=== PATIENT | male | born 1950 | race Caucasian/White ===

== ENCOUNTER → 2016-07-09 | Outpatient (CLI) | payer OTHER ==
[~2016-07-09] MED LIST: ALBINS/ INH; ALBU18002; ALBU1NEB10 INH; AMPHOTERICIN INH; CALC500C3 OR; CALC667C4 PO; DILT120C68 PO; EVER0.5T PO; GUAI1TAB55 PO; INSDGI SC; LEVO75TA PO; LVQ500 PO; MELA3TAB PO; MTR500 PO; MULT-506 PO; MYC180 PO; NVLG SC; NVLGI SC; ONDA4TAB46 PO; OXYC1CAP5 PO; PANT40TA2 PO; POSA1TAB PO; PRED-301 PO; SERT-234 PO; SULF-302 PO; SULF400T7 PO; SUVO1TAB PO; TACR0.5C3 PO; TACR1CAP14 PO; TRMCR515 TOP; VNTHFA/IN INH; ZOLP5TAB6 PO; [UNRECOGNIZED DRUG - CODE] INH; [UNRECOGNIZED DRUG - CODE] PO; tobramycin INH
--- NOTE | 2016-07-09 12:30 | DIAGNOSTIC IMAGING REPORT ---
L-SPINE MIN 4 VIEWS ROUTINE CLINICAL HISTORY: Low-back pain. COMPARISON: CT of the abdomen and pelvis January 03, 2016 FINDINGS: There are suspected bilateral renal calculi. There is an old mild T12 compression fracture. No acute lumbar spine fracture is identified. [id number] multilevel degenerative changes are present with degenerative disc disease and facet arthrosis. No suspicious osseous lesion is identified. IMPRESSION: 1. No acute lumbar spine fracture or subluxation. Old mild T12 compression fracture. 2. Mild to moderate multilevel degenerative disc disease and facet arthrosis. 3. Bilateral nephrolithiasis. Electronically signed by: Arnie Johnson M.D. 07/09/2016 12:28 PM
== END | disposition home or self-care (01) ==
LOC: C.RADBC 11:45
PROVIDERS: ATTEND Internal Medicine
DX: M54.5 Low back pain (principal); T86.819 Unspecified complication of lung transplant; Y83.0 Surgical operation with transplant of whole organ as the cause of abnormal reaction of the patient, or of later complication, without mention of misadventure at the time of the procedure; E83.42 Hypomagnesemia; Z94.2 Lung transplant status; E78.5 Hyperlipidemia, unspecified; Z51.81 Encounter for therapeutic drug level monitoring; Z79.899 Other long term (current) drug therapy; B34.9 Viral infection, unspecified

== ENCOUNTER → 2016-09-04 | Outpatient (CLI) | payer OTHER ==
[~2016-09-04] MED LIST changes: -PANT40TA2 PO; +PRG1 PO; +PRT/40 PO; +SULF-183 PO; -SULF-302 PO; -TACR1CAP14 PO
--- NOTE | 2016-09-04 17:06 | ECHOCARDIOGRAM REPORT ---
*NOTICE TO RECEIVING REPUBLICAN AGENCY This information is strictly Confidential and protected under [place] law. [place] law prohibits you from making any further disclosure of this information unless further disclosure is expressly permitted by the written consent of the person to whom it pertains or is authorized by law. A general authorization for the release of medical or other information is not sufficient for this purpose. Hospital accepts no responsibility if the information is made available to any other person, INCLUDING THE PATIENT. Interpretation Summary * Name: IRON RAND JR Study Date: 09/04/2016 02:07 PM BP: 103/55 mmHg * Patient Location: [facility] HR: 92 * : 1950 (M/d/yyyy) Gender: Male Height: 67 in * Age: 65 yrs Ethnicity: [place] Weight: 160 lb * Ordering Physician: FLORENTINO HEWITT MD * Referring Physician: Florentino Hewitt * Performed By: Monique Snyder RDCS * * Reason For Study: END STAGE RENAL DISEASE, TRANSPLANT * BSA: 1.8 m2 * History: END STAGE RENAL DISEASE, TRANSPLANT * -- Conclusions -- * Compared with 04/17/15 study, mitral regurgitation is much less pronounced, otherwise no significant change. * The left ventricle is normal in size. * Ejection Fraction = 55-60%. * Left ventricular systolic function is normal. * The left ventricular wall motion is normal. * There is moderate concentric left ventricular hypertrophy. * There is trace mitral regurgitation. * The left atrium is mildly dilated. * There is trace tricuspid regurgitation. * Right ventricular systolic pressure is normal. Procedure Details * A complete two-dimensional transthoracic echocardiogram was performed (2D, M-mode, Doppler and color flow Doppler). Left Ventricle * The left ventricle is normal in size. * There is moderate concentric left ventricular hypertrophy. * Ejection Fraction = 55-60%. * Left ventricular systolic function is normal. * The left ventricular wall motion is normal. Right Ventricle * The right ventricle is normal in size and function. * There is normal right ventricular wall thickness. * The right ventricular systolic function is normal. Atria * The left atrium is mildly dilated. * Right atrial size is normal. * The interatrial septum is intact with no evidence for an atrial septal defect. Mitral Valve * The mitral valve is normal in structure and function. * There is no mitral valve stenosis. * There is trace mitral regurgitation. Tricuspid Valve * The tricuspid valve is normal in structure and function. * There is trace tricuspid regurgitation. * Right ventricular systolic pressure is normal. Aortic Valve * The aortic valve is normal in structure and function. * No aortic regurgitation is present. Pulmonic Valve * The pulmonic valve is normal in structure and function. * There is no pulmonic valvular regurgitation. Great Vessels * The aortic root is normal size. * No obvious dissection could be visualized. * The pulmonary artery is normal size. Pericardium/Pleural * There is no pericardial effusion. Great Vessels * Normal inferior vena cava diameter and respiratory variation suggests normal central venous pressure. MMode 2D Measurements and Calculations IVSd 2.0 cm IVSs 2.1 cm LVIDd 4.0 cm LVIDs 2.8 cm LVPWd 1.4 cm LVPWs 1.7 cm IVS/LVPW 1.4 FS 29.6 % EDV(Teich) 69.6 ml ESV(Teich) 29.8 ml EF(Teich) 57.2 % EDV(cubed) 63.5 ml ESV(cubed) 22.2 ml EF(cubed) 65.1 % % IVS thick 4.1 % % LVPW thick 21.7 % LV mass(C)d 291.7 grams LV mass(C)dI 158.6 grams/m\S\2 LV mass(C)s 228.3 grams LV mass(C)sI 124.1 grams/m\S\2 SV(Teich) 39.8 ml SI(Teich) 21.6 ml/m\S\2 SV(cubed) 41.4 ml SI(cubed) 22.5 ml/m\S\2 Ao root diam 3.2 cm Ao root area 8.3 cm\S\2 LA dimension 3.5 cm LA/Ao 1.1 LVAd ap4 29.0 cm\S\2 LVLd ap4 8.3 cm EDV(MOD-sp4) 86.1 ml EDV(sp4-el) 86.0 ml LVAs ap4 16.1 cm\S\2 LVLs ap4 6.8 cm ESV(MOD-sp4) 34.4 ml ESV(sp4-el) 32.7 ml EF(MOD-sp4) 60.0 % EF(sp4-el) 62.0 % LVAd ap2 31.7 cm\S\2 LVLd ap2 8.3 cm EDV(MOD-sp2) 99.0 ml EDV(sp2-el) 102.5 ml LVAs ap2 18.0 cm\S\2 LVLs ap2 6.5 cm ESV(MOD-sp2) 41.5 ml ESV(sp2-el) 42.0 ml EF(MOD-sp2) 58.1 % EF(sp2-el) 59.0 % LVLd %diff 0.01 % EDV(MOD-bp) 92.0 ml LVLs %diff -3.07 % ESV(MOD-bp) 37.4 ml EF(MOD-bp) 59.3 % SV(MOD-sp4) 51.7 ml SI(MOD-sp4) 28.1 ml/m\S\2 SV(MOD-sp2) 57.5 ml SI(MOD-sp2) 31.3 ml/m\S\2 SV(MOD-bp) 54.6 ml SI(MOD-bp) 29.7 ml/m\S\2 SV(sp4-el) 53.4 ml SI(sp4-el) 29.0 ml/m\S\2 SV(sp2-el) 60.4 ml SI(sp2-el) 32.9 ml/m\S\2 Doppler Measurements and Calculations MV E max sam 88.4 cm/sec MV A max sam 75.0 cm/sec MV E/A 1.2 MV dec time 0.23 sec Ao V2 max 173.6 cm/sec Ao max PG 12.1 mmHg Ao max PG (full) 7.4 mmHg LV V1 max PG 4.6 mmHg LV V1 max 107.6 cm/sec TR max sam 212.9 cm/sec
== END | disposition home or self-care (01) ==
LOC: C.CPL 12:36
PROVIDERS: ATTEND Transplant Surgery
DX: Z01.810 Encounter for preprocedural cardiovascular examination (principal); N18.6 End stage renal disease; Z99.2 Dependence on renal dialysis; Z76.82 Awaiting organ transplant status

== ENCOUNTER → 2016-09-06 | Outpatient (CLI) | payer OTHER ==
[~2016-09-06] MED LIST changes: +REGADENOSON 0.4 MG/5 ML SYR ONE
--- NOTE | 2016-09-06 16:02 | MYOCARDIAL PERFUSION SCAN ---
LEXISCAN CARDIOLITE CLINICAL HISTORY: End-stage renal patient/on dialysis,transplant evaluation. COMPARISON: None. TECHNIQUE: For the stress portion of the study, 31.9 mCi of technetium-99m Cardiolite IV was injected at 1:05 p.m. on 09/06/2016. Thirty minutes following the injection, imaging of the heart was performed in multiple projections. For the rest portion of the study, 10.1 mCi of technetium-99m Cardiolite was injected IV at 11:30 a.m. on 09/06/2016. One hour following the injections, imaging of the heart was performed in the same projections. For the stress portion of the study, 0.4 mg of Lexiscan was injected IV as per protocol. ECG showed sinus rhythm with isoelectric ST segments. No ST deviation during pharmacologic stress. Transient chest discomfort noted, resolved within 3 minutes. No ectopy. At the conclusion of the study, the patient was hemodynamically stable and asymptomatic. FINDINGS: Short axis, vertical long axis, and horizontal long axis images were reviewed in detail. No rest or stress defects noted. Gated images were reviewed. Left ventricular systolic function was normal to hyperdynamic with ejection fraction estimated at 70%. No regional wall motional abnormalities. IMJPRESSION: 1. No scintigraphic evidence of myocardial ischemia or myocardial infarction. 2. Normal left ventricular systolic function (ejection fraction = 70%) with no regional wall motion abnormalities. 3. Transient chest discomfort. 4. No ECG changes or ectopy noted during pharmacologic stress. MTDD
== END | disposition home or self-care (01) ==
LOC: C.NUCL 10:41
PROVIDERS: ATTEND Transplant Surgery
DX: Z01.810 Encounter for preprocedural cardiovascular examination (principal); N18.6 End stage renal disease; Z99.2 Dependence on renal dialysis; Z76.82 Awaiting organ transplant status; Z51.81 Encounter for therapeutic drug level monitoring; Z79.899 Other long term (current) drug therapy; T86.819 Unspecified complication of lung transplant; Y83.0 Surgical operation with transplant of whole organ as the cause of abnormal reaction of the patient, or of later complication, without mention of misadventure at the time of the procedure

== ENCOUNTER → 2016-09-06 | Outpatient (CLI) | payer OTHER ==
[~2016-09-06] MED LIST changes: -REGADENOSON 0.4 MG/5 ML SYR ONE
[2016-09-06 11:27] LABS: HEMATOCRIT 25.3 % (42-52); MEAN CORPUSCULAR HEMOGLOBIN 30.6 pg (25-34); MEAN CORPUSCULAR HGB CONC 33.6 g/dl (32-36); RED BLOOD COUNT 2.78 M/uL (4.7-6.1); WHITE BLOOD COUNT 3.55 K/uL (4.8-10.8)
[2016-09-06 11:43] LABS: MEAN PLATELET VOLUME 9.6 fL (7.4-10.4); PLATELET COUNT 72 K/uL (130-400)
[2016-09-06 12:09] LABS: BASO % 0.3 %; BASO ABS # 0.01 K/uL (0-0.2); COMPLETE YES; EOS % 3.9 %; IG% 0.6 %; LYMPH % 29.3 %; LYMPH ABS # 1.04 K/uL (1.2-3.4); MICROCYTOSIS PRESENT; MONO % 12.1 %; NEUT % 53.8 %
[2016-09-06 12:11] LABS: BLOOD UREA NITROGEN 43 mg/dl (7-18); BUN/CREATININE RATIO 7.5 (10-20); CALCIUM 9.3 mg/dl (8.5-10.1); CARBON DIOXIDE 31 mmol/L (21-32); CHLORIDE 97 mmol/L (98-107); GLUCOSE 132 mg/dl (70-99); MAGNESIUM 2.2 mg/dl (1.8-2.4); POTASSIUM 4.2 mmol/L (3.5-5.1); SODIUM 139 mmol/L (136-145)
[2016-09-08 16:31] LABS: CMV DNA PCR QUANT SOURCE Plasma; CMV DNA QN REAL TIME PCR <200 IU/mL (<200); EVEROLIMUS** TC 18883 3.7 ng/mL; FK506 TACROLIMUS HIGHLY SENS 5.1 MCG/L (5-20)
== END | disposition home or self-care (01) ==
LOC: C.LAB 10:45
PROVIDERS: ATTEND Internal Medicine Pulmonary Disease
DX: Z51.81 Encounter for therapeutic drug level monitoring (principal); Z79.899 Other long term (current) drug therapy; N18.4 Chronic kidney disease, stage 4 (severe); T86.819 Unspecified complication of lung transplant; Y83.0 Surgical operation with transplant of whole organ as the cause of abnormal reaction of the patient, or of later complication, without mention of misadventure at the time of the procedure

== ENCOUNTER → 2016-10-16 | Outpatient (CLI) | payer OTHER ==
[~2016-10-16] MED LIST changes: -CALC500C3 OR; +PANT40TA2 PO; -PRG1 PO; -PRT/40 PO; +TACR1CAP14 PO
[2016-10-18 14:27] LABS: HAPTOGLOBIN TC 45427W 166 MG/DL (43-212); PARVOVIRUS B19 QUANT SOURCE Plasma; PARVOVIRUS B19 QUANTITATIVE <100 copies/mL (<100)
== END | disposition home or self-care (01) ==
LOC: C.LAB 08:24
PROVIDERS: ATTEND Internal Medicine Pulmonary Disease
DX: D64.9 Anemia, unspecified (principal)

== ENCOUNTER → 2016-12-18 | Outpatient (CLI) | payer OTHER ==
--- NOTE | 2016-12-18 10:46 | DIAGNOSTIC IMAGING REPORT ---
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 No focal infiltrate. Lungs are considered clear. Minimal linear scarring right base unchanged. No evidence for cardiac enlargement. IMPRESSION: No acute process status post bilateral lung transplantation Electronically signed by: Wesley Baker M.D. 12/18/2016 10:45 AM Dictated Date/Time: 12/18/2016 10:44 AM
--- NOTE | 2016-12-18 11:37 | DIAGNOSTIC IMAGING REPORT ---
ABDOMINAL ULTRASOUND COMPLETE HISTORY: Pain COMPLICATION OF HOOPER PLANTED Lung, fatty LIVER.... COMPARISON: None. FINDINGS: Pancreas: The pancreas demonstrates a normal echotexture. Liver: Heterogeneous internal architecture. Question of early cirrhotic change. No ascites. Gallbladder: No gallbladder wall thickening. No gallstones. CBD: 6 mm Kidneys: Several nonobstructing bilateral renal calcifications. No evidence for hydronephrosis. Spleen: Normal in size. Aorta: Normal in caliber. IVC: Patent. IMPRESSION: 1. Heterogeneous somewhat cirrhotic appearing liver. 2. Several nonobstructing renal calcifications. 3. Otherwise negative study Electronically signed by: Wesley Baker M.D. 12/18/2016 11:35 AM Dictated Date/Time: 12/18/2016 11:33 AM
[2016-12-18 14:27] LABS: INFLUENZA A PCR Neg for Influ A (NEG); INFLUENZA B PCR Neg for Influ B (NEG)
== END | disposition home or self-care (01) ==
LOC: C.ULTR 10:01
PROVIDERS: ATTEND Nurse Practitioner Family
DX: Z94.2 Lung transplant status (principal); T86.819 Unspecified complication of lung transplant; K76.0 Fatty (change of) liver, not elsewhere classified; N18.6 End stage renal disease; Z99.2 Dependence on renal dialysis; T82.858S Stenosis of other vascular prosthetic devices, implants and grafts, sequela; K76.9 Liver disease, unspecified; N20.0 Calculus of kidney; X58.XXXS Exposure to other specified factors, sequela

== ENCOUNTER 2017-02-06 20:36 | Inpatient (IN) | payer OTHER ==
[~2017-02-06] VITALS: Ht 172.7 cm; Wt 76.6 kg
[~2017-02-06 20:36] MED LIST changes: -ALBINS/ INH; -LVQ500 PO; -MTR500 PO; -NVLG SC; -PANT40TA2 PO; +PRT/40 PO; -SULF-183 PO; -TACR1CAP14 PO; -VNTHFA/IN INH; -[UNRECOGNIZED DRUG - CODE] INH; -[UNRECOGNIZED DRUG - CODE] PO
[2017-02-06] MEDS ORDERED: VNTHFA/IN INH (21:36)
[2017-02-06] MEDS ORDERED: ALBINS/ INH (21:36)
[2017-02-06] MEDS ORDERED: [UNRECOGNIZED DRUG - CODE] INH (21:36)
[2017-02-06] MEDS ORDERED: PRG1 PO (21:36)
[2017-02-06] MEDS ORDERED: [UNRECOGNIZED DRUG - CODE] PO (21:36)
[2017-02-06] MEDS ORDERED: NVLG SC (21:36)
[2017-02-06] MEDS ORDERED: INSDGI SC (21:36)
[2017-02-06] MEDS ORDERED: ACETAMINOPHEN 500 MG TAB PO STA (22:13)
--- NOTE | 2017-02-06 22:24 | EMERGENCY ROOM VISIT NOTE ---
History Report prepared by Renita: Monique Figueredo Under the Supervision of: Dr. Arron Marion D.O. First contact with patient: 21:56 Chief Complaint: FEVER Stated Complaint: FEVER AND STOMACH PAINS History of Present Illness The patient is a 66 year old male who presents to the Emergency Room with complaints of a persistent fever that began today. He currently rates his discomfort as an 8/10 in severity. The patient's reports that the patient is a double lung transplant patient and states that he follows with the [facility] lung transplant team. She states that the patient was instructed to bring the patient to the emergency department due to his fever. The patient states that his fever has been measured up to 101 degrees Fahrenheit. He additionally reports abdominal cramps. The patient states that he has had a headache today. He denies any diarrhea, but reports constipation. The patient states that he has a history of kidney disease, stating that he is on dialysis. He states that he no longer makes urine. The patient states that he only received half of his dialysis treatment this morning. He states that he had developed a cough this morning and states that he vomited this morning. The patient denies any rash or being on any new medications. The patient's states that the patient additionally has a history of diabetes. Source of History: patient Onset: today Position: other (global) Symptom Intensity: 8/10 Quality: other (fever) Timing: other (persistent) Associated Symptoms: + headache, + cough, + vomiting, + abdominal pain, No diarrhea Note: Associated Symptoms: constipation Review of Systems See HPI for pertinent positives & negatives. A total of 10 systems reviewed and were otherwise negative. Past Medical & Surgical Medical Problems: (1) A-fib (2) Abdominal pain (3) Anemia (4) Asthma (5) Bronchitis (6) Cancer (7) Chronic steroid use (8) Clostridium difficile colitis (9) Diverticulitis (10) Gastrointestinal disorder (11) Heart disease (12) High cholesterol (13) Hypertension (14) Liver disease (15) Liver failure (16) Pneumonia (17) Pulmonary fibrosis (18) Secondary hyperparathyroidism of renal origin (19) Sleep apnea (20) Thyroid disease Surgical Problems: (1) History of cardiac catheterization (2) History of thoracotomy (3) Lung transplanted Family History FHx: heart disease Hypertension Social History Smoking Status: Never Smoker Alcohol Use: none Drug Use: none Marital Status: Housing Status: lives with significant other Occupation Status: retired Current/Historical Medications Scheduled Albuterol Hfa (Ventolin Hfa), 2-4 PUFFS INH Q6H Albuterol Sulf (Proventil 0.083% 2.5MG/3ML), 2.5 MG INH QAM Calcium Acetate (Phoslo 667 Mg), 2 CAP PO TID Everolimus (Afinitor Disperz), 1 TAB PO BID Guaifenesin Ext Rel (Mucinex Ext Rel), 600 MG PO AMHS Insulin Aspart (Novolog), UNITS SC UD Insulin Glargine (Lantus), 3 UNITS SC HS Levothyroxine Sodium (Synthroid), 75 MCG PO QAM Multivitamin (Multivitamin), 1 TAB PO QPM Pantoprazole (Pantoprazole Sodium), 40 MG PO BID Prednisone (Prednisone), 5 MG PO QAM Sertraline (Zoloft), 150 MG PO HS Sulfamethoxazole-Trimethoprim (Bactrim 400MG/80MG), 1 TAB PO 2XWK Tacrolimus (Tacrolimus), 3 MG PO BID Tobramycin Sulf (Tobramycin Sulfate), 2 ML INH DAILY Triamcinolone Acet (Triamcinolone Acetonide), 1 APPLN TOP BID Scheduled PRN Melatonin (Melatonin), 3 MG PO HS PRN for Insomnia Ondansetron Hcl (Zofran), 4 MG PO Q6 PRN for Nausea Oxycodone Hcl (Oxycodone Hcl), 5 MG PO UD PRN for Pain Zolpidem Tartrate (Zolpidem Tartrate), 1 TAB PO HS PRN for Sleep Allergies Coded Allergies: Cat Dander (Unverified Allergy, Mild, RASH, 02/06/17) Dog Dander (Unverified Allergy, Mild, RASH, 02/06/17) POLLEN (Unverified Allergy, Mild, RASHES, 02/06/17) Physical Exam Vital Signs Date Time Temp Pulse Resp B/P (MAP) Pulse Ox O2 Delivery O2 Flow Rate FiO2 02/07/17 01:06 96 02/07/17 00:40 37.2 103 18 101/65 91 Room Air 02/06/17 23:40 37.8 107 18 104/61 92 Room Air 02/06/17 22:08 92 Room Air 02/06/17 22:08 37.6 94 18 117/55 92 Room Air 02/06/17 21:07 95 02/06/17 20:47 37.8 95 16 127/71 97 Physical Exam GENERAL: Patient is awake, alert, and in no acute distress. Patient is resting comfortably and showing no signs of anxiety EYES: The conjunctivae are clear. The pupils are round and reactive. EARS, NOSE, MOUTH AND THROAT: The nose is without any evidence of any deformity. Mucous membranes are moist tongue is midline NECK: The neck is nontender and supple. RESPIRATORY: Lung sounds are diminished throughout, rales noted at both bases. No tachypnea or conversational dyspnea. CARDIOVASCULAR: Tachycardic rate, but regular rhythm, no definite murmur noted to auscultation. GASTROINTESTINAL: The abdomen is moderately distended and diffusely tender. No guarding or rigidity. MUSCULOSKELETAL/EXTREMITIES: There is no evidence of gross deformity full range of motion is noted in the hips and shoulders SKIN: Pedal edema noted bilaterally. NEUROLOGIC: Patient is awake alert and oriented x3. Medical Decision & Procedures ER Provider Diagnostic Interpretation: Radiology results as stated below per my review and radiologist interpretation: CHEST ONE VIEW PORTABLE CLINICAL HISTORY: Sepsis dyspnea COMPARISON STUDY: 12/18/2016 FINDINGS: Small parenchymal infiltrate left base. Stable bibasilar atelectasis. Unchanging density right midlung. No evidence for cardiac enlargement. IMPRESSION: Small parenchymal infiltrate left base. Chronic and postoperative changes bilaterally. Mild stable cardiomegaly. The above report was generated using voice recognition software. It may contain grammatical, syntax or spelling errors. Electronically signed by: Wesley Baker M.D. 02/06/2017 10:22 PM Dictated Date/Time: 02/06/2017 10:21 PM Preliminary Findings Only See Final Report For Complete Findings CT ABDOMEN & PELVIS: Gallbladder wall thickening. No definite gallstones. Slight surrounding stranding suggested. Correlate clinically to exclude cholecystitis. Ultrasound may be useful. Pancreas is unremarkable. Cirrhotic liver is suggested. Nonobstructing calyceal calculi involving the kidneys with no surrounding stranding. No hydronephrosis. Distal colonic diverticulosis without acute diverticulitis. No colitis or bowel obstruction or appendicitis. No free air or free fluid. Evidence of old granulomatous disease. Small hiatal hernia. Radiologist: Fidel Torrez M.D. Study ready at 23:09 and initial results transmitted at 23:57 Laboratory Results Test 02/06/17 22:30 02/06/17 22:35 Immature Granulocyte % (Auto) 1.1 % White Blood Count 4.73 K/uL (4.8-10.8) Red Blood Count 3.92 M/uL (4.7-6.1) Hemoglobin 11.6 g/dL (14.0-18.0) Hematocrit 36.7 % (42-52) Mean Corpuscular Volume 93.6 fL (80-100) Mean Corpuscular Hemoglobin 29.6 pg (25-34) Mean Corpuscular Hemoglobin Concent 31.6 g/dl (32-36) Platelet Count 54 K/uL (130-400) Mean Platelet Volume 9.7 fL (7.4-10.4) Neutrophils (%) (Auto) 65.9 % Lymphocytes (%) (Auto) 21.6 % Monocytes (%) (Auto) 11.0 % Eosinophils (%) (Auto) 0.4 % Basophils (%) (Auto) 0.0 % Neutrophils # (Auto) 3.12 K/uL (1.4-6.5) Lymphocytes # (Auto) 1.02 K/uL (1.2-3.4) Monocytes # (Auto) 0.52 K/uL (0.11-0.59) Eosinophils # (Auto) 0.02 K/uL (0-0.5) Basophils # (Auto) 0.00 K/uL (0-0.2) Immature Granulocyte # (Auto) 0.05 K/uL (0.00-0.02) Prothrombin Time 10.3 SECONDS (9.0-12.0) Prothromb Time International Ratio 1.0 (0.9-1.1) Activated Partial Thromboplast Time 25.2 SECONDS (21.0-31.0) Partial Thromboplastin Ratio 1.0 Phosphorus Level 2.8 mg/dl (2.5-4.9) Magnesium Level 2.4 mg/dl (1.8-2.4) Total Bilirubin 1.1 mg/dl (0.2-1) Aspartate Amino Transf (AST/SGOT) 26 U/L (15-37) Alanine Aminotransferase (ALT/SGPT) 26 U/L (12-78) Alkaline Phosphatase 89 U/L (45-117) Total Creatine Kinase 46 U/L (39-308) Creatine Kinase MB < 0.5 ng/ml (0.5-3.6) Creatine Kinase MB Ratio (0-3.0) Troponin I < 0.015 ng/ml (0-0.045) Pro-B-Type Natriuretic Peptide 3640 pg/ml (0-900) Total Protein 7.0 gm/dl (6.4-8.2) Albumin 3.5 gm/dl (3.4-5.0) Globulin 3.5 gm/dl (2.5-4.0) Albumin/Globulin Ratio 1.0 (0.9-2) Lipase 122 U/L (73-393) Bedside Lactic Acid Venous 1.84 mmol/L (0.90-1.70) Laboratory results per my review. Medications Administered Medications (Trade) Dose Ordered Sig/Beverley Route Start Time Stop Time Status Last Admin Dose Admin Acetaminophen (Tylenol Tab) 1,000 mg NOW STAT PO 02/06/17 22:13 02/06/17 22:14 DC 02/06/17 22:40 1,000 MG Piperacillin Sod/ Tazobactam Sod (Zosyn Iv) 4.5 gm NOW STAT IV 02/06/17 23:58 02/06/17 23:59 DC 02/07/17 00:12 4.5 GM Sodium Chloride 500 ml @ 999 mls/hr Q31M STAT IV 02/06/17 23:59 02/07/17 00:29 DC 02/07/17 00:12 999 MLS/HR Vancomycin HCl 1500 mg/Sodium Chloride 530 ml @ 200 mls/hr ONE STAT IV 02/07/17 00:55 02/07/17 03:33 DC 02/07/17 01:28 200 MLS/HR Zolpidem Tartrate (Ambien Tab) 5 mg HS PRN PO 02/07/17 01:15 03/09/17 01:14 02/07/17 03:04 5 MG Acetaminophen (Tylenol Tab) 650 mg Q4H PRN PO 02/07/17 01:15 03/09/17 01:14 02/07/17 07:46 650 MG Ondansetron HCl (Zofran Inj) 4 mg Q6H PRN IV 02/07/17 01:15 03/09/17 01:14 02/07/17 07:53 4 MG ECG Indication: abdominal pain, other (fever) Rate (beats per minute): 92 Rhythm: sinus rhythm Findings: 1st degree AV block, Q waves, no ectopy Comparison ECG Date: 08/07/15 Change: no significant change ED Course 2157: The patient was evaluated in room B2. A complete history and physical examination were performed. 2212: Ordered Tylenol Tab 1000 mg PO. 2357: Ordered Zosyn 4.5 gm IV. Medical Decision Differential diagnosis: Etiologies such as viral syndrome, otitis, pharyngitis, pneumonia, influenza, meningitis, urinary tract infection, sepsis, bacteremia, as well as others were entertained. Nursing notes reviewed. Additional history is obtained from the patient's significant other. The patient is a 66-year-old male who presented to emergency department for an evaluation of fever. The patient states he had a fever throughout the day and has a history of lung transplant. The patient did take Tylenol earlier. The patient did not have any specific cough but did have signs of pneumonia on chest x-ray. The patient also had abdominal pain. He was concerned because he has a history of diverticulitis but CAT scan did not show signs of acute diverticulitis. There were some questionable areas of gallbladder pathology on the CT but the patient does not have upper abdominal tenderness and his liver function studies appear normal. I discussed the patient's laboratory and radiographic studies with him. A call was placed to [facility] to discuss the patient' s case with his transplant team but as of now they have not called back. I also discussed his case with the on-call [facility] hospitalist. Medication Reconcilliation Current Medication List: was personally reviewed by me Blood Pressure Screening Patient's blood pressure: Normal blood pressure Blood pressure disposition: Did not require urgent referral Consults Time Called: 0035 Consulting Physician: Dr Guerrero Returned Call: 0040 Additional Consults: Time Called: 0000 Consulted Physician: [facility] Pulmonary- Dr Aguilar Returned Call: 0050 Additional Comments: add Vanco and manage as inpatient. Call if condition changes and warrants transfer Impression Primary Impression: Fever Additional Impressions: Left lower lobe pneumonia Chronic renal failure Thrombocytopenia Pneumonia Scribe Attestation The scribe's documentation has been prepared under my direction and personally reviewed by me in its entirety. I confirm that the note above accurately reflects all work, treatment, procedures, and medical decision making performed by me. Departure Information Referrals Eugenio Lockwood M.D. (PCP) Patient Instructions My [facility] Problem Qualifiers Primary Impression: Fever Fever type: unspecified Qualified Codes: R50.9 - Fever, unspecified Additional Impressions: Left lower lobe pneumonia Pneumonia type: due to unspecified organism Qualified Codes: J18.1 - Lobar pneumonia, unspecified organism Chronic renal failure Chronic kidney disease stage: unspecified stage Qualified Codes: N18.9 - Chronic kidney disease, unspecified Pneumonia Pneumonia type: due to unspecified organism Laterality: left Lung location : lower lobe of lung Qualified Codes: J18.1 - Lobar pneumonia, unspecified organism
[2017-02-06 22:51] LABS: HEMATOCRIT 36.7 % (42-52); MEAN CELL VOLUME 93.6 fL (80-100); MEAN CORPUSCULAR HEMOGLOBIN 29.6 pg (25-34); MEAN CORPUSCULAR HGB CONC 31.6 g/dl (32-36); RED BLOOD COUNT 3.92 M/uL (4.7-6.1); WHITE BLOOD COUNT 4.73 K/uL (4.8-10.8)
[2017-02-06 23:02] LABS: PROTHROMBIN TIME (PATIENT) 10.3 SECONDS (9.0-12.0)
[2017-02-06 23:13] LABS: MEAN PLATELET VOLUME 9.7 fL (7.4-10.4); PLATELET COUNT 54 K/uL (130-400)
[2017-02-06 23:14] LABS: COMPLETE YES; EOS % 0.4 %; IG% 1.1 %; LYMPH % 21.6 %; LYMPH ABS # 1.02 K/uL (1.2-3.4); NEUT % 65.9 %
[2017-02-06 23:20] LABS: ALKALINE PHOSPHATASE 89 U/L (45-117); ALT/SGPT 26 U/L (12-78); AST/SGOT 26 U/L (15-37); BLOOD UREA NITROGEN 43 mg/dl (7-18); BUN/CREATININE RATIO 6.5 (10-20); C-REACTIVE PROTEIN 4.96 mg/dl (0-0.29); CALCIUM 8.5 mg/dl (8.5-10.1); CARBON DIOXIDE 32 mmol/L (21-32); CHLORIDE 96 mmol/L (98-107); GLUCOSE 181 mg/dl (70-99); MAGNESIUM 2.4 mg/dl (1.8-2.4); PHOSPHORUS 2.8 mg/dl (2.5-4.9); SODIUM 136 mmol/L (136-145)
[2017-02-06] MEDS ORDERED: PIPERACILLIN/TAZOBACTAM 4.5 GM/100ML D5W IV STA (23:58)
[2017-02-06] MEDS ORDERED: SODIUM CHLORIDE 0.9% 500ML 500 ML IV STA (23:59)
[2017-02-07] VITALS (9 sets, daily range): BP systolic 88–111; BP diastolic 48–69; PULSE 78–95; TEMP 37.3–38.1; O2SAT 90–97; Ht 172.7 cm; Wt 76.6 kg
[2017-02-07] MEDS ORDERED: VANCOMYCIN INJ 1,500 MG in SODIUM CHLORIDE 0.9% 500ML 500 ML IV STA (00:55)
[2017-02-07] MEDS ORDERED: ONDANSETRON INJ 2 MG/ML 2 ML VIAL IV PRN (01:15)
[2017-02-07] MEDS ORDERED: ONDANSETRON 4 MG TAB PO PRN (01:15)
[2017-02-07] MEDS ORDERED: ACETAMINOPHEN 325 MG TAB PO PRN (01:15)
[2017-02-07] MEDS ORDERED: MAGNESIUM HYDROXIDE SUSP 30 ML UDC PO PRN (01:15)
[2017-02-07] MEDS ORDERED: ALUMINUM/MAGNESIUM/SIMETH (MAALOX MAX) 30 ML UDC PO PRN (01:15)
[2017-02-07] MEDS ORDERED: ALBUTEROL HFA 8 GM INHALER INH PRN (01:15)
[2017-02-07] MEDS ORDERED: VANCOMYCIN INJ 1,000 MG in SODIUM CHLORIDE 0.9% 250ML 250 ML IV SCH (01:30)
[2017-02-07] MEDS ORDERED: POLYETHYLENE (MIRALAX) 17 GM PACK PO PRN (01:45)
[2017-02-07] MEDS ORDERED: LEVOFLOXACIN CONSULT ACTIVE PRN (01:45)
[2017-02-07] MEDS ORDERED: VANCOMYCIN CONSULT ACTIVE PRN (01:45)
[2017-02-07] MEDS ORDERED: PIPERACILL/TAZOBAC CONSULT ACTIVE PRN (01:45)
[2017-02-07] MEDS ORDERED: OXYCODONE HCL IR 5 MG TAB (IMMEDIATE RELEASE) PO PRN (01:45)
--- NOTE | 2017-02-07 02:10 | History and Physical ---
History & Physical Date & Time of Service: Feb 07, 2017 at 01:26 Chief Complaint: Fever And Stomach Pains Primary Care Physician: Eugenio Lockwood M.D. 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 Pt presents with upper quadrant abdominal pain and a fever x 1 day. He was admitted with diverticulitis which was medically managed. He denies SOB above baseline, N/V/D, CP or MALDONADO. He does have a mild cough for 2 days. Initial CXR is suggestive of a LLL infiltrate. Abdominal CT revealed gall bladder thickening and mild stranding. The pt has a fistula and last had dialysis 2 days prior and one day prior to fever onset. 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 2) ESRD - dialysis Tue, [place], Sat 3) C diff 4) HTN 5) Hypothyroidism 6) Diverticulitis 7) Abdominal imaging has been consistent with cirrhosis - this was ruled out with biopsy - he does have a fatty liver 8) Thrombocytopenia - platelet count has been 50-90 consistently Surgical history 1) L arm fistula 2) Lung transplant 2013 - [facility] 3) Surgical wound closure Family History FHx: heart disease Hypertension Social History Smoking Status: Never Smoker Drug Use: none Marital Status: Occupational Status: retired Immunizations History of Influenza Vaccine: Yes Influenza Vaccine Date: Apr 30, 2013 History of Tetanus Vaccine?: Unknown History of Pneumococcal: Yes History of Hepatitis B Vaccine: No Allergies Coded Allergies: Cat Dander (Unverified Allergy, Mild, RASH, 02/06/17) Dog Dander (Unverified Allergy, Mild, RASH, 02/06/17) POLLEN (Unverified Allergy, Mild, RASHES, 02/06/17) Home Medications Scheduled Albuterol Hfa (Ventolin Hfa), 2-4 PUFFS INH Q6H Albuterol Sulf (Proventil 0.083% 2.5MG/3ML), 2.5 MG INH QAM Calcium Acetate (Phoslo 667 Mg), 2 CAP PO TID Everolimus (Afinitor Disperz), 1 TAB PO BID Guaifenesin Ext Rel (Mucinex Ext Rel), 600 MG PO AMHS Insulin Aspart (Novolog), UNITS SC UD Insulin Glargine (Lantus), 3 UNITS SC HS Levothyroxine Sodium (Synthroid), 75 MCG PO QAM Multivitamin (Multivitamin), 1 TAB PO QPM Pantoprazole (Pantoprazole Sodium), 40 MG PO BID Prednisone (Prednisone), 5 MG PO QAM Sertraline (Zoloft), 150 MG PO HS Sulfamethoxazole-Trimethoprim (Bactrim 400MG/80MG), 1 TAB PO 2XWK Tacrolimus (Tacrolimus), 3 MG PO BID Tobramycin Sulf (Tobramycin Sulfate), 2 ML INH DAILY Triamcinolone Acet (Triamcinolone Acetonide), 1 APPLN TOP BID Scheduled PRN Melatonin (Melatonin), 3 MG PO HS PRN for Insomnia Ondansetron Hcl (Zofran), 4 MG PO Q6 PRN for Nausea Oxycodone Hcl (Oxycodone Hcl), 5 MG PO UD PRN for Pain Zolpidem Tartrate (Zolpidem Tartrate), 1 TAB PO HS PRN for Sleep Review of Systems Constitutional: + fever, + sweats, No chills, No weight loss, No weakness Eyes: No worsening of vision, No eye pain ENT: + hearing loss (chronic), No nasal symptoms Respiratory: No cough, No sputum, No wheezing Cardiovascular: No chest pain, No orthopnea Abdomen: + pain, No nausea, No vomiting Musculoskeletal: No joint pain, No muscle pain Genitourinary - Male: No hematuria, No dysuria, No urinary frequency Neurologic: No memory loss, No paralysis, No weakness Psychiatric: No depression symptoms Endocrine: No fatigue Hematologic / Lymphatic: No abnormal bleeding/bruising Integumentary: No rash Physical Exam Vital Signs Date Time Temp Pulse Resp B/P (MAP) Pulse Ox O2 Delivery O2 Flow Rate FiO2 02/07/17 01:06 96 02/07/17 00:40 37.2 103 18 101/65 91 Room Air 02/06/17 23:40 37.8 107 18 104/61 92 Room Air 02/06/17 22:08 92 Room Air 02/06/17 22:08 37.6 94 18 117/55 92 Room Air 02/06/17 21:07 95 02/06/17 20:47 37.8 95 16 127/71 97 General Appearance: WD/WN, no apparent distress Head: normocephalic Eyes: normal inspection, PERRL, EOMI ENT: normal ENT inspection, pharynx normal Neck: supple, no JVD Respiratory/Chest: chest non-tender, lungs clear, normal breath sounds, no respiratory distress, no accessory muscle use Cardiovascular: regular rate, rhythm, no edema, no gallop Abdomen/GI: normal bowel sounds, soft, + tenderness (mostly in RUQ) Back: normal inspection, no CVA tenderness Extremities/Musculoskelatal: normal inspection 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9 % Lymphocytes (%) (Auto) 21.6 % Monocytes (%) (Auto) 11.0 % Eosinophils (%) (Auto) 0.4 % Basophils (%) (Auto) 0.0 % Neutrophils # (Auto) 3.12 1.4-6.5 K/uL Lymphocytes # (Auto) 1.02 1.2-3.4 K/uL Monocytes # (Auto) 0.52 0.11-0.59 K/uL Eosinophils # (Auto) 0.02 0-0.5 K/uL Basophils # (Auto) 0.00 0-0.2 K/uL RDW Standard Deviation 66.3 36.4-46.3 fL RDW Coefficient of Variation 19.3 11.5-14.5 % Immature Granulocyte % (Auto) 1.1 % Immature Granulocyte # (Auto) 0.05 0.00-0.02 K/uL Erythrocyte Sedimentation Rate 22 0-14 mm/hr Prothrombin Time 10.3 9.0-12.0 SECONDS Prothromb Time International Ratio 1.0 0.9-1.1 Activated Partial Thromboplast Time 25.2 21.0-31.0 SECONDS Partial Thromboplastin Ratio 1.0 Sodium Level 136 136-145 mmol/L Potassium Level 4.0 3.5-5.1 mmol/L Chloride Level 96 98-107 mmol/L Carbon Dioxide Level 32 21-32 mmol/L Anion Gap 8.0 3-11 mmol/L Blood Urea Nitrogen 43 7-18 mg/dl Creatinine 6.80 0.60-1.40 mg/dl Est Creatinine Clear Calc Drug Dose 10.1 ml/min Estimated GFR () 8.8 Estimated GFR (Non- 7.6 BUN/Creatinine Ratio 6.5 10-20 Random Glucose 181 70-99 mg/dl Calcium Level 8.5 8.5-10.1 mg/dl Phosphorus Level 2.8 2.5-4.9 mg/dl Magnesium Level 2.4 1.8-2.4 mg/dl Total Bilirubin 1.1 0.2-1 mg/dl Aspartate Amino Transf (AST/SGOT) 26 15-37 U/L Alanine Aminotransferase (ALT/SGPT) 26 12-78 U/L Alkaline Phosphatase 89 45-117 U/L Total Creatine Kinase 46 39-308 U/L Creatine Kinase MB < 0.5 0.5-3.6 ng/ml Creatine Kinase MB Ratio 0-3.0 Troponin I < 0.015 0-0.045 ng/ml C-Reactive Protein 4.96 0-0.29 mg/dl Pro-B-Type Natriuretic Peptide 3640 0-900 pg/ml Total Protein 7.0 6.4-8.2 gm/dl Albumin 3.5 3.4-5.0 gm/dl Globulin 3.5 2.5-4.0 gm/dl Albumin/Globulin Ratio 1.0 0.9-2 Lipase 122 73-393 U/L Bedside Lactic Acid Venous 1.84 0.90-1.70 mmol/L Microbiology Results 02/06/17 Blood Culture, Received Pending 02/06/17 Blood Culture, Received Pending Diagnostic Radiology CXR: LLL infiltrate CT abdomen - gall bladder thickening and peripheral stranding, liver cirrhosis Impression Assessment and Plan 66 y/o M 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 Pt presents with upper quadrant abdominal pain and a fever x 1 day. He was admitted with diverticulitis which was medically managed. He denies SOB above baseline, N/V/D, CP or MALDONADO. He does have a mild cough for 2 days. Initial CXR is suggestive of a LLL infiltrate. Abdominal CT revealed gall bladder thickening and mild stranding. The pt has a fistula and last had dialysis 2 days prior and one day prior to fever onset. 1) Fever - potential sources include gallbladder, LLL pneumonia, fistula access - Imaging is consistent with PNM however exam is more consistent with acute marshal. Pt is immunosuppressed and will be placed on broad-spectrum coverage pending culture results. We will obtain a sputum culture as well if possible. It is not clear if he should suspend use of his immunosuppressants at present and this should be discussed with ID and the transplant service at [facility]. 2) ESRD - we will consult the dialysis service - cont Phoslo 3) IDDM - placed on a sliding scale 4) B/L lung transplant - cont immune suppression - Tacrolimus, Pred - discuss with [facility]/ID AM 5) Hypothyroid - cont Synthroid 6) Thrombocytopenia - is chronic - may be worsening - will trend AM - should likely be placed on Heparin prophylaxis if stable. Full code - SCDs Total time for this admit including review of labs, meds, imaging, records - discussion with pt and ER attending Level of Care Med/Surg Resuscitation Status FULL RESUSCITATION VTE Prophylaxis VTE Risk Assessment Done? Y/N: Yes Risk Level: Moderate Given or contraindicated: SCD's
[2017-02-07] MEDS ORDERED: LEVOFLOXACIN / D5W 750 MG in PREMIXED IN D5W 150 ML IV ONE (03:00)
[2017-02-07] MEDS: ZOLPIDEM TARTRATE 5 MG TAB PO PRN (03:04)
[2017-02-07] MEDS: LEVOTHYROXINE 75 MCG TAB PO SCH (06:15)
[2017-02-07] MEDS: PIPERACILL/TAZOBAC IV 3.375 GM in DEXTROSE 5% 100ML 100 ML IV SCH ×2 (07:46→21:29)
[2017-02-07] MEDS: TACROLIMUS 1 MG CAP PO SCH ×2 (07:47→21:21)
[2017-02-07] MEDS: CALCIUM ACETATE 667MG GELCAP PO SCH ×3 (07:47→18:04)
[2017-02-07] MEDS: PANTOprazole SOD 40 MG TAB PO SCH ×2 (07:47→21:21)
[2017-02-07] MEDS: GUAIFENESIN 600 MG TABCR PO SCH ×2 (07:47→21:20)
[2017-02-07] MEDS: TRIAMCINOLONE ACET 0.5% CR 15 GM TUBE EXT SCH ×2 (07:48→21:20)
--- NOTE | 2017-02-07 07:48 | DIAGNOSTIC IMAGING REPORT ---
ABDOMEN AND PELVIS CT WITHOUT CONTRAST CT DOSE: 332.00 mGy.cm HISTORY: Fever and generalized abdominal pain. TECHNIQUE: Multiaxial CT images of the abdomen and pelvis were performed without contrast. A dose lowering technique was utilized adhering to the principles of ALARA. COMPARISON STUDY: Abdomen and pelvis CT 12/26/2015. FINDINGS: Postoperative changes consistent with prior double lung transplant with bibasilar linear densities suggestive of scarring and a few calcified granulomas. T12 mild superior endplate compression deformity. This is likely chronic. Small to moderate hiatus hernia, unchanged. Nodular contour to the liver consistent with cirrhosis. The spleen is mildly enlarged measuring 13.5 cm in length. No definite hepatic or splenic masses. The adrenal glands are unremarkable. Bilateral nephrolithiasis. No hydronephrosis. The bladder is decompressed. Tiny fat-containing left inguinal hernia. Colonic diverticulosis. There is minimal pericolonic fat stranding at the proximal to mid sigmoid colon. This suggests a developing acute diverticulitis. No evidence for bowel obstruction. Normal appendix. There is also mild fat stranding at the duodenum/benoit hepatis area there is thickening/edema at the gallbladder wall most pronounced along the hepatic surface. This measures up to 1 cm in thickness. This is new from the prior study. IMPRESSION: 1. Gallbladder wall thickening/edema. There is also mild fat stranding surrounding the second portion of the duodenum and extending into the benoit hepatis. These findings are nonspecific and could be due to acute cholecystitis, acute pancreatitis, or less likely a hepatitis. Correlation with right upper quadrant ultrasound and pancreatic enzymes are recommended for further evaluation. 2. Minimal pericolonic fat stranding at the proximal to mid sigmoid colon. This suggests a developing acute diverticulitis. 3. Bilateral nephrolithiasis. No hydronephrosis. 4. Cirrhosis with mild splenomegaly Electronically signed by: Surya Capone M.D. 02/07/2017 7:46 AM Dictated Date/Time: 02/07/2017 7:38 AM
[2017-02-07] MEDS ORDERED: ALBUTEROL 0.083% NEBU SOLN 3 ML VIAL INH SCH (08:00)
[2017-02-07 08:26] LABS: MEAN CELL VOLUME 92.6 fL (80-100); MEAN CORPUSCULAR HEMOGLOBIN 29.2 pg (25-34); MEAN CORPUSCULAR HGB CONC 31.5 g/dl (32-36); RED BLOOD COUNT 3.67 M/uL (4.7-6.1); WHITE BLOOD COUNT 4.55 K/uL (4.8-10.8)
[2017-02-07 08:35] LABS: MEAN PLATELET VOLUME 9.7 fL (7.4-10.4); PLATELET COUNT 45 K/uL (130-400)
--- NOTE | 2017-02-07 09:29 | DIAGNOSTIC IMAGING REPORT ---
ULTRASOUND RIGHT UPPER QUADRANT ABDOMEN CLINICAL HISTORY: Right upper quadrant abdominal pain. Fever. COMPARISON STUDY: Abdominal CT dated 02/06/2017. TECHNIQUE: Real-time, grayscale, and color flow sonography of the right upper quadrant of the abdomen was performed. Images are reviewed in the transverse and longitudinal planes. FINDINGS: Liver: The liver is cirrhotic in morphology and heterogeneous in echotexture. There is nodularity of the hepatic surface contour. There is no intrahepatic biliary ductal dilatation. The main portal vein is patent. Gallbladder: There is nonspecific gallbladder wall thickening. The gallbladder wall measures up to 7 mm. No shadowing gallstones are identified. Trace pericholecystic fluid is questioned. A sonographic Choudhary's sign is reportedly absent. The common bile duct measures up to 0.7 cm in diameter. Pancreas: Visualized portions of the pancreatic head and body are normal in appearance. Right kidney: Survey images of the right kidney demonstrate mild cortical atrophy. There is no hydronephrosis. A 12 mm shadowing calculus is present in the right lower pole. Ascites: None. IMPRESSION: 1. The liver is cirrhotic in morphology and heterogeneous in echotexture. 2. There is nonspecific gallbladder wall thickening. No shadowing gallstones are identified and a sonographic Choudhary's sign is reportedly absent. This is nonspecific and may be related to cirrhosis. These findings are equivocal for acute cholecystitis which is not excluded. If there is strong clinical concern consider nuclear hepatobiliary scan for further assessment. 3. Nonobstructing right renal calculus. Electronically signed by: Lincoln Luna M.D. 02/07/2017 9:28 AM Dictated Date/Time: 02/07/2017 9:20 AM
[2017-02-07] MEDS ORDERED: NURSING VERBAL MED ORDER ONE ×2 (10:45→18:15)
--- NOTE | 2017-02-07 10:45 | Medical Consult ---
Consultation Date of Consultation: Feb 07, 2017. Attending Physician: Arthur Santos MD, PhD Reason for Consultation: immunocompromised, fever, source unclear History of Present Illness 58-year-old male with history of pulmonary fibrosis status post lung transplant , end-stage renal disease on dialysis, who was well until the past several days when he noted onset of upper quadrant abdominal pain mostly across the abdomen and right upper quadrant, associated with fever and chills. He also had a slight cough over this period of time. When fever went over 101, he sought medical attention. He has had chest x-ray which raises the possibility of left lower lobe infiltrate, and CT scan of the abdomen, read by me, shows possible gallbladder thickening as well as possible developing diverticulitis. He has been started empirically on levofloxacin and Zosyn. He is feeling slightly better this morning.Abdominal pain rated 2/10 in intensity at present time. Past Medical/Surgical History Medical Problems: (1) Acute diverticulitis Status: Acute (2) Atrial flutter Status: Acute (3) Chronic renal failure Status: Acute (4) Dehydration Status: Acute (5) Dizziness Status: Acute (6) Fever Status: Acute (7) Hypotension Status: Acute (8) Left lower lobe pneumonia Status: Acute (9) Swelling of left extremity Status: Acute (10) Thrombocytopenia Status: Acute Medical Problems: (1) A-fib (2) Abdominal pain (3) Anemia (4) Asthma (5) Bronchitis (6) Cancer (7) Chronic steroid use (8) Clostridium difficile colitis (9) Diverticulitis (10) Gastrointestinal disorder (11) Heart disease (12) High cholesterol (13) Hypertension (14) Liver disease (15) Liver failure (16) Pneumonia (17) Pulmonary fibrosis (18) Secondary hyperparathyroidism of renal origin (19) Sleep apnea (20) Thyroid disease Surgical Problems: (1) History of cardiac catheterization (2) History of thoracotomy (3) Lung transplanted Family History FHx: heart disease Hypertension Social History Smoking Status: Never Smoker Drug Use: none Marital Status: Housing Status: lives with significant other Occupation Status: retired Allergies Coded Allergies: Cat Dander (Unverified Allergy, Mild, RASH, 02/06/17) Dog Dander (Unverified Allergy, Mild, RASH, 02/06/17) POLLEN (Unverified Allergy, Mild, RASHES, 02/06/17) Current Inpatient Medications Current Inpatient Medications Medications (Trade) Dose Ordered Sig/Beverley Route Start Time Stop Time Status Last Admin Dose Admin Albuterol (Ventolin Hfa Inhaler) 2 puffs Q6H PRN INH 02/07/17 01:15 03/09/17 01:14 Calcium Acetate (Phoslo Cap) 1,334 mg TIDM PO 02/07/17 08:00 03/09/17 07:59 02/07/17 07:47 1,334 MG Guaifenesin (Mucinex Contr Rel Tab) 600 mg AMHS PO 02/07/17 08:00 03/09/17 08:59 02/07/17 07:47 600 MG Insulin Glargine (Lantus Solostar Pen) 3 units HS SC 02/07/17 21:00 03/09/17 20:59 Levothyroxine Sodium (Synthroid Tab) 75 mcg DAILYBB PO 02/07/17 06:30 03/09/17 06:59 Ondansetron HCl (Zofran Tab) 4 mg Q6 PRN PO 02/07/17 01:15 03/09/17 01:14 Pantoprazole Sodium (Protonix Tab) 40 mg BID PO 02/07/17 08:00 03/09/17 08:59 02/07/17 07:47 40 MG Prednisone (PredniSONE TAB) 5 mg QAM PO 02/07/17 08:00 03/09/17 08:59 02/07/17 07:47 5 MG Sertraline HCl (Zoloft Tab) 150 mg HS PO 02/07/17 21:00 03/09/17 20:59 Tacrolimus (Prograf Cap) 3 mg BID PO 02/07/17 08:00 03/09/17 08:59 02/07/17 07:47 3 MG Tobramycin Sulfate (Nebcin Inj) 80 mg BIDR INH 02/07/17 10:00 03/09/17 09:59 Triamcinolone Acetonide (Kenalog 0.5% Crm) 1 appln BID EXT 02/07/17 08:00 03/09/17 08:59 02/07/17 07:48 1 APPLN Zolpidem Tartrate (Ambien Tab) 5 mg HS PRN PO 02/07/17 01:15 03/09/17 01:14 02/07/17 03:04 5 MG Miscellaneous Information (Order Awaiting Action) 1 ea QS N/A 02/07/17 02:15 03/09/17 02:14 Oxycodone HCl (Roxicodone Immediate Rel Tab) 5 mg Q4H PRN PO 02/07/17 01:45 02/21/17 01:44 Acetaminophen (Tylenol Tab) 650 mg Q4H PRN PO 02/07/17 01:15 03/09/17 01:14 02/07/17 07:46 650 MG Al Hydrox/Mg Hydrox/Simethicone (Maalox Max Susp) 15 ml Q4H PRN PO 02/07/17 01:15 03/09/17 01:14 Magnesium Hydroxide (Milk Of Magnesia Susp) 30 ml Q6H PRN PO 02/07/17 01:15 03/09/17 01:14 Polyethylene (Miralax Powder Packet) 17 gm DAILY PRN PO 02/07/17 01:45 03/09/17 01:44 Ondansetron HCl (Zofran Inj) 4 mg Q6H PRN IV 02/07/17 01:15 03/09/17 01:14 02/07/17 07:53 4 MG Piperacillin Sod/ Tazobactam Sod 3.375 gm/Dextrose 115 ml @ 28.75 mls/ hr Q12H IV 02/07/17 08:00 02/21/17 07:59 02/07/17 07:46 28.75 MLS/HR Vancomycin HCl (Consult) 1 ea UD PRN N/A 02/07/17 01:45 03/09/17 01:44 Levofloxacin (Consult) 1 ea UD PRN N/A 02/07/17 01:45 03/09/17 01:44 Piperacillin Sod/ Tazobactam Sod (Consult) 1 ea UD PRN N/A 02/07/17 01:45 03/09/17 01:44 Levofloxacin 500 mg/Prmx 100 ml @ 100 mls/hr Q48H IV 02/09/17 04:00 02/23/17 03:59 Albuterol Sulfate (Ventolin 0.083% 2.5MG/3ML Neb) 2.5 mg BIDR INH 02/07/17 10:00 03/09/17 09:59 Review of Systems Constitutional: + fever, + chills, + weakness Eyes: No problem reported ENT: No problem reported Respiratory: + cough Cardiovascular: No problem reported Abdomen: + pain, + nausea Musculoskeletal: No problem reported Genitourinary - Male: No problem reported Neurologic: No problem reported Psychiatric: No problem reported Endocrine: No problem reported Hematologic / Lymphatic: No problem reported Integumentary: No problem reported Allergic / Immunologic: No problem reported Physical Exam Date Time Temp Pulse Resp B/P (MAP) Pulse Ox O2 Delivery O2 Flow Rate FiO2 02/07/17 09:29 37.3 02/07/17 08:00 Room Air 02/07/17 07:39 95 16 90 Room Air 02/07/17 07:31 38.1 92 18 93/48 (63) 90 Room Air 02/07/17 04:12 37.6 87 19 111/69 95 Room Air 02/07/17 02:22 37.1 90 18 95/53 92 02/07/17 01:06 96 02/07/17 00:40 37.2 103 18 101/65 91 Room Air 02/06/17 23:40 37.8 107 18 104/61 92 Room Air 02/06/17 22:08 92 Room Air 02/06/17 22:08 37.6 94 18 117/55 92 Room Air 02/06/17 21:07 95 02/06/17 20:47 37.8 95 16 127/71 97 General Appearance: WD/WN, no apparent distress Head: normocephalic, atraumatic Eyes: normal inspection, sclerae normal ENT: normal ENT inspection, pharynx normal Neck: supple, no adenopathy, thyroid normal, trachea midline Respiratory/Chest: chest non-tender, no respiratory distress, no accessory muscle use, + rales (LLL) Cardiovascular: regular rate, rhythm, no gallop, no murmur Abdomen/GI: normal bowel sounds, soft, no organomegaly, + tenderness (Upper mid and RUQ ) Back: normal inspection, no CVA tenderness Extremities/Musculoskelatal: normal inspection, no calf tenderness Neurologic/Psych: alert, oriented x 3 Skin: normal color, warm/dry, no rash Lymphatic: no adenopathy Laboratory Results Date/Time Source Procedure Growth Status 02/06/17 22:35 Blood Blood Culture Pending Received 02/06/17 22:20 Blood Blood Culture Pending Received Last 24 Hours Test 02/06/17 22:30 02/06/17 22:35 02/07/17 07:36 02/07/17 07:52 White Blood Count 4.73 K/uL 4.55 K/uL Red Blood Count 3.92 M/uL 3.67 M/uL Hemoglobin 11.6 g/dL 10.7 g/dL Hematocrit 36.7 % 34.0 % Mean Corpuscular Volume 93.6 fL 92.6 fL Mean Corpuscular Hemoglobin 29.6 pg 29.2 pg Mean Corpuscular Hemoglobin Concent 31.6 g/dl 31.5 g/dl Platelet Count 54 K/uL 45 K/uL Mean Platelet Volume 9.7 fL 9.7 fL Neutrophils (%) (Auto) 65.9 % Lymphocytes (%) (Auto) 21.6 % Monocytes (%) (Auto) 11.0 % Eosinophils (%) (Auto) 0.4 % Basophils (%) (Auto) 0.0 % Neutrophils # (Auto) 3.12 K/uL Lymphocytes # (Auto) 1.02 K/uL Monocytes # (Auto) 0.52 K/uL Eosinophils # (Auto) 0.02 K/uL Basophils # (Auto) 0.00 K/uL RDW Standard Deviation 66.3 fL 66.8 fL RDW Coefficient of Variation 19.3 % 19.6 % Immature Granulocyte % (Auto) 1.1 % Immature Granulocyte # (Auto) 0.05 K/uL Erythrocyte Sedimentation Rate 22 mm/hr Prothrombin Time 10.3 SECONDS Prothromb Time International Ratio 1.0 Activated Partial Thromboplast Time 25.2 SECONDS Partial Thromboplastin Ratio 1.0 Sodium Level 136 mmol/L Potassium Level 4.0 mmol/L Chloride Level 96 mmol/L Carbon Dioxide Level 32 mmol/L Anion Gap 8.0 mmol/L Blood Urea Nitrogen 43 mg/dl Creatinine 6.80 mg/dl Est Creatinine Clear Calc Drug Dose 10.1 ml/min Estimated GFR () 8.8 Estimated GFR (Non- 7.6 BUN/Creatinine Ratio 6.5 Random Glucose 181 mg/dl Calcium Level 8.5 mg/dl Phosphorus Level 2.8 mg/dl Magnesium Level 2.4 mg/dl Total Bilirubin 1.1 mg/dl Aspartate Amino Transf (AST/SGOT) 26 U/L Alanine Aminotransferase (ALT/SGPT) 26 U/L Alkaline Phosphatase 89 U/L Total Creatine Kinase 46 U/L Creatine Kinase MB < 0.5 ng/ml Creatine Kinase MB Ratio Troponin I < 0.015 ng/ml C-Reactive Protein 4.96 mg/dl Pro-B-Type Natriuretic Peptide 3640 pg/ml Total Protein 7.0 gm/dl Albumin 3.5 gm/dl Globulin 3.5 gm/dl Albumin/Globulin Ratio 1.0 Lipase 122 U/L Bedside Lactic Acid Venous 1.84 mmol/L Bedside Glucose 134 mg/dl Random Vancomycin Level 27.1 mcg/ml Test 02/07/17 10:14 02/07/17 10:24 Patient Name: IRON RAND JR Unit Number: [id number] Dictated: 02/07/17737 Transcribed: 02/07/17737 [employer] Printed Date/Time: [~ rep prt dt]/[~ rep prt tm] [~ rep ct labl] - [~ rep ct ivnm] [facility] [place] [address] Dictated: 02/07/17737 Transcribed: 02/07/17737 [employer] Printed Date/Time: [~ rep prt dt]/[~ rep prt tm] [~ rep ct labl] - [~ rep ct ivnm] ABDOMEN AND PELVIS CT WITHOUT CONTRAST CT DOSE: 332.00 mGy.cm HISTORY: Fever and generalized abdominal pain. TECHNIQUE: Multiaxial CT images of the abdomen and pelvis were performed without contrast. A dose lowering technique was utilized adhering to the principles of ALARA. COMPARISON STUDY: Abdomen and pelvis CT 12/26/2015. FINDINGS: Postoperative changes consistent with prior double lung transplant with bibasilar linear densities suggestive of scarring and a few calcified granulomas. T12 mild superior endplate compression deformity. This is likely chronic. Small to moderate hiatus hernia, unchanged. Nodular contour to the liver consistent with cirrhosis. The spleen is mildly enlarged measuring 13.5 cm in length. No definite hepatic or splenic masses. The adrenal glands are unremarkable. Bilateral nephrolithiasis. No hydronephrosis. The bladder is decompressed. Tiny fat-containing left inguinal hernia. Colonic diverticulosis. There is minimal pericolonic fat stranding at the proximal to mid sigmoid colon. This suggests a developing acute diverticulitis. No evidence for bowel obstruction. Normal appendix. There is also mild fat stranding at the duodenum/benoit hepatis area there is thickening/edema at the gallbladder wall most pronounced along the hepatic surface. This measures up to 1 cm in thickness. This is new from the prior study. IMPRESSION: 1. Gallbladder wall thickening/edema. There is also mild fat stranding surrounding the second portion of the duodenum and extending into the benoit hepatis. These findings are nonspecific and could be due to acute cholecystitis, acute pancreatitis, or less likely a hepatitis. Correlation with right upper quadrant ultrasound and pancreatic enzymes are recommended for further evaluation. 2. Minimal pericolonic fat stranding at the proximal to mid sigmoid colon. This suggests a developing acute diverticulitis. 3. Bilateral nephrolithiasis. No hydronephrosis. 4. Cirrhosis with mild splenomegaly Electronically signed by: Surya Capone M.D. 02/07/2017 7:46 AM Dictated Date/Time: 02/07/2017 7:38 AM The status of this report is Signed. Draft = Not yet reviewed or approved by Radiologist. Signed = Reviewed and approved by Radiologist. <AttendingPhy>Kenny Guerrero M.D.</AttendingPhy> <FamilyPhy>Eugenio Lockwood M.D.</ FamilyPhy> <PrimaryPhy>Eugenio Lockwood M.D.</PrimaryPhy> <UnitNumber>[id number]</ UnitNumber> <VisitNumber>[id number]</VisitNumber> <PatientName>IRON RAND I JR</PatientName> <DateOfBirth>1950</DateOfBirth> <Location>C[facility] </Location> <ServiceDate>02/06/17</ServiceDate> <MNE>ESINDI</MNE> <OrderingPhy> Arron Marion D.O.</OrderingPhy> <OrderingPhyMNE>f rep ord dr dan</ OrderingPhyMNE> <DictatingPhyMNE>f rep dict dr dan</DictatingPhyMNE> <CCListMNE> f rep ct sheylae</CCListMNE> <AdmittingPhyMNE>f pt admit dr dan</AdmittingPhyMNE> < AttendingPhyMNE>f pt attend dr dan</AttendingPhyMNE> <ConsultingPhyMNE>f pt consult dr dan</ConsultingPhyMNE> <FamilyPhyMNE>f pt fam dr dan</FamilyPhyMNE> <OtherPhyMNE>f pt other dr dan</OtherPhyMNE> < PrimaryPhyMNE>f pt prim care dr dan</PrimaryPhyMNE> <ReferringPhyMNE>f pt referring dr dan</ReferringPhyMNE> Assessment & Plan 66-year-old male, immunocompromised status post lung transplant, now presents with fever, abdominal pain, and cough with x-ray findings showing possible left lower lobe pneumonia as well as possible cholecystitis and diverticulitis. Patient should be continued on broad-spectrum antibiotic therapy with Zosyn and levofloxacin pending further culture results. Will order Legionella urinary antigen. Surgical consultation pending. Will follow.
[2017-02-07] MEDS ORDERED: PHARMACY GLYCEMIC MGMT CONSULT PRN (10:54)
[2017-02-07] MEDS: ALBUTEROL 0.083% NEBU SOLN 3 ML VIAL INH SCH ×2 (11:16→19:16)
[2017-02-07] MEDS: TOBRAMYCIN SULF 40 MG/ML 2 ML VIAL INH SCH ×2 (11:16→19:38)
[2017-02-07] MEDS: SODIUM CHLORIDE 0.9% 1000ML 1,000 ML IV SCH (11:34)
[2017-02-07] MEDS: INSULIN ASPART 100 UNITS/ML 3 ML PEN SC SCH ×3 (12:43→21:36)
--- NOTE | 2017-02-07 12:50 | Pharmacy Progress Note ---
Glycemic Control Intl Consult Date of Service Feb 07, 2017. Scope Glycemic Pharmacist consulted by Dr Santos on 02/07/17 for glycemic control ( specifically Novolog sliding scale) and to write orders per [facility] inpatient glycemic control protocol Objective Weight (Kilograms): 74.200 Accuchecks BSG (last 24hrs): Test 02/06/17 22:30 02/07/17 07:36 02/07/17 11:51 02/07/17 12:27 Random Glucose 181 mg/dl (70-99) Bedside Glucose 134 mg/dl (70-99) 156 mg/dl (70-99) Laboratory Data (last 24hrs) Test 02/06/17 22:30 02/07/17 07:52 02/07/17 12:27 Anion Gap 8.0 mmol/L BUN/Creatinine Ratio 6.5 Blood Urea Nitrogen 43 mg/dl Creatinine 6.80 mg/dl Potassium Level 4.0 mmol/L Sodium Level 136 mmol/L White Blood Count 4.73 K/uL 4.55 K/uL Red Blood Count 3.92 M/uL Hemoglobin 11.6 g/dL Hematocrit 36.7 % Mean Corpuscular Volume 93.6 fL Mean Corpuscular Hemoglobin 29.6 pg Mean Corpuscular Hemoglobin Concent 31.6 g/dl Platelet Count 54 K/uL Mean Platelet Volume 9.7 fL Neutrophils (%) (Auto) 65.9 % Lymphocytes (%) (Auto) 21.6 % Monocytes (%) (Auto) 11.0 % Eosinophils (%) (Auto) 0.4 % Basophils (%) (Auto) 0.0 % Neutrophils # (Auto) 3.12 K/uL Lymphocytes # (Auto) 1.02 K/uL Monocytes # (Auto) 0.52 K/uL Eosinophils # (Auto) 0.02 K/uL Basophils # (Auto) 0.00 K/uL Recent Pertinent Medications Outpatient Anti-diabetic Regimen: * Lantus 3 units qHS * Novolog per sliding scale (patient reports 3 units for BSG 120-150, 4 units for above 150, etc) <- need to confirm this * A1c = 4.9%, however this is unreliable in ESRD patient The patient is currently receiving: * Basal insulin: Lantus 3 units every 24 hours Risk Factors for Insulin Resistance: * Steroids: prednisone 5 mg daily - outpatient medication * Diet: currently NPO Assessment & Plan ASSESSMENT: * 66 y/o male with history of bilateral lung transplant and ESRD, admitted with fevers * Patient requires very little insulin as an outpatient, utilizing only 3 units of Lantus * The A1c is unreliable; however, BSG data from his last admission indicate that he was controlled on the current dose of Lantus and ~3-4 units of Novolog each day. * Will plan to initiate a conservative regimen of short-acting Novolog. Will base this off of patient's weight and stress level of ~2. * ADA & AACE recommend a goal blood sugar range 140-180 mg/dl for the majority of critically ill & non-critically ill patients. However, more stringent targets may be selected in individual cases. Will utilize more stringent goal of 110-150mg/dl based on patient age & comorbidities. Additionally, tighter glycemic control is warranted to facilitate wound/infection healing. PLAN FOR INPATIENT GLYCEMIC CONTROL: * Continue Lantus as ordered by provider * Correctional Insulin with NOVOLOG per scale ACHS or Q6hrs while NPO * Goal Range: Low 110 mg/dL - High 150 mg/dL * Correction Factor: 30 mg/dL/unit * Carb ratio: 1 unit per 15 gm CHO consumed * Of note, patient's nurse called re: lunch BSG and patient said he would normally take 3 units for a BSG of 156. Since he is NPO, I instructed her to just give the 1 unit. Will need to follow up with confirming outpatient regimen. * Please note that the plan above was derived based on current level of insulin resistance and hospital stress. These recommendations are appropriate for inpatient admission only. Plan of care upon discharge will need to be reassessed to avoid potential outpatient hypo/hyperglycemia. Thank you.
[2017-02-07 13:28] LABS: CALCIUM 8.3 mg/dl (8.5-10.1); CREATININE 7.6 mg/dl (0.60-1.40); POTASSIUM 4.1 mmol/L (3.5-5.1)
--- NOTE | 2017-02-07 15:09 | Pharmacy Progress Note ---
Pharmacy Abx Initial Consult Date of Service Feb 07, 2017. Pharmacy Dosing Scope Date of Consult: 02/05/2017 Consultation requested by: Dr. Guerrero Pharmacy is consulted to initiate Vancomycin/Levofloxacin/Zosyn IV dosing therapy, order appropriate labs and adjust drug dose/frequency. Subjective The patient is a 66 year old male admitted on Feb 07, 2017 at 01:19. Objective Height (Feet): 5 Height (Inches): 8.00 Weight (Kilograms): 74.200 Vital Signs (Past 12Hrs) Vital Signs Past 12 Hours Date Time Temp Pulse Resp B/P (MAP) Pulse Ox O2 Delivery O2 Flow Rate FiO2 02/07/17 11:16 78 16 97 Room Air 02/07/17 09:29 37.3 02/07/17 08:00 Room Air 02/07/17 07:39 95 16 90 Room Air 02/07/17 07:31 38.1 92 18 93/48 (63) 90 Room Air 02/07/17 04:12 37.6 87 19 111/69 95 Room Air Lab Results (24Hrs) Laboratory Tests (24 Hours) Test 02/06/17 22:30 02/07/17 07:52 02/07/17 10:24 White Blood Count 4.73 K/uL (4.8-10.8) L 4.55 K/uL (4.8-10.8) L Red Blood Count 3.92 M/uL (4.7-6.1) L Hemoglobin 11.6 g/dL (14.0-18.0) L Hematocrit 36.7 % (42-52) L Mean Corpuscular Volume 93.6 fL (80-100) Mean Corpuscular Hemoglobin 29.6 pg (25-34) Mean Corpuscular Hemoglobin Concent 31.6 g/dl (32-36) L Platelet Count 54 K/uL (130-400) L Mean Platelet Volume 9.7 fL (7.4-10.4) Neutrophils (%) (Auto) 65.9 % Lymphocytes (%) (Auto) 21.6 % Monocytes (%) (Auto) 11.0 % Eosinophils (%) (Auto) 0.4 % Basophils (%) (Auto) 0.0 % Neutrophils # (Auto) 3.12 K/uL (1.4-6.5) Lymphocytes # (Auto) 1.02 K/uL (1.2-3.4) L Monocytes # (Auto) 0.52 K/uL (0.11-0.59) Eosinophils # (Auto) 0.02 K/uL (0-0.5) Basophils # (Auto) 0.00 K/uL (0-0.2) Total Creatine Kinase 46 U/L (39-308) C-Reactive Protein 9.61 mg/dl (0-0.29) H Erythrocyte Sedimentation Rate 7 mm/hr (0-14) Lactic Acid Level 1.8 mmol/L (0.4-2.0) Procalcitonin 2.94 ng/ml (0-0.5) H Item Value Date Time Random Vancomycin Level 27.1 mcg/ml 02/07/17 0752 Micro Results Date/Time Source Procedure Growth Status 02/06/17 22:35 Blood Blood Culture Pending Received 02/06/17 22:20 Blood Blood Culture Pending Received Risk Factors for Resistance * Chronic dialysis within the past 30 days * Immunocompromised (chronic steroid therapy, chemotherapy, immunomodulators) Assessment & Plan Assessment 66 year old male admitted over night with possible bacteremia and LLL pneumonia. Patient immunocompromised secondary to bilateral lung transplant in June 2014 and with ESRD on HD on //Sat. He has not been dialyzed thus far today. Patient empirically started on broad spectrum IV antibiotics. Blood cultures X 2 pending. Vancomycin random level this morning = 27.1 mcg/mL Plan IV Vancomycin, IV Zosyn and IV Levofloxacin empiric coverage for possible bacteremia and LLL pneumonia Vancomycin IV * Loading dose: 1500 mg (20 mg/kg) * Goal trough level for bacteremia/pneumonia: 15 to 20 mcg/mL * Random level ordered for 02/08/17 with AM labs * Will re-dose when random level reaches desired goal range. Will preferably dose after dialysis on HD days. Piperacillin/tazobactam * 4.5 g bolus administered over 30 minutes, then 3.375 g IV extended infusion every 12 hours for CrCl 20 mL/min or less and dialysis. Levofloxacin * Intermittent HD: 750mg X 1, then 500mg IV every 48 hours. Pharmacy will continue to follow and will adjust dose/frequency as necessary. Thank you.
--- NOTE | 2017-02-07 15:31 | Progress Note ---
Progress Note Date of Service Feb 07, 2017. Progress Note Patient admitted after midnight. Seen and examined by me. Patient reports feeling much better today. He complains of a productive cough with yellow sputum and intermittent wheezing. He had been feeling feverish yesterday and overnight but denies any fevers, chills or sweats currently. He also had some nausea early this morning without vomiting that has since resolved. He denies any abdominal pain now. The patient denies fevers, chills, sweats, chest pain, palpitations, claudication, nausea, vomiting, abdominal pain, dysuria, hematuria, urinary retention, paralysis, weakness, numbness and tingling. Physical exam pertinent for systolic murmur, coarse breath sounds throughout and mild tenderness in RUQ with palpation. Physical exam otherwise unremarkable. A/P: Fevers secondary to acute cholecystitis vs LLL PNA -Admit to med/surg -General surgery consulted, appreciate recs. If surgery is needed, pt would prefer to go to [facility] due to his complicated medical history and h/ o surgeries there -HIDA scan ordered this afternoon -RUQ U/S shows cirrhosis. Nonspecific gallbladder wall thickening. No shadowing gallstones identified and sonographic Choudhary's sign absent. This is nonspecific and may be related to cirrhosis. Findings equivocal for acute cholecystitis which is not excluded. Non-obstructing right renal calculus. -NPO -Infectious disease consulted, appreciate recs: Continue broad spectrum antibiotics pending cultures. Check legionella antigen in urine. -Blood cultures pending -Continue Levaquin 500 mg IV q48h, Zosyn and vancomycin IV for now -Procalcitonin elevated at 2.94 -Repeat ESR WNL -Repeat CRP increased to 9.61 -GI consulted, appreciate recs ESRD on HD -Nephrology consulted appreciate recs DM II -Pharmacy consulted for glycemic control
--- NOTE | 2017-02-07 16:07 | Surgery Consultation ---
Consultation Date of Consultation: Feb 07, 2017. Attending Physician: Arthur Santos MD, PhD Reason for Consultation: RUQ abdominal pain, fever, acute cholecystitis? (Roberta Welsh .HOLDEN) History of Present Illness Todd is a very pleasant 66 year-old male with medical history of pulmonary fibrosis s/p lung transplant in 2013 on chronic prednisone, diabetes mellitus, end stage renal disease on hemodialysis, hypertension, and thrombocytopenia who presented to emergency department last evening with complaint of fever and generalized cramping abdominal pain that began two days ago. States he started having generalized cramping abdominal pain in the morning and last most of day and then developed fever. States he noticed some nausea but no vomiting. Had a cough as well for last 2 days. No shortness of breath, chest pain, changes in bowel habits, diarrhea, constipation, blood in stools, black/tarry stools, or acholic stools. Has never had pain like this before. Pain did not started after eating certain type of foods. He mostly presented to emergency room because of persistent fever. He had a CT scan of abdomen and pelvis which showed "gallbladder wall thickening /edema. There is also mild fat stranding surrounding the second portion of the duodenum and extending into the benoit hepatis. These findings are nonspecific and could be due to acute cholecystitis, acute pancreatitis, or less likely a hepatitis. Correlation with right upper quadrant ultrasound and pancreatic enzymes are recommended for further evaluation." Ct scan also showed minimal pericolonic fat stranding at the proximal to mid sigmoid colon. This suggests a developing acute diverticulitis. His labs showed no leukocytosis. LFTs were normal however total bilirubin elevated at 1.1. Lipase wnl. He then had an US of the abdomen which showed nonspecific gallbladder wall thickening and no gallstones. Since admission, he has eaten and tolerated breakfast. Pain has been vastly improved and is now not having any abdominal pain. States he is feeling well other than his cough and sputum production. (Roberta Welsh .HOLDEN) Past Medical/Surgical History Medical Problems: (1) Acute diverticulitis Status: Acute (2) Atrial flutter Status: Acute (3) Chronic renal failure Status: Acute (4) Dehydration Status: Acute (5) Dizziness Status: Acute (6) Fever Status: Acute (7) Hypotension Status: Acute (8) Left lower lobe pneumonia Status: Acute (9) Swelling of left extremity Status: Acute (10) Thrombocytopenia Status: Acute Past Surgical History: 1. Lung transplant 2013 2. Fistula creation 2013 3. 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 (Roberta Welsh PA-C) Family History FHx: heart disease Hypertension (Roberta Welsh PA-C) FHx: heart disease Hypertension (Wesley Barriga M.D.) Social History Smoking Status: Never Smoker Drug Use: none Marital Status: Housing Status: lives with significant other Occupation Status: retired (Roberta Welsh PA-C) Allergies Coded Allergies: Cat Dander (Unverified Allergy, Mild, RASH, 02/06/17) Dog Dander (Unverified Allergy, Mild, RASH, 02/06/17) POLLEN (Unverified Allergy, Mild, RASHES, 02/06/17) Home Medications Scheduled Albuterol Hfa (Ventolin Hfa), 2-4 PUFFS INH Q6H Albuterol Sulf (Proventil 0.083% 2.5MG/3ML), 2.5 MG INH QAM Calcium Acetate (Phoslo 667 Mg), 2 CAP PO TID Everolimus (Afinitor Disperz), 1 TAB PO BID Guaifenesin Ext Rel (Mucinex Ext Rel), 600 MG PO AMHS Insulin Aspart (Novolog), UNITS SC UD Insulin Glargine (Lantus), 3 UNITS SC HS Levothyroxine Sodium (Synthroid), 75 MCG PO QAM Multivitamin (Multivitamin), 1 TAB PO QPM Pantoprazole (Pantoprazole Sodium), 40 MG PO BID Prednisone (Prednisone), 5 MG PO QAM Sertraline (Zoloft), 150 MG PO HS Sulfamethoxazole-Trimethoprim (Bactrim 400MG/80MG), 1 TAB PO 2XWK Tacrolimus (Tacrolimus), 3 MG PO BID Tobramycin Sulf (Tobramycin Sulfate), 2 ML INH DAILY Triamcinolone Acet (Triamcinolone Acetonide), 1 APPLN TOP BID Scheduled PRN Melatonin (Melatonin), 3 MG PO HS PRN for Insomnia Ondansetron Hcl (Zofran), 4 MG PO Q6 PRN for Nausea Oxycodone Hcl (Oxycodone Hcl), 5 MG PO UD PRN for Pain Zolpidem Tartrate (Zolpidem Tartrate), 1 TAB PO HS PRN for Sleep Current Inpatient Medications Current Inpatient Medications Medications (Trade) Dose Ordered Sig/Beverley Route Start Time Stop Time Status Last Admin Dose Admin Albuterol (Ventolin Hfa Inhaler) 2 puffs Q6H PRN INH 02/07/17 01:15 03/09/17 01:14 Calcium Acetate (Phoslo Cap) 1,334 mg TIDM PO 02/07/17 08:00 03/09/17 07:59 02/07/17 07:47 1,334 MG Guaifenesin (Mucinex Contr Rel Tab) 600 mg AMHS PO 02/07/17 08:00 03/09/17 08:59 02/07/17 07:47 600 MG Insulin Glargine (Lantus Solostar Pen) 3 units HS SC 02/07/17 21:00 03/09/17 20:59 Levothyroxine Sodium (Synthroid Tab) 75 mcg DAILYBB PO 02/07/17 06:30 03/09/17 06:59 Ondansetron HCl (Zofran Tab) 4 mg Q6 PRN PO 02/07/17 01:15 03/09/17 01:14 Pantoprazole Sodium (Protonix Tab) 40 mg BID PO 02/07/17 08:00 03/09/17 08:59 02/07/17 07:47 40 MG Prednisone (PredniSONE TAB) 5 mg QAM PO 02/07/17 08:00 03/09/17 08:59 02/07/17 07:47 5 MG Sertraline HCl (Zoloft Tab) 150 mg HS PO 02/07/17 21:00 03/09/17 20:59 Tacrolimus (Prograf Cap) 3 mg BID PO 02/07/17 08:00 03/09/17 08:59 02/07/17 07:47 3 MG Tobramycin Sulfate (Nebcin Inj) 80 mg BIDR INH 02/07/17 10:00 03/09/17 09:59 02/07/17 11:16 80 MG Triamcinolone Acetonide (Kenalog 0.5% Crm) 1 appln BID EXT 02/07/17 08:00 03/09/17 08:59 02/07/17 07:48 1 APPLN Zolpidem Tartrate (Ambien Tab) 5 mg HS PRN PO 02/07/17 01:15 03/09/17 01:14 02/07/17 03:04 5 MG Miscellaneous Information (Order Awaiting Action) 1 ea QS N/A 02/07/17 02:15 03/09/17 02:14 Oxycodone HCl (Roxicodone Immediate Rel Tab) 5 mg Q4H PRN PO 02/07/17 01:45 02/21/17 01:44 Acetaminophen (Tylenol Tab) 650 mg Q4H PRN PO 02/07/17 01:15 03/09/17 01:14 02/07/17 07:46 650 MG Al Hydrox/Mg Hydrox/Simethicone (Maalox Max Susp) 15 ml Q4H PRN PO 02/07/17 01:15 03/09/17 01:14 Magnesium Hydroxide (Milk Of Magnesia Susp) 30 ml Q6H PRN PO 02/07/17 01:15 03/09/17 01:14 Polyethylene (Miralax Powder Packet) 17 gm DAILY PRN PO 02/07/17 01:45 03/09/17 01:44 Ondansetron HCl (Zofran Inj) 4 mg Q6H PRN IV 02/07/17 01:15 03/09/17 01:14 02/07/17 07:53 4 MG Piperacillin Sod/ Tazobactam Sod 3.375 gm/Dextrose 115 ml @ 28.75 mls/ hr Q12H IV 02/07/17 08:00 02/21/17 07:59 02/07/17 07:46 28.75 MLS/HR Vancomycin HCl (Consult) 1 ea UD PRN N/A 02/07/17 01:45 03/09/17 01:44 Levofloxacin (Consult) 1 ea UD PRN N/A 02/07/17 01:45 03/09/17 01:44 Piperacillin Sod/ Tazobactam Sod (Consult) 1 ea UD PRN N/A 02/07/17 01:45 03/09/17 01:44 Levofloxacin 500 mg/Prmx 100 ml @ 100 mls/hr Q48H IV 02/09/17 04:00 02/23/17 03:59 Albuterol Sulfate (Ventolin 0.083% 2.5MG/3ML Neb) 2.5 mg BIDR INH 02/07/17 10:00 03/09/17 09:59 02/07/17 11:16 2.5 MG Miscellaneous Information (Consult Glycemic Management Pharmacy) 1 ea UD PRN N/A 02/07/17 10:54 03/09/17 10:53 Sodium Chloride 1,000 ml @ 60 mls/hr [id number] IV 02/07/17 11:00 03/09/17 10:59 02/07/17 11:34 60 MLS/HR Insulin Aspart (novoLOG ASPART) SLIDING SCALE ACHS SC 02/07/17 12:00 03/09/17 11:59 02/07/17 12:43 1 UNITS Lactobacillus Acidophilus (Floranex Tab) 4 tab TIDM PO 02/07/17 17:00 03/09/17 16:59 (Roberta Welsh, PA-C) Review of Systems Constitutional: + fever, + chills, No sweats Respiratory: + cough, + sputum, No shortness of breath, No dyspnea on exertion Cardiovascular: No chest pain Abdomen: + pain, + nausea, No vomiting, No diarrhea, No constipation Hematologic / Lymphatic: + abnormal bleeding/bruising Integumentary: No rash (Roberta Welsh, PA-C) Physical Exam Date Time Temp Pulse Resp B/P (MAP) Pulse Ox O2 Delivery O2 Flow Rate FiO2 02/07/17 11:16 78 16 97 Room Air 02/07/17 09:29 37.3 02/07/17 08:00 Room Air 02/07/17 07:39 95 16 90 Room Air 02/07/17 07:31 38.1 92 18 93/48 (63) 90 Room Air 02/07/17 04:12 37.6 87 19 111/69 95 Room Air 02/07/17 02:22 37.1 90 18 95/53 92 02/07/17 01:06 96 02/07/17 00:40 37.2 103 18 101/65 91 Room Air 02/06/17 23:40 37.8 107 18 104/61 92 Room Air 02/06/17 22:08 92 Room Air 02/06/17 22:08 37.6 94 18 117/55 92 Room Air 02/06/17 21:07 95 02/06/17 20:47 37.8 95 16 127/71 97 General Appearance: WD/WN, no apparent distress Head: normocephalic, atraumatic Eyes: sclerae normal ENT: hearing grossly normal Neck: trachea midline Respiratory/Chest: lungs clear, normal breath sounds, no respiratory distress, no accessory muscle use Cardiovascular: regular rate, rhythm, no murmur Abdomen/GI: soft, no organomegaly, no pulsatile mass, + tenderness (mild tenderness in the RUQ on deep palpation) Back: normal inspection Extremities/Musculoskelatal: normal inspection Neurologic/Psych: alert, normal mood/affect, oriented x 3 Skin: normal color, warm/dry, no rash (Roberta Welsh ., HOLDEN) Laboratory Results Last 24 Hours Test 02/06/17 22:30 02/06/17 22:35 02/07/17 07:36 02/07/17 07:52 White Blood Count 4.73 K/uL 4.55 K/uL Red Blood Count 3.92 M/uL 3.67 M/uL Hemoglobin 11.6 g/dL 10.7 g/dL Hematocrit 36.7 % 34.0 % Mean Corpuscular Volume 93.6 fL 92.6 fL Mean Corpuscular Hemoglobin 29.6 pg 29.2 pg Mean Corpuscular Hemoglobin Concent 31.6 g/dl 31.5 g/dl Platelet Count 54 K/uL 45 K/uL Mean Platelet Volume 9.7 fL 9.7 fL Neutrophils (%) (Auto) 65.9 % Lymphocytes (%) (Auto) 21.6 % Monocytes (%) (Auto) 11.0 % Eosinophils (%) (Auto) 0.4 % Basophils (%) (Auto) 0.0 % Neutrophils # (Auto) 3.12 K/uL Lymphocytes # (Auto) 1.02 K/uL Monocytes # (Auto) 0.52 K/uL Eosinophils # (Auto) 0.02 K/uL Basophils # (Auto) 0.00 K/uL RDW Standard Deviation 66.3 fL 66.8 fL RDW Coefficient of Variation 19.3 % 19.6 % Immature Granulocyte % (Auto) 1.1 % Immature Granulocyte # (Auto) 0.05 K/uL Erythrocyte Sedimentation Rate 22 mm/hr Prothrombin Time 10.3 SECONDS Prothromb Time International Ratio 1.0 Activated Partial Thromboplast Time 25.2 SECONDS Partial Thromboplastin Ratio 1.0 Sodium Level 136 mmol/L Potassium Level 4.0 mmol/L Chloride Level 96 mmol/L Carbon Dioxide Level 32 mmol/L Anion Gap 8.0 mmol/L Blood Urea Nitrogen 43 mg/dl Creatinine 6.80 mg/dl Est Creatinine Clear Calc Drug Dose 10.1 ml/min Estimated GFR () 8.8 Estimated GFR (Non- 7.6 BUN/Creatinine Ratio 6.5 Random Glucose 181 mg/dl Calcium Level 8.5 mg/dl Phosphorus Level 2.8 mg/dl Magnesium Level 2.4 mg/dl Total Bilirubin 1.1 mg/dl Aspartate Amino Transf (AST/SGOT) 26 U/L Alanine Aminotransferase (ALT/SGPT) 26 U/L Alkaline Phosphatase 89 U/L Total Creatine Kinase 46 U/L Creatine Kinase MB < 0.5 ng/ml Creatine Kinase MB Ratio Troponin I < 0.015 ng/ml C-Reactive Protein 4.96 mg/dl Pro-B-Type Natriuretic Peptide 3640 pg/ml Total Protein 7.0 gm/dl Albumin 3.5 gm/dl Globulin 3.5 gm/dl Albumin/Globulin Ratio 1.0 Lipase 122 U/L Bedside Lactic Acid Venous 1.84 mmol/L Bedside Glucose 134 mg/dl Random Vancomycin Level 27.1 mcg/ml Test 02/07/17 10:24 02/07/17 11:51 Erythrocyte Sedimentation Rate 7 mm/hr Sodium Level 133 mmol/L Potassium Level 4.1 mmol/L Chloride Level 96 mmol/L Carbon Dioxide Level 28 mmol/L Anion Gap 9.0 mmol/L Blood Urea Nitrogen 52 mg/dl Creatinine 7.60 mg/dl Est Creatinine Clear Calc Drug Dose 9.0 ml/min Estimated GFR () 7.7 Estimated GFR (Non- 6.6 BUN/Creatinine Ratio 7.0 Random Glucose 175 mg/dl Lactic Acid Level 1.8 mmol/L Calcium Level 8.3 mg/dl C-Reactive Protein 9.61 mg/dl Procalcitonin 2.94 ng/ml Bedside Glucose 156 mg/dl ABDOMEN AND PELVIS CT WITHOUT CONTRAST CT DOSE: 332.00 mGy.cm HISTORY: Fever and generalized abdominal pain. TECHNIQUE: Multiaxial CT images of the abdomen and pelvis were performed without contrast. A dose lowering technique was utilized adhering to the principles of ALARA. COMPARISON STUDY: Abdomen and pelvis CT 12/26/2015. FINDINGS: Postoperative changes consistent with prior double lung transplant with bibasilar linear densities suggestive of scarring and a few calcified granulomas. T12 mild superior endplate compression deformity. This is likely chronic. Small to moderate hiatus hernia, unchanged. Nodular contour to the liver consistent with cirrhosis. The spleen is mildly enlarged measuring 13.5 cm in length. No definite hepatic or splenic masses. The adrenal glands are unremarkable. Bilateral nephrolithiasis. No hydronephrosis. The bladder is decompressed. Tiny fat-containing left inguinal hernia. Colonic diverticulosis. There is minimal pericolonic fat stranding at the proximal to mid sigmoid colon. This suggests a developing acute diverticulitis. No evidence for bowel obstruction. Normal appendix. There is also mild fat stranding at the duodenum/benoit hepatis area there is thickening/edema at the gallbladder wall most pronounced along the hepatic surface. This measures up to 1 cm in thickness. This is new from the prior study. IMPRESSION: 1. Gallbladder wall thickening/edema. There is also mild fat stranding surrounding the second portion of the duodenum and extending into the benoit hepatis. These findings are nonspecific and could be due to acute cholecystitis, acute pancreatitis, or less likely a hepatitis. Correlation with right upper quadrant ultrasound and pancreatic enzymes are recommended for further evaluation. 2. Minimal pericolonic fat stranding at the proximal to mid sigmoid colon. This suggests a developing acute diverticulitis. 3. Bilateral nephrolithiasis. No hydronephrosis. 4. Cirrhosis with mild splenomegaly ULTRASOUND RIGHT UPPER QUADRANT ABDOMEN CLINICAL HISTORY: Right upper quadrant abdominal pain. Fever. COMPARISON STUDY: Abdominal CT dated 02/06/2017. TECHNIQUE: Real-time, grayscale, and color flow sonography of the right upper quadrant of the abdomen was performed. Images are reviewed in the transverse and longitudinal planes. FINDINGS: Liver: The liver is cirrhotic in morphology and heterogeneous in echotexture. There is nodularity of the hepatic surface contour. There is no intrahepatic biliary ductal dilatation. The main portal vein is patent. Gallbladder: There is nonspecific gallbladder wall thickening. The gallbladder wall measures up to 7 mm. No shadowing gallstones are identified. Trace pericholecystic fluid is questioned. A sonographic Choudhary's sign is reportedly absent. The common bile duct measures up to 0.7 cm in diameter. Pancreas: Visualized portions of the pancreatic head and body are normal in appearance. Right kidney: Survey images of the right kidney demonstrate mild cortical atrophy. There is no hydronephrosis. A 12 mm shadowing calculus is present in the right lower pole. Ascites: None. IMPRESSION: 1. The liver is cirrhotic in morphology and heterogeneous in echotexture. 2. There is nonspecific gallbladder wall thickening. No shadowing gallstones are identified and a sonographic Choudhary's sign is reportedly absent. This is nonspecific and may be related to cirrhosis. These findings are equivocal for acute cholecystitis which is not excluded. If there is strong clinical concern consider nuclear hepatobiliary scan for further assessment. 3. Nonobstructing right renal calculus. (Roberta Welsh ., PA-C) Assessment & Plan RUQ abdominal pain and fevers - vitals stable - no leukocytosis - No nausea or vomiting - pain vastly improved - CT scan showing gallbladder wall thickening, US showing nonspecific gallbladder wall thickening nor gallstones. - elevated total bilirubin at 1.1 Plan: Obtain HIDA scan to further evaluate as the CT scan and US are discordant. Patients pain has significantly improved since admission, tolerated breakfast this am Continue IV antibiotics Continue current medical management May have food after HIDA scan Dr. Barriga has seen and examined patient, agrees with above. (Roberta Welsh ., PA-C) 66-year-old male with generalized abdominal pain that is now essentially resolved. He has no tenderness. His multiple medical problems including being status post lung transplant. Ultrasound and CAT scan both ureteral thickening of the gallbladder wall. There is some mild edema there as well. There is also edema around the duodenum and the benoit hepatis. I would await the results of the HIDA scan prior to determining further therapy. If he needs surgical intervention transfer to [facility] were transplant was performed would probably be in order. He also has radiologic evidence of cirrhosis which would increase the morbidity and mortality of cholecystectomy. (Wesley Barriga M.D.)
[2017-02-07] MEDS ORDERED: LACTOBACILLUS ACIDOPHILUS (FLORANEX) TAB PO SCH (17:00)
--- NOTE | 2017-02-07 17:19 | Nephrology Consultation ---
Nephrology Consultation Date & Providers Date of Consultation: Feb 07, 2017. Primary Care Provider: Eugenio Lockwood M.D. Referring Provider: Reason for Consultation ESRD requiring HD History of Present Illness Mr. Diaz is a 66-year-old white male who is seen at the request of Dr. Guerrero to provide inpatient hemodialysis and assist with his medical management. Medical records in the EMR were reviewed and are summarized as follows: The patient has a complex medical history. 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 Following transplantation he developed ATN and failed to recover. He was diagnosed with ESRD and started on HD 06/20. The patient currently dialyzes MWF at [facility] dialysis unit (3 hr 30 min , 180NR dialyzer, 3K 2.5Ca dialysate, Qb 450, EDW 72 kg, L upper arm AVF created 02/19 at [facility]). The patient's medical history is also significant for steroid-induced diabetes mellitus, CMV, hypogammaglobulinemia, TRENT, depression, GERD, and atrial fibrillation. Over two days patient has been experiencing abdominal pain and low grade fever. He has been admitted to the medicine service and is currently undergoing evaluation for possible cholecystitis. 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 [facility] # L upper arm AVF created 02/19 at [facility] Allergies Coded Allergies: Cat Dander (Unverified Allergy, Mild, RASH, 02/06/17) Dog Dander (Unverified Allergy, Mild, RASH, 02/06/17) POLLEN (Unverified Allergy, Mild, RASHES, 02/06/17) Inpatient Medications Current Inpatient Medications Medications (Trade) Dose Ordered Sig/Beverley Route Start Time Stop Time Status Last Admin Dose Admin Albuterol (Ventolin Hfa Inhaler) 2 puffs Q6H PRN INH 02/07/17 01:15 03/09/17 01:14 Calcium Acetate (Phoslo Cap) 1,334 mg TIDM PO 02/07/17 08:00 03/09/17 07:59 8/3/17 07:47 1,334 MG Guaifenesin (Mucinex Contr Rel Tab) 600 mg AMHS PO 02/07/17 08:00 03/09/17 08:59 02/07/17 07:47 600 MG Insulin Glargine (Lantus Solostar Pen) 3 units HS SC 02/07/17 21:00 03/09/17 20:59 Levothyroxine Sodium (Synthroid Tab) 75 mcg DAILYBB PO 02/07/17 06:30 03/09/17 06:59 Ondansetron HCl (Zofran Tab) 4 mg Q6 PRN PO 02/07/17 01:15 03/09/17 01:14 Pantoprazole Sodium (Protonix Tab) 40 mg BID PO 02/07/17 08:00 03/09/17 08:59 02/07/17 07:47 40 MG Prednisone (PredniSONE TAB) 5 mg QAM PO 02/07/17 08:00 03/09/17 08:59 02/07/17 07:47 5 MG Sertraline HCl (Zoloft Tab) 150 mg HS PO 02/07/17 21:00 03/09/17 20:59 Tacrolimus (Prograf Cap) 3 mg BID PO 02/07/17 08:00 03/09/17 08:59 02/07/17 07:47 3 MG Tobramycin Sulfate (Nebcin Inj) 80 mg BIDR INH 02/07/17 10:00 03/09/17 09:59 02/07/17 11:16 80 MG Triamcinolone Acetonide (Kenalog 0.5% Crm) 1 appln BID EXT 02/07/17 08:00 03/09/17 08:59 02/07/17 07:48 1 APPLN Zolpidem Tartrate (Ambien Tab) 5 mg HS PRN PO 02/07/17 01:15 03/09/17 01:14 02/07/17 03:04 5 MG Miscellaneous Information (Order Awaiting Action) 1 ea QS N/A 02/07/17 02:15 03/09/17 02:14 Oxycodone HCl (Roxicodone Immediate Rel Tab) 5 mg Q4H PRN PO 02/07/17 01:45 02/21/17 01:44 Acetaminophen (Tylenol Tab) 650 mg Q4H PRN PO 02/07/17 01:15 03/09/17 01:14 02/07/17 07:46 650 MG Al Hydrox/Mg Hydrox/Simethicone (Maalox Max Susp) 15 ml Q4H PRN PO 02/07/17 01:15 03/09/17 01:14 Magnesium Hydroxide (Milk Of Magnesia Susp) 30 ml Q6H PRN PO 02/07/17 01:15 03/09/17 01:14 Polyethylene (Miralax Powder Packet) 17 gm DAILY PRN PO 02/07/17 01:45 03/09/17 01:44 Ondansetron HCl (Zofran Inj) 4 mg Q6H PRN IV 02/07/17 01:15 03/09/17 01:14 02/07/17 07:53 4 MG Piperacillin Sod/ Tazobactam Sod 3.375 gm/Dextrose 115 ml @ 28.75 mls/ hr Q12H IV 02/07/17 08:00 02/21/17 07:59 02/07/17 07:46 28.75 MLS/HR Vancomycin HCl (Consult) 1 ea UD PRN N/A 02/07/17 01:45 03/09/17 01:44 Levofloxacin (Consult) 1 ea UD PRN N/A 02/07/17 01:45 03/09/17 01:44 Piperacillin Sod/ Tazobactam Sod (Consult) 1 ea UD PRN N/A 02/07/17 01:45 03/09/17 01:44 Levofloxacin 500 mg/Prmx 100 ml @ 100 mls/hr Q48H IV 02/09/17 04:00 02/23/17 03:59 Albuterol Sulfate (Ventolin 0.083% 2.5MG/3ML Neb) 2.5 mg BIDR INH 02/07/17 10:00 03/09/17 09:59 02/07/17 11:16 2.5 MG Miscellaneous Information (Consult Glycemic Management Pharmacy) 1 ea UD PRN N/A 02/07/17 10:54 03/09/17 10:53 Sodium Chloride 1,000 ml @ 60 mls/hr [id number] IV 02/07/17 11:00 03/09/17 10:59 02/07/17 11:34 60 MLS/HR Insulin Aspart (novoLOG ASPART) SLIDING SCALE ACHS SC 02/07/17 12:00 03/09/17 11:59 02/07/17 12:43 1 UNITS Lactobacillus Acidophilus (Floranex Tab) 4 tab TIDM PO 02/07/17 17:00 03/09/17 16:59 Epoetin Iker (Procrit Inj) 8,000 units ONE ONCE IV. 02/08/17 06:00 02/08/17 06:01 UNV Heparin Sodium (Porcine) (No Heparin In Dialysis) 1 ea ONE ONCE N/A 02/08/17 06:00 02/08/17 06:01 UNV Family History FHx: heart disease Hypertension Negative for CKD / ESRD Social History Smoking Status: Never Smoker Drug Use: none Marital Status: Occupation: retired . Retired. Never smoked. Review of Systems Constitutional: + fever Respiratory: No cough Cardiovascular: No chest pain Abdomen: + pain, No nausea, No vomiting, No diarrhea A complete review of systems was performed. Pertinent positives are noted above. All other systems are negative. Physical Exam Date Time Temp Pulse Resp B/P (MAP) Pulse Ox O2 Delivery O2 Flow Rate FiO2 02/07/17 16:00 Room Air 02/07/17 15:53 37.3 84 18 89/51 (64) 92 Room Air 02/07/17 11:16 78 16 97 Room Air 02/07/17 09:29 37.3 02/07/17 08:00 Room Air 02/07/17 07:39 95 16 90 Room Air 02/07/17 07:31 38.1 92 18 93/48 (63) 90 Room Air 02/07/17 04:12 37.6 87 19 111/69 95 Room Air 02/07/17 02:22 37.1 90 18 95/53 92 02/07/17 01:06 96 02/07/17 00:40 37.2 103 18 101/65 91 Room Air 02/06/17 23:40 37.8 107 18 104/61 92 Room Air 02/06/17 22:08 92 Room Air 02/06/17 22:08 37.6 94 18 117/55 92 Room Air 02/06/17 21:07 95 02/06/17 20:47 37.8 95 16 127/71 97 General Appearance: + mild distress Head: normocephalic, atraumatic Eyes: PERRL Neck: no adenopathy Respiratory/Chest: lungs clear Cardiovascular: regular rate, rhythm Abdomen/GI: non tender, soft Extremities/Musculoskelatal: no pedal edema Neurologic/Psych: alert, oriented x 3 Laboratory Results Last 24 Hours Test 02/06/17 22:30 02/06/17 22:35 02/07/17 07:36 02/07/17 07:52 White Blood Count 4.73 K/uL 4.55 K/uL Red Blood Count 3.92 M/uL 3.67 M/uL Hemoglobin 11.6 g/dL 10.7 g/dL Hematocrit 36.7 % 34.0 % Mean Corpuscular Volume 93.6 fL 92.6 fL Mean Corpuscular Hemoglobin 29.6 pg 29.2 pg Mean Corpuscular Hemoglobin Concent 31.6 g/dl 31.5 g/dl Platelet Count 54 K/uL 45 K/uL Mean Platelet Volume 9.7 fL 9.7 fL Neutrophils (%) (Auto) 65.9 % Lymphocytes (%) (Auto) 21.6 % Monocytes (%) (Auto) 11.0 % Eosinophils (%) (Auto) 0.4 % Basophils (%) (Auto) 0.0 % Neutrophils # (Auto) 3.12 K/uL Lymphocytes # (Auto) 1.02 K/uL Monocytes # (Auto) 0.52 K/uL Eosinophils # (Auto) 0.02 K/uL Basophils # (Auto) 0.00 K/uL RDW Standard Deviation 66.3 fL 66.8 fL RDW Coefficient of Variation 19.3 % 19.6 % Immature Granulocyte % (Auto) 1.1 % Immature Granulocyte # (Auto) 0.05 K/uL Erythrocyte Sedimentation Rate 22 mm/hr Prothrombin Time 10.3 SECONDS Prothromb Time International Ratio 1.0 Activated Partial Thromboplast Time 25.2 SECONDS Partial Thromboplastin Ratio 1.0 Sodium Level 136 mmol/L Potassium Level 4.0 mmol/L Chloride Level 96 mmol/L Carbon Dioxide Level 32 mmol/L Anion Gap 8.0 mmol/L Blood Urea Nitrogen 43 mg/dl Creatinine 6.80 mg/dl Est Creatinine Clear Calc Drug Dose 10.1 ml/min Estimated GFR () 8.8 Estimated GFR (Non- 7.6 BUN/Creatinine Ratio 6.5 Random Glucose 181 mg/dl Calcium Level 8.5 mg/dl Phosphorus Level 2.8 mg/dl Magnesium Level 2.4 mg/dl Total Bilirubin 1.1 mg/dl Aspartate Amino Transf (AST/SGOT) 26 U/L Alanine Aminotransferase (ALT/SGPT) 26 U/L Alkaline Phosphatase 89 U/L Total Creatine Kinase 46 U/L Creatine Kinase MB < 0.5 ng/ml Creatine Kinase MB Ratio Troponin I < 0.015 ng/ml C-Reactive Protein 4.96 mg/dl Pro-B-Type Natriuretic Peptide 3640 pg/ml Total Protein 7.0 gm/dl Albumin 3.5 gm/dl Globulin 3.5 gm/dl Albumin/Globulin Ratio 1.0 Lipase 122 U/L Bedside Lactic Acid Venous 1.84 mmol/L Bedside Glucose 134 mg/dl Random Vancomycin Level 27.1 mcg/ml Test 02/07/17 10:24 02/07/17 11:51 02/07/17 16:33 Erythrocyte Sedimentation Rate 7 mm/hr Sodium Level 133 mmol/L Potassium Level 4.1 mmol/L Chloride Level 96 mmol/L Carbon Dioxide Level 28 mmol/L Anion Gap 9.0 mmol/L Blood Urea Nitrogen 52 mg/dl Creatinine 7.60 mg/dl Est Creatinine Clear Calc Drug Dose 9.0 ml/min Estimated GFR () 7.7 Estimated GFR (Non- 6.6 BUN/Creatinine Ratio 7.0 Random Glucose 175 mg/dl Lactic Acid Level 1.8 mmol/L Calcium Level 8.3 mg/dl C-Reactive Protein 9.61 mg/dl Procalcitonin 2.94 ng/ml Bedside Glucose 156 mg/dl 134 mg/dl Impression (1) Pulmonary fibrosis (2) S/P lung transplant (3) Fever (4) Left lower lobe pneumonia (5) End-stage renal disease on hemodialysis (6) Anemia Immunocompromised patient w/ double lung transplant who presents with febrile illness and abdominal discomfort. CXR w/ LLL infiltrate. Abdominal CT show thickening of gall bladder wall. HIDA scan has been ordered. Patient has been placed on broad spectrum antibiotics and ID has been consulted. Mr. Diaz has ESRD and requires MWF HD. Recommendations END STAGE RENAL DISEASE: -- Volume status and electrolyte balance remain acceptable at this time -- Will schedule HD for am. HD orders placed in EMR and HD RN notified ANEMIA: -- Will provide ERIKA w/ dialysis treatments ID: -- Broad spectrum antibiotics as per ID -- Await results of HIDA scan -- Patient has relative hypotension. Agree w/ gentle hydration. Consider increasing steroid therapy during acute illness
--- NOTE | 2017-02-07 18:16 | DIAGNOSTIC IMAGING REPORT ---
NUCLEAR MEDICINE HEPATOBILIARY SCAN CLINICAL HISTORY: Right upper quadrant abdominal pain. Elevated total bilirubin. COMPARISON STUDY: Biliary ultrasound dated 02/07/2017 FINDINGS: The patient was injected with 5.4 mCi of technetium 99m Choletec. Sequential anterior imaging was performed. Hepatic excretion appeared unremarkable. The gallbladder was first visualized at 20 minute image. There is normal passage of activity into small bowel. IMPRESSION: 1. Normal study. No evidence of cystic duct obstruction. Electronically signed by: Julius Morgan M.D. 02/07/2017 6:15 PM Dictated Date/Time: 02/07/2017 6:13 PM
[2017-02-07] MEDS ORDERED: INSULIN GLARGINE SOLOSTAR 100 UNITS/ML 3 ML PEN SC SCH (21:00)
[2017-02-07] MEDS: SERTRALINE HCL 50 MG TAB PO SCH (21:21)
[2017-02-08] VITALS (24 sets, daily range): BP systolic 86–115; BP diastolic 50–69; PULSE 69–88; TEMP 36.5–37.6; O2SAT 90–99
[2017-02-08] MEDS: SODIUM CHLORIDE 0.9% 1000ML 1,000 ML IV SCH (03:39)
[2017-02-08] MEDS ORDERED: EPOETIN ALFA 10,000 UNITS/ML VIAL IV. ONE (06:00)
[2017-02-08] MEDS ORDERED: EPOETIN ALFA INJ 8,000 UNITS in SYRINGE 0 ML IV. SCH (06:00)
[2017-02-08] MEDS: LEVOTHYROXINE 75 MCG TAB PO SCH (06:23)
[2017-02-08] MEDS: CALCIUM ACETATE 667MG GELCAP PO SCH ×3 (07:54→17:00)
[2017-02-08] MEDS: PANTOprazole SOD 40 MG TAB PO SCH ×2 (07:55→20:37)
[2017-02-08] MEDS: GUAIFENESIN 600 MG TABCR PO SCH ×2 (07:56→20:36)
[2017-02-08] MEDS: TACROLIMUS 1 MG CAP PO SCH ×2 (07:56→20:37)
[2017-02-08] MEDS: PIPERACILL/TAZOBAC IV 3.375 GM in DEXTROSE 5% 100ML 100 ML IV SCH (07:58)
[2017-02-08] MEDS: TRIAMCINOLONE ACET 0.5% CR 15 GM TUBE EXT SCH ×2 (07:59→20:38)
[2017-02-08] MEDS: TOBRAMYCIN SULF 40 MG/ML 2 ML VIAL INH SCH (08:00)
[2017-02-08 08:16] LABS: MEAN CELL VOLUME 91.2 fL (80-100); MEAN CORPUSCULAR HEMOGLOBIN 30.5 pg (25-34); MEAN CORPUSCULAR HGB CONC 33.4 g/dl (32-36); RED BLOOD COUNT 3.51 M/uL (4.7-6.1); WHITE BLOOD COUNT 4.39 K/uL (4.8-10.8)
[2017-02-08 08:41] LABS: MEAN PLATELET VOLUME 9.5 fL (7.4-10.4); PLATELET COUNT 46 K/uL (130-400); PLT ESTIMATE DECREASED
[2017-02-08] MEDS: INSULIN ASPART 100 UNITS/ML 3 ML PEN SC SCH ×4 (08:57→20:41)
[2017-02-08 09:08] LABS: BUN/CREATININE RATIO 6.5 (10-20); CALCIUM 8.5 mg/dl (8.5-10.1); CREATININE 9.4 mg/dl (0.60-1.40)
--- NOTE | 2017-02-08 09:26 | DIAGNOSTIC IMAGING REPORT ---
CHEST 2 VIEWS ROUTINE CLINICAL HISTORY: follow up possible pnea pneumonitis COMPARISON STUDY: 02/06/2017 FINDINGS: Improved exam. Improved infiltrative change left base and to lesser extent right midlung. Postoperative change bilaterally stable. Small hiatal hernia. IMPRESSION: Improving basilar infiltrative change. Mild residual. The above report was generated using voice recognition software. It may contain grammatical, syntax or spelling errors. Electronically signed by: Wesley Baker M.D. 02/08/2017 9:25 AM Dictated Date/Time: 02/08/2017 9:24 AM
--- NOTE | 2017-02-08 09:34 | Pharmacy Progress Note ---
Glycemic Control Progress Note Date of Service Feb 08, 2017. Scope Glycemic Pharmacist consulted for glycemic control to write orders per [facility] inpatient glycemic control protocol. Objective Accuchecks BSG (last 24hrs): Test 02/07/17 10:24 02/07/17 11:51 02/07/17 16:33 02/07/17 19:56 Random Glucose 175 mg/dl (70-99) Bedside Glucose 156 mg/dl (70-99) 134 mg/dl (70-99) 168 mg/dl (70-99) Test 02/08/17 07:57 02/08/17 07:59 Random Glucose 127 mg/dl (70-99) Bedside Glucose 127 mg/dl (70-99) Recent Pertinent Medications Outpatient Anti-diabetic Regimen: Confirmed with most recent endo note (from ) * Lantus 3 units qHS * Novolog per sliding scale (1-2 units before lunch and supper, hold if BSG < 100) * Patient holds on dialysis days * A1c = 4.9%, however this is unreliable in ESRD patient The patient is currently receiving: * Basal insulin: Lantus 3 units every 24 hours * Bolus insulin: Novolog ACHS Goal 110-150 CF 30 CR 15 Risk Factors for Insulin Resistance: * Steroids: outpatient med of prednisone 5 mg daily just increased to 10 mg daily starting today * Diet: type 2 diabetes * Infection: on Levaquin and Zosyn for possible pneumonia Assessment & Plan ASSESSMENT: 02/07/17 * 66 y/o male with history of bilateral lung transplant and ESRD, admitted with fevers * Patient requires very little insulin as an outpatient, utilizing only 3 units of Lantus * The A1c is unreliable; however, BSG data from his last admission indicate that he was controlled on the current dose of Lantus and ~3-4 units of Novolog each day. * Will plan to initiate a conservative regimen of short-acting Novolog. Will base this off of patient's weight and stress level of ~2. * ADA & AACE recommend a goal blood sugar range 140-180 mg/dl for the majority of critically ill & non-critically ill patients. However, more stringent targets may be selected in individual cases. Will utilize more stringent goal of 110-150mg/dl based on patient age & comorbidities. Additionally, tighter glycemic control is warranted to facilitate wound/infection healing. 02/08/17 * Mr. Diaz received 11 units of insulin yesterday with BSGs ranging from 127 -168 in the past 24 hours * I was able to confirm his outpatient regimen from the most recent endo note and he takes 1-2 units of Novolog with lunch and dinner * Will plan to continue with a carb ratio as this appeared to work well; the only caveat is that his long-term prednisone dose was just doubled. Not sure what kind of effects this will have on his requirements but will tighten the CR for now and provide a sliding scale for the Lantus dose tonight in case his BSGs increase significantly PLAN FOR INPATIENT GLYCEMIC CONTROL: * Continue Lantus 3 units qHS (increase to 5 units if BSG > 200 tonight) * Correctional Insulin with NOVOLOG per scale ACHS or Q6hrs while NPO * Goal Range: Low 110 mg/dL - High 150 mg/dL * Correction Factor: 30 mg/dL/unit * Carb ratio: TIGHTEN to 1 unit per 10 gm CHO consumed DISCHARGE RECOMMENDATIONS: * Okay to resume outpatient regimen if patient to be discharged on normal prednisone dose * If patient to be discharged on increased prednisone dose, will need more insulin - can hopefully determine a finalized regimen once we see effects from today Thank you.
--- NOTE | 2017-02-08 09:38 | Nephrology Progress Note ---
Nephrology Progress Note Date of Service Feb 08, 2017. Chief Complaint ESRD requiring HD Subjective Mr. Diaz was seen & examined in preparation for HD this morning. He was febrile overnight but reports that his cough is no longer productive. His abdominal discomfort is subjectively improved. Mr. Diaz voices no new medical concerns at this time. Review of Systems Constitutional: No fever Cardiovascular: No chest pain Respiratory: No dyspnea at rest Abdomen: No pain, No nausea, No vomiting Extremities: No leg edema A complete review of systems was performed. Pertinent positives are noted above. All other systems are negative. Vital Signs Last 8 Hrs Date Time Temp Pulse Resp B/P (MAP) Pulse Ox O2 Delivery O2 Flow Rate FiO2 02/08/17 07:45 37.6 81 20 115/69 (84) 99 Room Air Last Recorded Weight Weight (Kilograms): 74.200 Physical Exam General Appearance: no apparent distress Head: normocephalic, atraumatic Eyes: PERRL, EOMI Neck: no adenopathy Respiratory/Chest: lungs clear Cardiovascular: regular rate, rhythm Abdomen/GI: normal bowel sounds, non tender, soft Extremities/Musculoskelatal: no calf tenderness, no pedal edema Neurologic/Psych: alert, oriented x 3 Family History FHx: heart disease Hypertension Negative for CKD / ESRD Social History Smoking Status: Unknown if ever smoked Drug Use: none Marital Status: Occupation: retired . Retired. Never smoked. Laboratory Results Past 24 Hours 02/08/17 07:57 02/07/17 10:24 02/08/17 07:57 Test 02/07/17 10:24 02/07/17 11:51 02/07/17 16:33 02/07/17 19:56 Erythrocyte Sedimentation Rate 7 mm/hr (0-14) Anion Gap 9.0 mmol/L (3-11) Est Creatinine Clear Calc Drug Dose 9.0 ml/min Estimated GFR () 7.7 Estimated GFR (Non- 6.6 BUN/Creatinine Ratio 7.0 (10-20) Lactic Acid Level 1.8 mmol/L (0.4-2.0) Calcium Level 8.3 mg/dl (8.5-10.1) C-Reactive Protein 9.61 mg/dl (0-0.29) Procalcitonin 2.94 ng/ml (0-0.5) Bedside Glucose 156 mg/dl (70-99) 134 mg/dl (70-99) 168 mg/dl (70-99) Test 02/08/17 00:45 02/08/17 07:57 02/08/17 07:59 Red Blood Count 3.51 M/uL (4.7-6.1) Mean Corpuscular Volume 91.2 fL (80-100) Mean Corpuscular Hemoglobin 30.5 pg (25-34) Mean Corpuscular Hemoglobin Concent 33.4 g/dl (32-36) RDW Standard Deviation 64.6 fL (36.4-46.3) RDW Coefficient of Variation 19.5 % (11.5-14.5) Mean Platelet Volume 9.5 fL (7.4-10.4) Platelet Estimate DECREASED Anion Gap 15.0 mmol/L (3-11) Est Creatinine Clear Calc Drug Dose 7.3 ml/min Estimated GFR () 5.9 Estimated GFR (Non- 5.1 BUN/Creatinine Ratio 6.5 (10-20) Calcium Level 8.5 mg/dl (8.5-10.1) Random Vancomycin Level 20.5 mcg/ml Bedside Glucose 127 mg/dl (70-99) Allergies Coded Allergies: Cat Dander (Unverified Allergy, Mild, RASH, 02/06/17) Dog Dander (Unverified Allergy, Mild, RASH, 02/06/17) POLLEN (Unverified Allergy, Mild, RASHES, 02/06/17) Medications Current Inpatient Medications Medications (Trade) Dose Ordered Sig/Beverley Route Start Time Stop Time Status Last Admin Dose Admin Albuterol (Ventolin Hfa Inhaler) 2 puffs Q6H PRN INH 02/07/17 01:15 03/09/17 01:14 Calcium Acetate (Phoslo Cap) 1,334 mg TIDM PO 02/07/17 08:00 03/09/17 07:59 02/08/17 07:54 1,334 MG Guaifenesin (Mucinex Contr Rel Tab) 600 mg AMHS PO 02/07/17 08:00 03/09/17 08:59 02/08/17 07:56 600 MG Insulin Glargine (Lantus Solostar Pen) 3 units HS SC 02/07/17 21:00 03/09/17 20:59 02/07/17 21:35 3 UNITS Levothyroxine Sodium (Synthroid Tab) 75 mcg DAILYBB PO 02/07/17 06:30 03/09/17 06:59 02/08/17 06:23 75 MCG Ondansetron HCl (Zofran Tab) 4 mg Q6 PRN PO 02/07/17 01:15 03/09/17 01:14 Pantoprazole Sodium (Protonix Tab) 40 mg BID PO 02/07/17 08:00 03/09/17 08:59 02/08/17 07:55 40 MG Sertraline HCl (Zoloft Tab) 150 mg HS PO 02/07/17 21:00 03/09/17 20:59 02/07/17 21:21 150 MG Tacrolimus (Prograf Cap) 3 mg BID PO 02/07/17 08:00 03/09/17 08:59 02/08/17 07:56 3 MG Tobramycin Sulfate (Nebcin Inj) 80 mg BIDR INH 02/07/17 10:00 03/09/17 09:59 02/07/17 19:38 80 MG Triamcinolone Acetonide (Kenalog 0.5% Crm) 1 appln BID EXT 02/07/17 08:00 03/09/17 08:59 02/08/17 07:59 1 APPLN Zolpidem Tartrate (Ambien Tab) 5 mg HS PRN PO 02/07/17 01:15 03/09/17 01:14 02/07/17 03:04 5 MG Miscellaneous Information (Order Awaiting Action) 1 ea QS N/A 02/07/17 02:15 03/09/17 02:14 Oxycodone HCl (Roxicodone Immediate Rel Tab) 5 mg Q4H PRN PO 02/07/17 01:45 02/21/17 01:44 Acetaminophen (Tylenol Tab) 650 mg Q4H PRN PO 02/07/17 01:15 03/09/17 01:14 02/07/17 07:46 650 MG Al Hydrox/Mg Hydrox/Simethicone (Maalox Max Susp) 15 ml Q4H PRN PO 02/07/17 01:15 03/09/17 01:14 Magnesium Hydroxide (Milk Of Magnesia Susp) 30 ml Q6H PRN PO 02/07/17 01:15 03/09/17 01:14 Polyethylene (Miralax Powder Packet) 17 gm DAILY PRN PO 02/07/17 01:45 03/09/17 01:44 Ondansetron HCl (Zofran Inj) 4 mg Q6H PRN IV 02/07/17 01:15 03/09/17 01:14 02/07/17 07:53 4 MG Piperacillin Sod/ Tazobactam Sod 3.375 gm/Dextrose 115 ml @ 28.75 mls/ hr Q12H IV 02/07/17 08:00 02/21/17 07:59 02/07/17 21:29 28.75 MLS/HR Vancomycin HCl (Consult) 1 ea UD PRN N/A 02/07/17 01:45 03/09/17 01:44 Levofloxacin (Consult) 1 ea UD PRN N/A 02/07/17 01:45 03/09/17 01:44 Piperacillin Sod/ Tazobactam Sod (Consult) 1 ea UD PRN N/A 02/07/17 01:45 03/09/17 01:44 Levofloxacin 500 mg/Prmx 100 ml @ 100 mls/hr Q48H IV 02/09/17 04:00 02/23/17 03:59 Albuterol Sulfate (Ventolin 0.083% 2.5MG/3ML Neb) 2.5 mg BIDR INH 02/07/17 10:00 03/09/17 09:59 02/07/17 19:16 2.5 MG Miscellaneous Information (Consult Glycemic Management Pharmacy) 1 ea UD PRN N/A 02/07/17 10:54 03/09/17 10:53 Sodium Chloride 1,000 ml @ 60 mls/hr [id number] IV 02/07/17 11:00 03/09/17 10:59 02/08/17 03:39 60 MLS/HR Insulin Aspart (novoLOG ASPART) SLIDING SCALE ACHS SC 02/07/17 12:00 03/09/17 11:59 02/08/17 08:57 9 UNITS Lactobacillus Acidophilus (Floranex Tab) 4 tab TIDM PO 02/07/17 17:00 03/09/17 16:59 Future Hold Epoetin Iker 8000 units/Syringe 0.4 ml @ 1 mls/min TODAY@0600 IV. 02/08/17 06:00 02/08/17 18:00 Prednisone (PredniSONE TAB) 10 mg QAM PO 02/08/17 08:00 03/09/17 08:59 02/08/17 08:03 10 MG Impression (1) Pulmonary fibrosis (2) S/P lung transplant (3) Fever (4) Left lower lobe pneumonia (5) End-stage renal disease on hemodialysis (6) Anemia Immunocompromised patient w/ double lung transplant who presents with febrile illness and abdominal discomfort. CXR w/ LLL infiltrate. Abdominal CT show thickening of gall bladder wall. HIDA scan has been ordered. Patient has been placed on broad spectrum antibiotics and ID has been consulted. Mr. Diaz has ESRD and requires MWF HD. Recommendations END STAGE RENAL DISEASE: -- Will provide HD this am. Orders entered into EMR and HD RN notified ANEMIA: -- Will provide ERIKA w/ dialysis treatments ID: -- Blood cultures x 2 were negative -- Broad spectrum antibiotics as per ID -- Await results of follow up PA & lat CXT -- HIDA scan report reviewed: no obstruction -- Patient has relative hypotension. Agree w/ gentle hydration and increasing Prednisone therapy during acute illness.
--- NOTE | 2017-02-08 09:53 | Surgery Progress Note ---
Surgery Progress Note Date of Service Feb 08, 2017. Subjective + feeling well, No complaints Patient examined at bedside this morning. Afebrile, vitals stable overnight on room air, no acute events overnight. Sitting up comfortably on edge of bed this morning, just finished breakfast. Denies abdominal pain. Tolerating regular diet without N/V. Ambulating and voiding without difficulty. No complaints. HIDA scan yesterday was negative. Objective Vital Signs: Date Time Temp Pulse Resp B/P (MAP) Pulse Ox O2 Delivery O2 Flow Rate FiO2 02/08/17 07:45 37.6 81 20 115/69 (84) 99 Room Air 02/08/17 00:15 96 Room Air 02/07/17 23:43 37.7 86 18 88/48 (61) 95 Room Air 02/07/17 19:16 88 16 96 Room Air 02/07/17 16:00 Room Air 02/07/17 15:53 37.3 84 18 89/51 (64) 92 Room Air 02/07/17 11:16 78 16 97 Room Air General Appearance: WD/WN, no apparent distress Head: normocephalic, atraumatic Neck: supple Respiratory/Chest: lungs clear, normal breath sounds Cardiovascular: regular rate, rhythm Abdomen: non tender, non distended, soft Laboratory Results: Results Past 24 Hours Test 02/07/17 10:24 02/07/17 11:51 02/07/17 16:33 02/07/17 19:56 Range/Units Erythrocyte Sedimentation Rate 7 0-14 mm/hr Sodium Level 133 136-145 mmol/L Potassium Level 4.1 3.5-5.1 mmol/L Chloride Level 96 98-107 mmol/L Carbon Dioxide Level 28 21-32 mmol/L Anion Gap 9.0 3-11 mmol/L Blood Urea Nitrogen 52 7-18 mg/dl Creatinine 7.60 0.60-1.40 mg/dl Est Creatinine Clear Calc Drug Dose 9.0 ml/min Estimated GFR () 7.7 Estimated GFR (Non- 6.6 BUN/Creatinine Ratio 7.0 10-20 Random Glucose 175 70-99 mg/dl Lactic Acid Level 1.8 0.4-2.0 mmol/L Calcium Level 8.3 8.5-10.1 mg/dl C-Reactive Protein 9.61 0-0.29 mg/dl Procalcitonin 2.94 0-0.5 ng/ml Bedside Glucose 156 134 168 70-99 mg/dl Test 02/08/17 00:45 02/08/17 07:57 02/08/17 07:59 Range/Units White Blood Count 4.39 4.8-10.8 K/uL Red Blood Count 3.51 4.7-6.1 M/uL Hemoglobin 10.7 14.0-18.0 g/dL Hematocrit 32.0 42-52 % Mean Corpuscular Volume 91.2 80-100 fL Mean Corpuscular Hemoglobin 30.5 25-34 pg Mean Corpuscular Hemoglobin Concent 33.4 32-36 g/dl RDW Standard Deviation 64.6 36.4-46.3 fL RDW Coefficient of Variation 19.5 11.5-14.5 % Platelet Count 46 130-400 K/uL Mean Platelet Volume 9.5 7.4-10.4 fL Platelet Estimate DECREASED Sodium Level 134 136-145 mmol/L Potassium Level 4.0 3.5-5.1 mmol/L Chloride Level 95 98-107 mmol/L Carbon Dioxide Level 24 21-32 mmol/L Anion Gap 15.0 3-11 mmol/L Blood Urea Nitrogen 61 7-18 mg/dl Creatinine 9.40 0.60-1.40 mg/dl Est Creatinine Clear Calc Drug Dose 7.3 ml/min Estimated GFR () 5.9 Estimated GFR (Non- 5.1 BUN/Creatinine Ratio 6.5 10-20 Random Glucose 127 70-99 mg/dl Calcium Level 8.5 8.5-10.1 mg/dl Random Vancomycin Level 20.5 mcg/ml Bedside Glucose 127 70-99 mg/dl 02/07/17 HIDA Scan: FINDINGS: The patient was injected with 5.4 mCi of technetium 99m Choletec. Sequential anterior imaging was performed. Hepatic excretion appeared unremarkable. The gallbladder was first visualized at 20 minute image. There is normal passage of activity into small bowel. IMPRESSION: 1. Normal study. No evidence of cystic duct obstruction. Assessment & Plan Assessment & Plan Todd Diaz is a 66 year old man with multiple medical comorbidities including hx of bilateral lung transplant on whom we were consulted for RUQ abdominal pain and fevers. He remains afebrile, vitals stable and normal. Denies abdominal pain today. Tolerating regular diet without N/V. HIDA scan was negative for gallbladder abnormalities. He has no leukocytosis and LFTs were within normal limits. Plan: No acute surgical intervention indicated at this time Patients pain has significantly improved since admission, tolerated breakfast this am Continue IV antibiotics Continue current medical management General Surgery will sign off. Please call with any further concerns or questions.
--- NOTE | 2017-02-08 10:17 | Pharmacy Progress Note ---
Pharmacy Abx Dose Progress Nt Date of Service Feb 08, 2017. Pharmacy Dosing Scope The patient is currently receiving the following antimicrobial agents per Pharmacy consult: vancomycin dosed upon levels Zosyn 3.375 GM IV q12 hours Levaquin 750 mg IV x 1 then 500 mg IV q48 hours Objective Height (Feet): 5 Height (Inches): 8.00 Weight (Kilograms): 74.200 Vital Signs (Past 12Hrs) Vital Signs Past 12 Hours Date Time Temp Pulse Resp B/P (MAP) Pulse Ox O2 Delivery O2 Flow Rate FiO2 02/08/17 08:30 99 Room Air 02/08/17 07:45 37.6 81 20 115/69 (84) 99 Room Air 02/08/17 00:15 96 Room Air 02/07/17 23:43 37.7 86 18 88/48 (61) 95 Room Air Lab Results (24Hrs) Laboratory Tests (24 Hours) Test 02/07/17 10:24 02/08/17 07:57 C-Reactive Protein 9.61 mg/dl (0-0.29) H Erythrocyte Sedimentation Rate 7 mm/hr (0-14) Lactic Acid Level 1.8 mmol/L (0.4-2.0) Procalcitonin 2.94 ng/ml (0-0.5) H White Blood Count 4.39 K/uL (4.8-10.8) L Micro Results Date/Time Source Procedure Growth Status 02/06/17 22:35 Blood Blood Culture - Preliminary NO GROWTH TO DATE. Resulted 02/06/17 22:20 Blood Blood Culture - Preliminary NO GROWTH TO DATE. Resulted Risk Factors for Resistance * Chronic dialysis within the past 30 days * Immunocompromised (immunomodulators for lung transplant in 2013) Assessment & Plan Assessment 66 year old male receiving vancomycin/Zosyn/Levaquin for treatment of possible pneumonia with immunosuppression. Patient remains febrile throughout the night with a maximum temperature of 38.1 Celsius. Current source of infection is unknown. There is no white count but patient is immunosuppressed. He is scheduled for dialysis today. Day # 3 of antimicrobial therapy Plan Vancomycin IV * Random of 20.5 mcg/mL is therapeutic * Give vancomycin 500 mg IV x 1 tonight after dialysis * Goal trough level for empiric dosing : 15 to 20 mcg/mL * Random level ordered for: 02/10/17 - patient will be scheduled for dialysis on Saturday but I am concerned he may possibly be excreting vancomycin independent of dialysis * Less than traditional dose selected due to likelihood of drug accumulation in CKD. Piperacillin/tazobactam * Continue 3.375 g IV extended infusion every 12 hours for hemodialysis patients Levaquin * Continue 750 mg IV x 1 then 500 mg IV q48 hours for individuals receiving hemodialysis Pharmacy will continue to follow and will adjust dose/frequency as necessary. Thank you.
--- NOTE | 2017-02-08 10:50 | Hospitalist Progress Note ---
Hospitalist Progress Note Date of Service Feb 08, 2017. Subjective Pt evaluation today including: conversation w/ patient, conversation w/ family (updated on phone), physical exam, chart review, lab review, review of studies, conversation w/ home energy consultant (spoke with Dr. Wright. Called [facility] transplant team), review of inpatient medication list Pain: None PO Intake: Tolerating PO diet Voiding: no voiding problems Patient reports feeling well. He denies any fevers, chills or sweats overnight. He states that his pain has completely resolved. He is tolerating a PO diet well without any pain, nausea or vomiting. He still has a productive cough with yellow sputum but states that he is producing less sputum compared to yesterday. The patient denies fevers, chills, sweats, chest pain, palpitations, claudication, wheezing, shortness of breath, nausea, vomiting, abdominal pain, dysuria, hematuria, urinary retention, paralysis, weakness, numbness and tingling. Additional Comments: See HPI for pertinent positives and negatives. All other systems reviewed and negative. Objective Vital Signs Date Time Temp Pulse Resp B/P (MAP) Pulse Ox O2 Delivery O2 Flow Rate FiO2 02/08/17 09:32 37.4 88 102/56 (71) 02/08/17 08:30 99 Room Air 02/08/17 07:45 37.6 81 20 115/69 (84) 99 Room Air 02/08/17 00:15 96 Room Air 02/07/17 23:43 37.7 86 18 88/48 (61) 95 Room Air 02/07/17 19:16 88 16 96 Room Air 02/07/17 16:00 Room Air 02/07/17 15:53 37.3 84 18 89/51 (64) 92 Room Air 02/07/17 11:16 78 16 97 Room Air Physical Exam Notes: General appearance: Well-developed, well-nourished, no apparent distress Head: Normocephalic, atraumatic Eyes: Normal inspection, PERRL, EOMI ENT: Normal ENT inspection, hearing grossly normal, pharynx normal Neck: Supple, no JVD, trachea midline Respiratory/Chest: +Slightly decreased breath sounds left base. Lungs clear to auscultation, normal breath sounds, no respiratory distress Cardiovascular: +Systolic murmur. Regular rate & rhythm, no gallop Abdomen/GI: Normal bowel sounds, non-tender, soft Extremities/Musculoskeletal: Normal inspection, no calf tenderness, no pedal edema Neurological/Psych: Alert, normal mood/affect, oriented x 3 Skin: Normal color, warm/dry, no rash Laboratory Results Last 24 Hours Test 02/07/17 11:51 02/07/17 16:33 02/07/17 19:56 02/08/17 00:45 Bedside Glucose 156 mg/dl 134 mg/dl 168 mg/dl Test 02/08/17 07:57 02/08/17 07:59 White Blood Count 4.39 K/uL Red Blood Count 3.51 M/uL Hemoglobin 10.7 g/dL Hematocrit 32.0 % Mean Corpuscular Volume 91.2 fL Mean Corpuscular Hemoglobin 30.5 pg Mean Corpuscular Hemoglobin Concent 33.4 g/dl RDW Standard Deviation 64.6 fL RDW Coefficient of Variation 19.5 % Platelet Count 46 K/uL Mean Platelet Volume 9.5 fL Platelet Estimate DECREASED Sodium Level 134 mmol/L Potassium Level 4.0 mmol/L Chloride Level 95 mmol/L Carbon Dioxide Level 24 mmol/L Anion Gap 15.0 mmol/L Blood Urea Nitrogen 61 mg/dl Creatinine 9.40 mg/dl Est Creatinine Clear Calc Drug Dose 7.3 ml/min Estimated GFR () 5.9 Estimated GFR (Non- 5.1 BUN/Creatinine Ratio 6.5 Random Glucose 127 mg/dl Calcium Level 8.5 mg/dl Random Vancomycin Level 20.5 mcg/ml Bedside Glucose 127 mg/dl Diagnostic Results Reviewed the following studies and agree with interpretation as follows: Patient Name: GIORGIIRON Francis JR Unit Number: [id number] Dictated: 02/07/171812 Transcribed: 02/07/171812 ARG Printed Date/Time: [~ rep prt dt]/[~ rep prt tm] [~ rep ct labl] - [~ rep ct ivnm] [facility] [place] [address] Dictated: 02/07/171812 Transcribed: 02/07/171812 ARG Printed Date/Time: [~ rep prt dt]/[~ rep prt tm] [~ rep ct labl] - [~ rep ct ivnm] Patient: IRON RAND JR Address1: [address] [place] Rec: [id number] Address2: Acct ID: [id number] [facility] Zip: [place] [address] Date: 1950 Sex: M Room/Bed: E415-1 Ref Phy: Eugenio Lockwood M.D. SC: C.4E Att Phy: Arthur Santos MD, PhD Report #: [id number] Rosita Phy: Eugenio Lockwood M.D. Test: HBH Admit Phy: Kenny Guerrero M.D. Lease Attendant: ADRIEL Interpreting Phy: Julius Morgan M.D. Diagnosis: ABDOMINAL PAIN,FEVER Ordering Phy: Roberta Welsh PA-C Service Date: 02/07/17 Admit Date: 02/07/1708/03/17 MNE: [id number] CONF: DICTATED BY: Julius Morgan M.D.]] CC: Eugenio Lockwood M.D. Lin, Daniel Y., MD, PhD Roberta Welsh .HOLDEN Endcc: [~ rep ct add3]] NUCLEAR MEDICINE HEPATOBILIARY SCAN CLINICAL HISTORY: Right upper quadrant abdominal pain. Elevated total bilirubin. COMPARISON STUDY: Biliary ultrasound dated 02/07/2017 FINDINGS: The patient was injected with 5.4 mCi of technetium 99m Choletec. Sequential anterior imaging was performed. Hepatic excretion appeared unremarkable. The gallbladder was first visualized at 20 minute image. There is normal passage of activity into small bowel. IMPRESSION: 1. Normal study. No evidence of cystic duct obstruction. Electronically signed by: Julius Morgan M.D. 02/07/2017 6:15 PM Dictated Date/Time: 02/07/2017 6:13 PM The status of this report is Signed. Draft = Not yet reviewed or approved by Radiologist. Signed = Reviewed and approved by Radiologist. <AttendingPhy>Arthur Santos MD, PhD</AttendingPhy> <FamilyPhy>Eugenio Lockwood M.D.</FamilyPhy> <PrimaryPhy>Eugenio Lockwood M.D.</PrimaryPhy> <UnitNumber> [id number]</UnitNumber> <VisitNumber>[id number]</VisitNumber> <PatientName> SYLWIA RANDODMANUEL Francis </PatientName> <DateOfBirth>1950</DateOfBirth> < Location>C.4E</Location> <ServiceDate>02/06/17</ServiceDate> <MNE>ESINDI</MNE> < OrderingPhy>Roberta Welsh PA-C</OrderingPhy> <OrderingPhyMNE>f rep ord dr dan< /OrderingPhyMNE> <DictatingPhyMNE>f rep dict dr dan</DictatingPhyMNE> <CCListMNE >f rep ct mne</CCListMNE> <AdmittingPhyMNE>f pt admit dr dan</AdmittingPhyMNE> < AttendingPhyMNE>f pt attend dr dan</AttendingPhyMNE> <ConsultingPhyMNE>f pt consult dr dan</ConsultingPhyMNE> <FamilyPhyMNE>f pt fam dr dan</FamilyPhyMNE> <OtherPhyMNE>f pt other dr dan</OtherPhyMNE> < PrimaryPhyMNE>f pt prim care dr dan</PrimaryPhyMNE> <ReferringPhyMNE>f pt referring dr dan</ReferringPhyMNE> Patient Name: IRON RAND I Unit Number: [id number] Dictated: 02/08/17923 Transcribed: 02/08/17923 MS Printed Date/Time: [~ rep prt dt]/[~ rep prt tm] [~ rep ct labl] - [~ rep ct ivnm] [facility] Radiology Department [place], [place] [id number] Dictated: 02/08/17923 Transcribed: 02/08/17923 MS Printed Date/Time: [~ rep prt dt]/[~ rep prt tm] [~ rep ct labl] - [~ rep ct ivnm] Patient: IRON RAND I [address] Rec: [id number] Address2: Acct ID: [id number] [facility] Zip: [place] [address] Date: 1950 Sex: M Room/Bed: [facility] Ref Phy: Eugenio Lockwood M.D. SC: C.4E Att Phy: Arthur Santos MD, PhD Report #: [id number] Rosita Phy: Eugenio Lockwood M.D. Test: CXR Admit Phy: Kenny Guerrero M.D. Lease Attendant: GREG Interpreting Phy: Wesley Baker M.D. Diagnosis: ABDOMINAL PAIN,FEVER Ordering Phy: Arthur Santos MD, PhD Service Date: 02/08/17 Admit Date: 02/07/1708/03/17 MNE: [id number] CONF: DICTATED BY: Wesley Baker M.D.]] CC: Eugenio Lockwood M.D. Lin, Daniel Y., MD, PhD Endcc: [~ rep ct add3]] CHEST 2 VIEWS ROUTINE CLINICAL HISTORY: follow up possible pnea pneumonitis COMPARISON STUDY: 02/06/2017 FINDINGS: Improved exam. Improved infiltrative change left base and to lesser extent right midlung. Postoperative change bilaterally stable. Small hiatal hernia. IMPRESSION: Improving basilar infiltrative change. Mild residual. The above report was generated using voice recognition software. It may contain grammatical, syntax or spelling errors. Electronically signed by: Wesley Baker M.D. 02/08/2017 9:25 AM Dictated Date/Time: 02/08/2017 9:24 AM The status of this report is Signed. Draft = Not yet reviewed or approved by Radiologist. Signed = Reviewed and approved by Radiologist. <AttendingPhy>Arthur Santos MD, PhD</AttendingPhy> <FamilyPhy>Eugenio Lockwood M.D.</FamilyPhy> <PrimaryPhy>Eugenio Lockwood M.D.</PrimaryPhy> <UnitNumber> [id number]</UnitNumber> <VisitNumber>[id number]</VisitNumber> <PatientName> IRON RAND JR</PatientName> <DateOfBirth>1950</DateOfBirth> < Location>C.4E</Location> <ServiceDate>02/06/17</ServiceDate> <MNE>ESINDI</MNE> < OrderingPhy>Arthur Santos MD, PhD</OrderingPhy> <OrderingPhyMNE>f rep ord dr dan </OrderingPhyMNE> <DictatingPhyMNE>f rep dict dr dan</DictatingPhyMNE> < CCListMNE>f rep ct sheylae</CCListMNE> <AdmittingPhyMNE>f pt admit dr dan</ AdmittingPhyMNE> <AttendingPhyMNE>f pt attend dr dan</AttendingPhyMNE> <ConsultingPhyMNE>f pt consult dr dan</ConsultingPhyMNE> <FamilyPhyMNE>f pt fam dr dan</FamilyPhyMNE> <OtherPhyMNE>f pt other dr dan</OtherPhyMNE> < PrimaryPhyMNE>f pt prim care dr dan</PrimaryPhyMNE> <ReferringPhyMNE>f pt referring dr dan</ReferringPhyMNE> Assessment and Plan 66 y/o male with a 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 Initial CXR is suggestive of a LLL infiltrate. Abdominal CT revealed gall bladder thickening and mild stranding, fat stranding suggesting possible acute diverticulitis. Fevers secondary to acute cholecystitis vs LLL PNA vs diverticulitis-- improving. Last fever 38 or higher was 8/3 -Admit to med/surg -General surgery consulted, appreciate recs: No acute surgical intervention indicated at this time. Continue IV antibiotics and current medical management. General Surgery will sign off. -HIDA scan negative -Repeat CXR 02/08 shows improvement of base infiltrate compared to 02/06 -RUQ U/S shows cirrhosis. Nonspecific gallbladder wall thickening. No shadowing gallstones identified and sonographic Choudhary's sign absent. This is nonspecific and may be related to cirrhosis. Findings equivocal for acute cholecystitis which is not excluded. Non-obstructing right renal calculus. -Tolerating PO diet -Infectious disease consulted, appreciate recs: Called Dr. Wright. Can change Zosyn to ertapenem. -Blood cultures NGTD x 2 -Urine legionella pending -D/C IV Levaquin and Zosyn -Levaquin 250 mg PO q48h, renal dosing. Day #2 of 7 of abx -Flagyl 500 mg PO q8h, give after dialysis. Day #2 of [address] Aguilar's recommendations. -Procalcitonin elevated at 2.94 -Repeat ESR WNL -Repeat CRP increased to 9.61 -Called pt's transplant team, spoke to a Dr. Bernard Aguilar regarding pt's care. He recommended decreasing antibiotics and focusing on GI coverage. Recommended Levaquin and Flagyl. PO is okay if patient is eating. He recommended treating for possible diverticulitis and then continuing Flagyl for an extra week as pt has history of recurrent C. diff. Can stop vancomycin if MRSA negative. Transplant team will call pt so he can follow up in a few weeks. H/o b/l lung transplant -Increase Prednisone to 10 mg PO qd -Continue everolimus 3 mg PO BID and tacrolimus 3 mg PO BID -Spoke with transplant team as above ESRD on HD -Nephrology consulted appreciate recs: consider increasing chronic steroid due to acute stress and hypotension. Agree with gentle hydration -Continue Phoslo TIDM H/o DM II--last HgbA1c checked in September 2015 was 4.9 -Continue Lantus 3 units SC qhs -Insulin sliding scale -Check BSGs q ac and qhs -Pharmacy consulted for glycemic control -Recheck HgbA1c Hypothyroidism -Continue Synthroid 75 mcg PO qd Thrombocytopenia -Appears to be chronic but acutely worse this admission -PLT 46 on 02/08 DVT prophylaxis -SCDs Code Status -Level I, FULL RESUSCITATION STATUS
[2017-02-08] MEDS ORDERED: ERTAPENEM IV 1 GM in SODIUM CHLOR 0.9% AD-VAN 50ML 50 ML IV SCH (12:30)
[2017-02-08] MEDS: METRONIDAZOLE 500 MG TAB PO SCH ×2 (14:16→20:38)
--- NOTE | 2017-02-08 14:44 | Infectious Disease Progress Nt ---
Progress Note Date of Service Feb 08, 2017. Subjective Pt evaluation today including: conversation w/ patient, physical exam, chart review, lab review, review of studies, conversation w/ service delivery management consultant, review of inpatient medication list Patient had low-grade fever this morning, currently afebrile. Abdominal pain much less. No worsening cough or shortness of breath. Tolerating antibiotics without apparent difficulty. Had HIDA scan which showed no evidence of biliary tract disease. Blood cultures remain negative. All Other Systems: Reviewed and Negative Medications Current Inpatient Medications Medications (Trade) Dose Ordered Sig/Beverley Route Start Time Stop Time Status Last Admin Dose Admin Albuterol (Ventolin Hfa Inhaler) 2 puffs Q6H PRN INH 02/07/17 01:15 03/09/17 01:14 Calcium Acetate (Phoslo Cap) 1,334 mg TIDM PO 02/07/17 08:00 03/09/17 07:59 02/08/17 14:18 1,334 MG Guaifenesin (Mucinex Contr Rel Tab) 600 mg AMHS PO 02/07/17 08:00 03/09/17 08:59 02/08/17 07:56 600 MG Levothyroxine Sodium (Synthroid Tab) 75 mcg DAILYBB PO 02/07/17 06:30 03/09/17 06:59 02/08/17 06:23 75 MCG Ondansetron HCl (Zofran Tab) 4 mg Q6 PRN PO 02/07/17 01:15 03/09/17 01:14 Pantoprazole Sodium (Protonix Tab) 40 mg BID PO 02/07/17 08:00 03/09/17 08:59 02/08/17 07:55 40 MG Sertraline HCl (Zoloft Tab) 150 mg HS PO 02/07/17 21:00 03/09/17 20:59 02/07/17 21:21 150 MG Tacrolimus (Prograf Cap) 3 mg BID PO 02/07/17 08:00 03/09/17 08:59 02/08/17 07:56 3 MG Tobramycin Sulfate (Nebcin Inj) 80 mg BIDR INH 02/07/17 10:00 03/09/17 09:59 02/07/17 19:38 80 MG Triamcinolone Acetonide (Kenalog 0.5% Crm) 1 appln BID EXT 02/07/17 08:00 03/09/17 08:59 02/08/17 07:59 1 APPLN Zolpidem Tartrate (Ambien Tab) 5 mg HS PRN PO 02/07/17 01:15 03/09/17 01:14 02/07/17 03:04 5 MG Miscellaneous Information (Order Awaiting Action) 1 ea QS N/A 02/07/17 02:15 03/09/17 02:14 Oxycodone HCl (Roxicodone Immediate Rel Tab) 5 mg Q4H PRN PO 02/07/17 01:45 02/21/17 01:44 Acetaminophen (Tylenol Tab) 650 mg Q4H PRN PO 02/07/17 01:15 03/09/17 01:14 02/07/17 07:46 650 MG Al Hydrox/Mg Hydrox/Simethicone (Maalox Max Susp) 15 ml Q4H PRN PO 02/07/17 01:15 03/09/17 01:14 Magnesium Hydroxide (Milk Of Magnesia Susp) 30 ml Q6H PRN PO 02/07/17 01:15 03/09/17 01:14 Polyethylene (Miralax Powder Packet) 17 gm DAILY PRN PO 02/07/17 01:45 03/09/17 01:44 Ondansetron HCl (Zofran Inj) 4 mg Q6H PRN IV 02/07/17 01:15 03/09/17 01:14 02/07/17 07:53 4 MG Vancomycin HCl (Consult) 1 ea UD PRN N/A 02/07/17 01:45 03/09/17 01:44 Levofloxacin (Consult) 1 ea UD PRN N/A 02/07/17 01:45 03/09/17 01:44 Albuterol Sulfate (Ventolin 0.083% 2.5MG/3ML Neb) 2.5 mg BIDR INH 02/07/17 10:00 03/09/17 09:59 02/07/17 19:16 2.5 MG Miscellaneous Information (Consult Glycemic Management Pharmacy) 1 ea UD PRN N/A 02/07/17 10:54 03/09/17 10:53 Insulin Aspart (novoLOG ASPART) SLIDING SCALE ACHS SC 02/07/17 12:00 03/09/17 11:59 02/08/17 14:21 4 UNITS Lactobacillus Acidophilus (Floranex Tab) 4 tab TIDM PO 02/07/17 17:00 03/09/17 16:59 Future Hold Epoetin Iker 8000 units/Syringe 0.4 ml @ 1 mls/min TODAY@0600 IV. 02/08/17 06:00 02/08/17 18:00 02/08/17 12:21 1 MLS/MIN Prednisone (PredniSONE TAB) 10 mg QAM PO 02/08/17 08:00 03/09/17 08:59 02/08/17 08:03 10 MG Insulin Glargine (Lantus Solostar Pen) SEE PROTOCOL TEXT HS SC 02/08/17 21:00 03/10/17 20:59 Vancomycin HCl 500 mg/Sodium Chloride 110 ml @ 40 mls/hr TODAY@1600 IV 02/08/17 16:00 02/08/17 23:59 Levofloxacin (Levaquin Tab) 500 mg Q2D PO 02/09/17 11:00 02/19/17 10:59 Metronidazole (Flagyl Tab) 500 mg Q8H PO 02/08/17 14:00 02/18/17 13:59 02/08/17 14:16 500 MG Objective Vital Signs Date Time Temp Pulse Resp B/P (MAP) Pulse Ox O2 Delivery O2 Flow Rate FiO2 02/08/17 13:52 36.5 71 114/59 (77) 02/08/17 13:00 69 95/50 02/08/17 12:45 74 90/56 02/08/17 12:30 73 105/58 02/08/17 12:20 73 94/54 02/08/17 12:15 75 86/52 02/08/17 12:00 80 90/51 02/08/17 11:45 84 107/63 02/08/17 11:30 77 112/64 02/08/17 11:15 80 104/60 02/08/17 11:00 81 110/62 02/08/17 10:45 79 103/60 02/08/17 10:30 82 109/61 02/08/17 10:15 80 109/61 02/08/17 10:00 84 111/61 02/08/17 09:45 82 105/57 02/08/17 09:32 37.4 88 102/56 (71) 02/08/17 08:30 99 Room Air 02/08/17 07:45 37.6 81 20 115/69 (84) 99 Room Air 02/08/17 00:15 96 Room Air 02/07/17 23:43 37.7 86 18 88/48 (61) 95 Room Air 02/07/17 19:16 88 16 96 Room Air 02/07/17 16:00 Room Air 02/07/17 15:53 37.3 84 18 89/51 (64) 92 Room Air Physical Exam General Appearance: WD/WN, no apparent distress Eyes: normal inspection, sclerae normal ENT: normal ENT inspection, pharynx normal Neck: supple, no adenopathy, thyroid normal, trachea midline Respiratory/Chest: chest non-tender, no respiratory distress, no accessory muscle use, + rales (Left base) Cardiovascular: regular rate, rhythm, no gallop, no murmur Abdomen: normal bowel sounds, soft, no organomegaly, + tenderness (Mild upper quadrant) Extremities: non-tender, no calf tenderness Neurologic/Psychiatric: alert, oriented x 3 Skin: normal color, warm/dry, no rash Lymphatic: no adenopathy Laboratory Results Last 24 Hours Test 02/07/17 16:33 02/07/17 19:56 02/08/17 00:45 02/08/17 07:57 Bedside Glucose 134 mg/dl 168 mg/dl White Blood Count 4.39 K/uL Red Blood Count 3.51 M/uL Hemoglobin 10.7 g/dL Hematocrit 32.0 % Mean Corpuscular Volume 91.2 fL Mean Corpuscular Hemoglobin 30.5 pg Mean Corpuscular Hemoglobin Concent 33.4 g/dl RDW Standard Deviation 64.6 fL RDW Coefficient of Variation 19.5 % Platelet Count 46 K/uL Mean Platelet Volume 9.5 fL Platelet Estimate DECREASED Sodium Level 134 mmol/L Potassium Level 4.0 mmol/L Chloride Level 95 mmol/L Carbon Dioxide Level 24 mmol/L Anion Gap 15.0 mmol/L Blood Urea Nitrogen 61 mg/dl Creatinine 9.40 mg/dl Est Creatinine Clear Calc Drug Dose 7.3 ml/min Estimated GFR () 5.9 Estimated GFR (Non- 5.1 BUN/Creatinine Ratio 6.5 Random Glucose 127 mg/dl Calcium Level 8.5 mg/dl Random Vancomycin Level 20.5 mcg/ml Test 02/08/17 07:59 02/08/17 11:42 Bedside Glucose 127 mg/dl 134 mg/dl Assessment and Plan 66-year-old male, immunocompromised status post lung transplant, now presents with fever, abdominal pain, and cough with x-ray findings showing possible left lower lobe pneumonia as well as possible diverticulitis. Patient should be continued on broad-spectrum antibiotic therapy with Zosyn and levofloxacin pending further culture results Legionella urinary antigen is pending. Will follow.
[2017-02-08] MEDS ORDERED: VANCOMYCIN INJ 500 MG in SODIUM CHLORIDE 0.9% 100ML 100 ML IV SCH (16:00)
[2017-02-08] MEDS ORDERED: VANCOMYCIN INJ 500 MG in SODIUM CHLORIDE 0.9% 250ML 250 ML IV SCH (16:00)
[2017-02-08] MEDS: ALBUTEROL 0.083% NEBU SOLN 3 ML VIAL INH SCH (19:17)
[2017-02-08] MEDS: SERTRALINE HCL 50 MG TAB PO SCH (20:37)
[2017-02-08] MEDS: ZOLPIDEM TARTRATE 5 MG TAB PO PRN (20:39)
[2017-02-08] MEDS: INSULIN GLARGINE SOLOSTAR 100 UNITS/ML 3 ML PEN SC SCH (20:42)
[2017-02-09] MEDS ORDERED: LEVOFLOXACIN 500MG / D5W IV SCH (04:00)
[2017-02-09 06:03] LABS: HEMATOCRIT 29.6 % (42-52); MEAN CELL VOLUME 91.6 fL (80-100); MEAN CORPUSCULAR HEMOGLOBIN 30.3 pg (25-34); MEAN CORPUSCULAR HGB CONC 33.1 g/dl (32-36); RED BLOOD COUNT 3.23 M/uL (4.7-6.1); WHITE BLOOD COUNT 2.53 K/uL (4.8-10.8)
[2017-02-09 06:08] LABS: MEAN PLATELET VOLUME 9.3 fL (7.4-10.4); PLATELET COUNT 50 K/uL (130-400)
[2017-02-09] MEDS: METRONIDAZOLE 500 MG TAB PO SCH ×3 (06:37→21:58)
[2017-02-09] MEDS: LEVOTHYROXINE 75 MCG TAB PO SCH (06:37)
[2017-02-09 07:03] LABS: BUN/CREATININE RATIO 4.9 (10-20); CALCIUM 8.5 mg/dl (8.5-10.1); CREATININE 6.3 mg/dl (0.60-1.40); POTASSIUM 4.1 mmol/L (3.5-5.1)
[2017-02-09 07:26] VITALS: BP 99/64; PULSE 75; TEMP 37.2; O2SAT 91
[2017-02-09] MEDS: ALBUTEROL 0.083% NEBU SOLN 3 ML VIAL INH SCH ×2 (07:44→19:21)
[2017-02-09 07:45] VITALS: PULSE 85; O2SAT 92
[2017-02-09] MEDS: TOBRAMYCIN SULF 40 MG/ML 2 ML VIAL INH SCH ×2 (08:00→19:22)
[2017-02-09] MEDS: TRIAMCINOLONE ACET 0.5% CR 15 GM TUBE EXT SCH ×2 (08:27→20:08)
[2017-02-09] MEDS: PANTOprazole SOD 40 MG TAB PO SCH ×2 (08:28→19:57)
[2017-02-09] MEDS: CALCIUM ACETATE 667MG GELCAP PO SCH ×3 (08:28→17:10)
[2017-02-09] MEDS: GUAIFENESIN 600 MG TABCR PO SCH ×2 (08:28→19:56)
[2017-02-09] MEDS: TACROLIMUS 1 MG CAP PO SCH ×2 (08:28→20:06)
[2017-02-09] MEDS: INSULIN ASPART 100 UNITS/ML 3 ML PEN SC SCH ×4 (08:30→21:56)
[2017-02-09 08:32] LABS: ESTIMATED AVERAGE GLUCOSE 108 mg/dl; HA1C FLAG Normal (Normal)
--- NOTE | 2017-02-09 09:16 | Progress Note ---
Subjective Date of Service: Feb 09, 2017. Subjective Pt evaluation today including: conversation w/ patient, conversation w/ family , physical exam, chart review, lab review, review of studies, review of inpatient medication list Doing okay, no spiking fever, eating and drinking, however he reported has diarrhea, history of C. difficile, one time bowel movement today and 4 times diarrhea yesterday Problem List Medical Problems: (1) Acute diverticulitis Status: Acute (2) Atrial flutter Status: Acute (3) Chronic renal failure Status: Acute (4) Dehydration Status: Acute (5) Dizziness Status: Acute (6) Fever Status: Acute (7) Hypotension Status: Acute (8) Left lower lobe pneumonia Status: Acute (9) Swelling of left extremity Status: Acute (10) Thrombocytopenia Status: Acute Review of Systems Constitutional: + weakness, + fatigue, No fever, No chills, No sweats, No weight loss, No problem reported Eyes: No worsening of vision, No eye pain, No redness, No discharge, No diplopia ENT: No hearing loss, No unusual epistaxis, No nasal symptoms, No sore throat, No tinnitus, No dental problems, No trouble swallowing Respiratory: No cough, No sputum, No wheezing, No shortness of breath, No dyspnea on exertion, No dyspnea at rest, No hemoptysis Cardiac: No chest pain, No orthopnea, No PND, No edema, No claudication, No palpitations Abdomen: + see HPI, + diarrhea, No pain, No nausea, No vomiting, No constipation Musculoskeletal: No joint pain, No muscle pain, No swelling, No calf pain Male : No dysuria, No urinary frequency, No incontinence, No nocturia more than once/night, No slowing stream, No hematuria Neurologic: No memory loss, No paralysis, No weakness, No numbness/tingling, No vertigo, No balance problems Psychiatric: No depression symptoms, No anhedonism, No anxiety, No insomnia, No substance abuse Heme: No abnormal bleeding/bruising, No clotting problems, No swollen lymph nodes, No night sweats Endo: No fatigue, No excessive thirst, No excessive urination Skin: No rash, No itch, No new/changing skin lesions, No color change, No bleeding Objective Vital Signs Date Time Temp Pulse Resp B/P (MAP) Pulse Ox O2 Delivery O2 Flow Rate FiO2 02/09/17 07:45 85 16 92 Room Air 02/09/17 07:26 37.2 75 18 99/64 (76) 91 Room Air 02/09/17 00:00 Room Air 02/08/17 23:45 37.1 74 18 95/54 (68) 92 Room Air 02/08/17 20:00 90 Room Air 02/08/17 19:28 76 16 90 Room Air 02/08/17 16:10 Room Air 02/08/17 15:54 37.1 87 20 97/61 (73) 96 Room Air 02/08/17 13:52 36.5 71 114/59 (77) 02/08/17 13:00 69 95/50 02/08/17 12:45 74 90/56 02/08/17 12:30 73 105/58 02/08/17 12:20 73 94/54 02/08/17 12:15 75 86/52 02/08/17 12:00 80 90/51 02/08/17 11:45 84 107/63 02/08/17 11:30 77 112/64 02/08/17 11:15 80 104/60 02/08/17 11:00 81 110/62 02/08/17 10:45 79 103/60 02/08/17 10:30 82 109/61 02/08/17 10:15 80 109/61 02/08/17 10:00 84 111/61 02/08/17 09:45 82 105/57 02/08/17 09:32 37.4 88 102/56 (71) Physical Exam General Appearance: WD/WN, no apparent distress, + pertinent finding (pleasant and conversational) Eyes: normal inspection, PERRL, EOMI, sclerae normal ENT: normal ENT inspection, hearing grossly normal, pharynx normal Neck: supple, no adenopathy, thyroid normal, no JVD, no carotid bruits, trachea midline Respiratory/Chest: chest non-tender, normal breath sounds, no respiratory distress, no accessory muscle use, + decreased breath sounds Cardiovascular: regular rate, rhythm, no edema, no gallop, no JVD, no murmur Abdomen: normal bowel sounds, non tender, soft, no organomegaly, no pulsatile mass Extremities: normal range of motion, non-tender, normal inspection, no pedal edema, no calf tenderness, normal capillary refill, pelvis stable Neurologic/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: 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, no motor/sensory deficits, alert, normal mood/affect, oriented x 3 Skin: normal color, warm/dry, no rash Lymphatic: no adenopathy Laboratory Results Last 24 Hours Test 02/08/17 11:42 02/08/17 16:35 02/08/17 19:35 02/09/17 05:44 Bedside Glucose 134 mg/dl 165 mg/dl 120 mg/dl White Blood Count 2.53 K/uL Red Blood Count 3.23 M/uL Hemoglobin 9.8 g/dL Hematocrit 29.6 % Mean Corpuscular Volume 91.6 fL Mean Corpuscular Hemoglobin 30.3 pg Mean Corpuscular Hemoglobin Concent 33.1 g/dl RDW Standard Deviation 65.7 fL RDW Coefficient of Variation 19.6 % Platelet Count 50 K/uL Mean Platelet Volume 9.3 fL Sodium Level 137 mmol/L Potassium Level 4.1 mmol/L Chloride Level 103 mmol/L Carbon Dioxide Level 27 mmol/L Anion Gap 7.0 mmol/L Blood Urea Nitrogen 31 mg/dl Creatinine 6.30 mg/dl Est Creatinine Clear Calc Drug Dose 10.9 ml/min Estimated GFR () 9.6 Estimated GFR (Non- 8.3 BUN/Creatinine Ratio 4.9 Random Glucose 104 mg/dl Estimated Average Glucose 108 mg/dl Hemoglobin A1c 5.4 % Calcium Level 8.5 mg/dl Test 02/09/17 07:40 Bedside Glucose 106 mg/dl Assessment and Plan 66 y/o male with who presents with abdominal pain and fever. Initial CXR is suggestive of a LLL infiltrate. Abdominal CT revealed gall bladder thickening and mild stranding, fat stranding suggesting possible acute diverticulitis. 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 Last fever 38 or higher was 8/, no fever for more than 24 hours -Admit to med/surg -General surgery consulted, appreciate recs: No acute surgical intervention indicated at this time. Continue IV antibiotics and current medical management. General Surgery will sign off. -HIDA scan negative -Repeat CXR 02/08 shows improvement of base infiltrate compared to 02/06 -RUQ U/S shows cirrhosis. Nonspecific gallbladder wall thickening. No shadowing gallstones identified and sonographic Choudhary's sign absent. This is nonspecific and may be related to cirrhosis. Findings equivocal for acute cholecystitis which is not excluded. Non-obstructing right renal calculus. -Tolerating PO diet -Infectious disease consulted, appreciate recs: -Blood cultures NGTD x 2 -Urine legionella pending -D/C IV Levaquin and Zosyn -Levaquin 250 mg PO q48h, renal dosing. Day #3 of 7 of abx -Flagyl 500 mg PO q8h, give after dialysis. Day #3 of [address] Aguilar's recommendations. -Procalcitonin elevated at 2.94 -Repeat ESR WNL -Repeat CRP increased to 9.61 -Called pt's transplant team on 02/08/2017, spoke to a Dr. Bernard Aguilar regarding pt's care. He recommended decreasing antibiotics and focusing on GI coverage. Recommended Levaquin and Flagyl. PO is okay if patient is eating. He recommended treating for possible diverticulitis and then continuing Flagyl for an extra week as pt has history of recurrent C. diff. Can stop vancomycin if MRSA negative. Transplant team will call pt so he can follow up in a few weeks. H/o b/l lung transplant -Increase Prednisone to 10 mg PO qd on 02/08/2017, home dose was 5 mg daily -Continue everolimus 3 mg PO BID and tacrolimus 3 mg PO BID -Spoke with transplant team as above ESRD on HD -Nephrology consulted appreciate recs: consider increasing chronic steroid due to acute stress and hypotension. Agree with gentle hydration -Continue Phoslo TIDM H/o DM II--last HgbA1c checked in September 2015 was 4.9 -Continue Lantus 3 units SC qhs -Insulin sliding scale -Check BSGs q ac and qhs -Pharmacy consulted for glycemic control -Recheck HgbA1c Hypothyroidism -Continue Synthroid 75 mcg PO qd Thrombocytopenia -Appears to be chronic but acutely worse this admission -Stable DVT prophylaxis -SCDs Code Status -Level I, FULL RESUSCITATION STATUS - Planning discharge home tomorrow if continued doing well on oral antibiotics Continued [facility] stay due to: home environment unsafe for pt Discharge planning: home
[2017-02-09] MEDS ORDERED: LEVOFLOXACIN 500 MG TAB PO SCH (11:00)
--- NOTE | 2017-02-09 11:39 | Nephrology Progress Note ---
Nephrology Progress Note Date of Service Feb 09, 2017. Chief Complaint Follow-up for end-stage renal disease on hemodialysis. Subjective Mr. Diaz was seen and examined his room this morning. He has been otherwise feeling well, no further episode of abdominal pain and nausea. Denies any shortness of breath or chest pain. No fever overnight. Blood pressure has been relatively soft but asymptomatic. Had dialysis yesterday, had 2 liters ultra filtration. Hemoglobin remained stable, 9.8 this morning. Review of Systems A complete review of systems was performed. Pertinent positives are noted above. All other systems are negative. Vital Signs Last 8 Hrs Date Time Temp Pulse Resp B/P (MAP) Pulse Ox O2 Delivery O2 Flow Rate FiO2 02/09/17 08:15 Room Air 02/09/17 07:45 85 16 92 Room Air 02/09/17 07:26 37.2 75 18 99/64 (76) 91 Room Air Last Recorded Weight Weight (Kilograms): 76.600 Physical Exam GENERAL: Middle-aged male, AAA x 3, pleasant, chronically ill-appearing, not in any distress. NECK: Supple, no JVD. RESPIRATORY: Normal breathing efforts, no accessory muscle use, clear to auscultation bilaterally, no wheezes or rales. CARDIOVASCULAR: S1, S2 normal, rate rhythm regular. EXTREMITY: No lower extremity edema NEURO: speech fluent. PSYCHIATRY: Normal mood and judgment Family History FHx: heart disease Hypertension Negative for CKD / ESRD Social History Smoking Status: Unknown if ever smoked Drug Use: none Marital Status: Occupation: retired . Retired. Never smoked. Laboratory Results Past 24 Hours 02/09/17 05:44 02/09/17 05:44 Test 02/08/17 11:42 02/08/17 16:35 02/08/17 19:35 02/09/17 05:44 Bedside Glucose 134 mg/dl (70-99) 165 mg/dl (70-99) 120 mg/dl (70-99) Red Blood Count 3.23 M/uL (4.7-6.1) Mean Corpuscular Volume 91.6 fL (80-100) Mean Corpuscular Hemoglobin 30.3 pg (25-34) Mean Corpuscular Hemoglobin Concent 33.1 g/dl (32-36) RDW Standard Deviation 65.7 fL (36.4-46.3) RDW Coefficient of Variation 19.6 % (11.5-14.5) Mean Platelet Volume 9.3 fL (7.4-10.4) Anion Gap 7.0 mmol/L (3-11) Est Creatinine Clear Calc Drug Dose 10.9 ml/min Estimated GFR () 9.6 Estimated GFR (Non- 8.3 BUN/Creatinine Ratio 4.9 (10-20) Estimated Average Glucose 108 mg/dl Hemoglobin A1c 5.4 % (4.5-5.6) Calcium Level 8.5 mg/dl (8.5-10.1) Test 02/09/17 07:40 Bedside Glucose 106 mg/dl (70-99) Date/Time Source Procedure Growth Status 02/08/17 15:00 Nasal MRSA DNA Surveillance Screen - Final Specimen Negative for MRSA by DNA Probe Complete Allergies Coded Allergies: Cat Dander (Unverified Allergy, Mild, RASH, 02/06/17) Dog Dander (Unverified Allergy, Mild, RASH, 02/06/17) POLLEN (Unverified Allergy, Mild, RASHES, 02/06/17) Medications Current Inpatient Medications Medications (Trade) Dose Ordered Sig/Beverley Route Start Time Stop Time Status Last Admin Dose Admin Albuterol (Ventolin Hfa Inhaler) 2 puffs Q6H PRN INH 02/07/17 01:15 03/09/17 01:14 Calcium Acetate (Phoslo Cap) 1,334 mg TIDM PO 02/07/17 08:00 03/09/17 07:59 02/09/17 08:28 1,334 MG Guaifenesin (Mucinex Contr Rel Tab) 600 mg AMHS PO 02/07/17 08:00 03/09/17 08:59 02/09/17 08:28 600 MG Levothyroxine Sodium (Synthroid Tab) 75 mcg DAILYBB PO 02/07/17 06:30 03/09/17 06:59 02/09/17 06:37 75 MCG Ondansetron HCl (Zofran Tab) 4 mg Q6 PRN PO 02/07/17 01:15 03/09/17 01:14 Pantoprazole Sodium (Protonix Tab) 40 mg BID PO 02/07/17 08:00 03/09/17 08:59 02/09/17 08:28 40 MG Sertraline HCl (Zoloft Tab) 150 mg HS PO 02/07/17 21:00 03/09/17 20:59 02/08/17 20:37 150 MG Tacrolimus (Prograf Cap) 3 mg BID PO 02/07/17 08:00 03/09/17 08:59 02/09/17 08:28 3 MG Tobramycin Sulfate (Nebcin Inj) 80 mg BIDR INH 02/07/17 10:00 03/09/17 09:59 02/09/17 08:00 80 MG Triamcinolone Acetonide (Kenalog 0.5% Crm) 1 appln BID EXT 02/07/17 08:00 03/09/17 08:59 02/09/17 08:27 1 APPLN Zolpidem Tartrate (Ambien Tab) 5 mg HS PRN PO 02/07/17 01:15 03/09/17 01:14 02/08/17 20:39 5 MG Miscellaneous Information (Order Awaiting Action) 1 ea QS N/A 02/07/17 02:15 03/09/17 02:14 Oxycodone HCl (Roxicodone Immediate Rel Tab) 5 mg Q4H PRN PO 02/07/17 01:45 02/21/17 01:44 Acetaminophen (Tylenol Tab) 650 mg Q4H PRN PO 02/07/17 01:15 03/09/17 01:14 02/07/17 07:46 650 MG Al Hydrox/Mg Hydrox/Simethicone (Maalox Max Susp) 15 ml Q4H PRN PO 02/07/17 01:15 03/09/17 01:14 Magnesium Hydroxide (Milk Of Magnesia Susp) 30 ml Q6H PRN PO 02/07/17 01:15 03/09/17 01:14 Polyethylene (Miralax Powder Packet) 17 gm DAILY PRN PO 02/07/17 01:45 03/09/17 01:44 Ondansetron HCl (Zofran Inj) 4 mg Q6H PRN IV 02/07/17 01:15 03/09/17 01:14 02/07/17 07:53 4 MG Vancomycin HCl (Consult) 1 ea UD PRN N/A 02/07/17 01:45 03/09/17 01:44 Levofloxacin (Consult) 1 ea UD PRN N/A 02/07/17 01:45 03/09/17 01:44 Albuterol Sulfate (Ventolin 0.083% 2.5MG/3ML Neb) 2.5 mg BIDR INH 02/07/17 10:00 03/09/17 09:59 02/09/17 07:44 2.5 MG Miscellaneous Information (Consult Glycemic Management Pharmacy) 1 ea UD PRN N/A 02/07/17 10:54 03/09/17 10:53 Insulin Aspart (novoLOG ASPART) SLIDING SCALE ACHS SC 02/07/17 12:00 03/09/17 11:59 02/09/17 08:30 5 UNITS Lactobacillus Acidophilus (Floranex Tab) 4 tab TIDM PO 02/07/17 17:00 03/09/17 16:59 Future Hold Prednisone (PredniSONE TAB) 10 mg QAM PO 02/08/17 08:00 03/09/17 08:59 02/09/17 08:28 10 MG Insulin Glargine (Lantus Solostar Pen) SEE PROTOCOL TEXT HS SC 02/08/17 21:00 03/10/17 20:59 02/08/17 20:42 3 UNITS Levofloxacin (Levaquin Tab) 500 mg Q2D PO 02/09/17 11:00 02/19/17 10:59 02/09/17 08:28 500 MG Metronidazole (Flagyl Tab) 500 mg Q8H PO 02/08/17 14:00 02/18/17 13:59 02/09/17 06:37 500 MG Impression (1) Pulmonary fibrosis (2) S/P lung transplant (3) Fever (4) Left lower lobe pneumonia (5) End-stage renal disease on hemodialysis (6) Anemia Immunocompromised patient w/ double lung transplant who presents with febrile illness and abdominal discomfort. CXR w/ LLL infiltrate. Abdominal CT show thickening of gall bladder wall. HIDA scan has been ordered. Patient has been placed on broad spectrum antibiotics and ID has been consulted. Mr. Diaz has ESRD and requires MWF HD. Recommendations --had hemodialysis yesterday, currently blood pressure, electrolyte and volume status acceptable. Continue to monitor over the weekend for any emergency need for dialysis. -- avoid IV fluid, continue on renal diet. -- antibiotic switched to orally for possible diverticulitis per recommendation by transplant center. --Continue on PhosLo and renal capsules. Will follow
[2017-02-09 15:32] VITALS: BP 128/75; PULSE 75; TEMP 36.8; O2SAT 95
[2017-02-09 19:53] VITALS: PULSE 77; O2SAT 93
[2017-02-09] MEDS: SERTRALINE HCL 50 MG TAB PO SCH (19:57)
[2017-02-09] MEDS: INSULIN GLARGINE SOLOSTAR 100 UNITS/ML 3 ML PEN SC SCH (21:55)
[2017-02-09] MEDS: ZOLPIDEM TARTRATE 5 MG TAB PO PRN (21:58)
[2017-02-09 23:25] VITALS: BP 103/48; PULSE 71; TEMP 36.6; O2SAT 98
[2017-02-10 06:24] LABS: HEMATOCRIT 30.5 % (42-52); MEAN CELL VOLUME 90.8 fL (80-100); MEAN CORPUSCULAR HEMOGLOBIN 28.9 pg (25-34); MEAN CORPUSCULAR HGB CONC 31.8 g/dl (32-36); RED BLOOD COUNT 3.36 M/uL (4.7-6.1); WHITE BLOOD COUNT 2.83 K/uL (4.8-10.8)
[2017-02-10] MEDS: METRONIDAZOLE 500 MG TAB PO SCH (06:25)
[2017-02-10] MEDS: LEVOTHYROXINE 75 MCG TAB PO SCH (06:25)
[2017-02-10 06:27] LABS: MEAN PLATELET VOLUME 9.5 fL (7.4-10.4); PLATELET COUNT 61 K/uL (130-400)
[2017-02-10 07:14] LABS: CALCIUM 8.5 mg/dl (8.5-10.1); POTASSIUM 3.9 mmol/L (3.5-5.1)
[2017-02-10 07:15] VITALS: PULSE 79; O2SAT 97
[2017-02-10] MEDS ORDERED: MTR500 PO (07:29)
[2017-02-10] MEDS ORDERED: LVQ500 PO (07:29)
--- NOTE | 2017-02-10 07:30 | Discharge Instructions ---
Discharge Instructions Date of Service Feb 10, 2017. Admission Reason for Admission: Abdominal Pain,Fever Discharge Discharge Diagnosis / Problem: possible acute diverticulitis cholecystitis, PNA Discharge Goals Goal(s): Decrease discomfort, Improve function, Increase independence, Improve disease control, Improve nutritional status, Learn about illness, Diagnostic testing, Therapeutic intervention, Prevent Disease Progression, Specific goals Activity Recommendations Activity Limitations: resume your previous activity . 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 - call your primary care physician OR go to local emergency room if has any fever/chill, chest pain, shortness of breathing, nausea/vomiting/abdominal pain , facial droop/slurry speech/local weakness, or if has any questions. - fall precaution - diet as instructed - you need to follow up with your subspecialists - you should understand that it is important to follow up the above instruction , and "not following the above instruction" may cause delayed or missed care of your medical conditions which may cause permanent organ damage and even . Current Hospital Diet Patient's current hospital diet: Diabetes Type 2 Diet Discharge Diet Recommended Diet: Diabetes Type 2 Diet Pending Studies Studies pending at discharge: yes List of pending studies: Urine legoinella antogen Laboratory Results Hemoglobin A1c Test 02/09/17 05:44 Range/Units Estimated Average Glucose 108 mg/dl Hemoglobin A1c 5.4 4.5-5.6 % Lipid Panel Test 01/15/17 11:31 Range/Units Triglycerides Level 296 H 0-150 mg/dl Cholesterol Level 249 H 0-200 mg/dl HDL Cholesterol 51 mg/dl Cholesterol/HDL Ratio 4.9 LDL Cholesterol, Calculated 139 mg/dl Medical Emergencies . Who to Call and When: Medical Emergencies: If at any time you feel your situation is an emergency, please call 911 immediately. . Non-Emergent Contact Non-Emergency issues call your: Primary Care Provider, Specialist (transplant team) . . "Provider Documentation" section prepared by Arthur Santos. . VTE Core Measure Inpt VTE Proph given/why not?: SCD's, Contraindicated
[2017-02-10] MEDS: ALBUTEROL 0.083% NEBU SOLN 3 ML VIAL INH SCH (07:35)
[2017-02-10] MEDS: PANTOprazole SOD 40 MG TAB PO SCH (07:37)
[2017-02-10] MEDS: TACROLIMUS 1 MG CAP PO SCH (07:38)
[2017-02-10] MEDS: CALCIUM ACETATE 667MG GELCAP PO SCH (07:38)
[2017-02-10] MEDS: GUAIFENESIN 600 MG TABCR PO SCH (07:39)
[2017-02-10] MEDS: TRIAMCINOLONE ACET 0.5% CR 15 GM TUBE EXT SCH (07:45)
[2017-02-10 07:56] VITALS: PULSE 74; O2SAT 98
[2017-02-10] MEDS: TOBRAMYCIN SULF 40 MG/ML 2 ML VIAL INH SCH (07:56)
[2017-02-10 08:06] VITALS: BP 111/69; PULSE 78; TEMP 36.7; O2SAT 96
--- NOTE | 2017-02-10 08:59 | Discharge Summary ---
Discharge Summary Date of Service Feb 10, 2017. 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, ESRD on HD, IDDM ESRD on HD Immunizations: Have You Had Influenza Vaccine: Yes Influenza Vaccine Date: Apr 30, 2013 History of Tetanus Vaccine?: Unknown History of Pneumococcal: Yes History of Hepatitis B Vaccine: No Procedures: No Consultations: Nephrology, infectious disease Medication Reconciliation New Medications: Levofloxacin (Levofloxacin) 500 Mg Tab 500 MG PO Q2D for 4 Days, #2 TAB Metronidazole (Metronidazole) 500 Mg Tab 500 MG PO Q8H for 10 Days, #30 TAB Continued Medications: Albuterol Hfa (Ventolin Hfa) 200 Puffs/93826 Mcg Aers 2-4 PUFFS INH Q6H Albuterol Sulf (Proventil 0.083% 2.5MG/3ML) 2.5 Mg/3 Ml Nebu 2.5 MG INH QAM Calcium Acetate (Phoslo 667 Mg) 667 Mg Cap 2 CAP PO TID, CAP Everolimus (Afinitor Disperz) 3 Mg Tab 1 TAB PO BID Guaifenesin Ext Rel (Mucinex Ext Rel) 600 Mg Tab 600 MG PO AMHS, TAB Insulin Aspart (Novolog) 100 Units/Ml Inj UNITS SC UD SLIDING SCALE Insulin Glargine (Lantus) 100 Unit/Ml Inj 3 UNITS SC HS Levothyroxine Sodium (Synthroid) 75 Mcg Tab 75 MCG PO QAM, TAB Melatonin (Melatonin) 3 Mg Tab 3 MG PO HS PRN for Insomnia Multivitamin (Multivitamin) Tab 1 TAB PO QPM, TAB Ondansetron Hcl (Zofran) 4 Mg Tab 4 MG PO Q6 PRN for Nausea, TAB Oxycodone Hcl (Oxycodone Hcl) 5 Mg Cap 5 MG PO UD PRN for Pain, CAP Pantoprazole (Pantoprazole Sodium) 40 Mg Tab 40 MG PO BID Prednisone (Prednisone) 5 Mg Tab 5 MG PO QAM, TAB Sertraline (Zoloft) 100 Mg Tab 150 MG PO HS, TAB Sulfamethoxazole-Trimethoprim (Bactrim 400MG/80MG) 1 Tab Tab 1 TAB PO 2XWK, TAB TAKE THIS MEDICATION EVERY SATURDAY AND SATURDAY Tacrolimus (Tacrolimus) 1 Mg Cap 3 MG PO BID Tobramycin Sulf (Tobramycin Sulfate) 40 Mg/Ml Inj 2 ML INH DAILY, #120 Triamcinolone Acet (Triamcinolone Acetonide) 45 Appln/15 Gm Cr 1 APPLN TOP BID for 30 Days, #30 GM Zolpidem Tartrate (Zolpidem Tartrate) 5 Mg Tab 1 TAB PO HS PRN for Sleep for 30 Days, #30 TAB 2 Refills Discharge Exam Doing well, sitting up in chair, no complaining, no fever and chill, eating good , normal bowel movement Review of Systems: Constitutional: No fever, No chills, No sweats, No weight loss, No weakness , No fatigue, No problem reported Eyes: No worsening of vision, No eye pain, No redness, No discharge, No diplopia, No problem reported ENT: No hearing loss, No unusual epistaxis, No nasal symptoms, No sore throat, No tinnitus, No dental problems, No trouble swallowing, No problem reported Respiratory: No cough, No sputum, No wheezing, No shortness of breath, No dyspnea on exertion, No dyspnea at rest, No hemoptysis, No problem reported Cardiovascular: No chest pain, No orthopnea, No PND, No edema, No claudication, No palpitations, No problem reported Abdomen: No pain, No nausea, No vomiting, No diarrhea, No constipation, No GI bleeding, No problem reported Musculoskeletal: No joint pain, No muscle pain, No swelling, No calf pain, No problem reported Genitourinary - Male: No hematuria, No dysuria, No urinary frequency, No urinary urgency, No urinary hesitancy, No urinary retention, No urinary incontinence, No penile discharge, No lesions, No impotence, No problem reported Neurologic: No memory loss, No paralysis, No weakness, No numbness/tingling , No vertigo, No balance problems, No problem reported Psychiatric: No depression symptoms, No anhedonism, No anxiety, No insomnia , No substance abuse, No problem reported Endocrine: No fatigue, No excessive thirst, No excessive urination, No problem reported Hematologic / Lymphatic: No abnormal bleeding/bruising, No clotting problems , No swollen lymph nodes, No night sweats, No problem reported Integumentary: No rash, No itch, No new/changing skin lesions, No color change, No bleeding, No problem reported Physical Exam: General Appearance: WD/WN, no apparent distress Eyes: normal inspection, PERRL ENT: normal ENT inspection, hearing grossly normal, TMs normal Neck: supple, no adenopathy, thyroid normal Respiratory/Chest: chest non-tender, normal breath sounds, no respiratory distress, + decreased breath sounds Cardiovascular: regular rate, rhythm, no edema, no gallop, no JVD Abdomen / GI: normal bowel sounds, non tender, soft, no organomegaly, no pulsatile mass, normal rectal exam, occult blood negative Extremities: normal inspection, no calf tenderness, normal capillary refill , no pedal edema, normal range of motion Neurologic/Psychiatric: batch still operator II-XII nml as tested, no motor/sensory deficits , alert, normal mood/affect, normal reflexes Skin: normal color, warm/dry Hospital Course 66 y/o male with who presents with abdominal pain and fever. Initial CXR is suggestive of a LLL infiltrate. Abdominal CT revealed gall bladder thickening and mild stranding, fat stranding suggesting possible acute diverticulitis. After talk to him patient's transplant team in [place], feel to patient more likely has GI infection and more likely possible acute diverticulitis. 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 Last fever 38 or higher was 8/3, no fever for more than 48 hours -was admit to med/surg -General surgery consulted, appreciate recs: No acute surgical intervention indicated at this time. Continue IV antibiotics and current medical management. General Surgery signed off. -HIDA scan negative -Repeat CXR 02/08 shows improvement of base infiltrate compared to 02/06 -RUQ U/S shows cirrhosis. Nonspecific gallbladder wall thickening. No shadowing gallstones identified and sonographic Choudhary's sign absent. This is nonspecific and may be related to cirrhosis. Findings equivocal for acute cholecystitis which is not excluded. Non-obstructing right renal calculus. -Tolerating PO diet -Infectious disease consulted, appreciate recs: -Blood cultures NGTD x 3 -Urine legionella pending, pcp please follow up -D/C IV Levaquin and Zosyn -Levaquin 250 mg PO q48h, renal dosing. Day #4 of 7 of abx -Flagyl 500 mg PO q8h, give after dialysis. Day #4 of [address] Aguilar's recommendations. -Procalcitonin elevated at 2.94 -Repeat ESR WNL -Repeat CRP increased to 9.61 -Called pt's transplant team on 02/08/2017, spoke to a Dr. Bernard Aguilar regarding pt's care. He recommended decreasing antibiotics and focusing on GI coverage. Recommended Levaquin and Flagyl. PO is okay if patient is eating. He recommended treating for possible diverticulitis and then continuing Flagyl for an extra week as pt has history of recurrent C. diff. Can stop vancomycin if MRSA negative. Transplant team will call pt so he can follow up in a few weeks. H/o b/l lung transplant -Increase Prednisone to 10 mg PO qd on 02/08/2017, home dose was 5 mg daily -Continue everolimus 3 mg PO BID and tacrolimus 3 mg PO BID -Spoke with transplant team as above ESRD on HD -Nephrology consulted appreciate recs: consider increasing chronic steroid due to acute stress and hypotension. 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 - call your primary care physician OR go to local emergency room if has any fever/chill, chest pain, shortness of breathing, nausea/vomiting/abdominal pain , facial droop/slurry speech/local weakness, or if has any questions. - fall precaution - diet as instructed - you need to follow up with your subspecialists - you should understand that it is important to follow up the above instruction , and "not following the above instruction" may cause delayed or missed care of your medical conditions which may cause permanent organ damage and even . Total Time Spent: Greater than 30 minutes This includes examination of the patient, discharge planning, medication reconciliation, and communication with other providers. Discharge Instructions Please refer to the electronic Patient Visit Report (Discharge Instructions) for additional information. Additional Copies To Eugenio Lockwood M.D.
[2017-02-10] MEDS: INSULIN ASPART 100 UNITS/ML 3 ML PEN SC SCH (09:44)
[2017-02-10 09:48] VITALS: BP 111/69; PULSE 78; TEMP 36.7; O2SAT 96
[2017-02-11 11:07] LABS: LEGIONELLA ANTIGEN NOT DETECTED (NOT DETECTED)
== END 2017-02-10 10:00 | disposition home or self-care (01) | DRG 444 ==
LOC: C.EDB 20:37 → C.4E 02-07 01:19 → EDBEDREQ 02-07 01:31 → ENRESERV 02-07 01:33
PROVIDERS: ADMIT Internal Medicine; ATTEND Hospitalist
DX: K81.0 Acute cholecystitis (principal); J18.9 Pneumonia, unspecified organism; N18.6 End stage renal disease; K57.92 Diverticulitis of intestine, part unspecified, without perforation or abscess without bleeding; I12.0 Hypertensive chronic kidney disease with stage 5 chronic kidney disease or end stage renal disease; Z94.2 Lung transplant status; R50.81 Fever presenting with conditions classified elsewhere; R19.7 Diarrhea, unspecified; D69.6 Thrombocytopenia, unspecified; I95.9 Hypotension, unspecified; E09.22 Drug or chemical induced diabetes mellitus with diabetic chronic kidney disease; T38.0X5S Adverse effect of glucocorticoids and synthetic analogues, sequela; K74.60 Unspecified cirrhosis of liver; D64.9 Anemia, unspecified; E03.9 Hypothyroidism, unspecified; K21.9 Gastro-esophageal reflux disease without esophagitis; F32.9 Major depressive disorder, single episode, unspecified; G47.33 Obstructive sleep apnea (adult) (pediatric); Z99.2 Dependence on renal dialysis; Z79.4 Long term (current) use of insulin; Z79.52 Long term (current) use of systemic steroids; Z79.891 Long term (current) use of opiate analgesic; Z79.899 Other long term (current) drug therapy

== ENCOUNTER → 2017-03-18 | Outpatient (CLI) | payer OTHER ==
[~2017-03-18] MED LIST changes: +ALBINS/ INH; -ALBU18002; -ALBU1NEB10 INH; -AMPHOTERICIN INH; -DILT120C68 PO; -EVER0.5T PO; +LVQ500 PO; +MTR500 PO; -MYC180 PO; +NVLG SC; -NVLGI SC; -POSA1TAB PO; +PRG1 PO; +SULF-183 PO; -SUVO1TAB PO; -TACR0.5C3 PO; +VNTHFA/IN INH; +[UNRECOGNIZED DRUG - CODE] INH; +[UNRECOGNIZED DRUG - CODE] PO; -tobramycin INH
--- NOTE | 2017-03-18 11:14 | DIAGNOSTIC IMAGING REPORT ---
CHEST 2 VIEWS ROUTINE CLINICAL HISTORY: F/U LUNG TRANSPLANT COMPARISON STUDY: February 08, 2017 FINDINGS: The heart is borderline enlarged. There is a retrocardiac opacity consistent with a hiatal hernia. There are bilateral postsurgical changes consistent with a clinical history of a lung transplantation. There is no acute parenchymal consolidation. There is no failure. There are no pleural effusions. There are a few scattered postinflammatory calcifications.[ IMPRESSION: No active disease in the chest. Electronically signed by: Julius Morgan M.D. 03/18/2017 11:12 AM Dictated Date/Time: 03/18/2017 11:12 AM
== END | disposition home or self-care (01) ==
LOC: C.RADBC 10:43
PROVIDERS: ATTEND Nurse Practitioner Family
DX: T86.819 Unspecified complication of lung transplant (principal); Y83.0 Surgical operation with transplant of whole organ as the cause of abnormal reaction of the patient, or of later complication, without mention of misadventure at the time of the procedure

== ENCOUNTER 2017-03-23 11:29 | Emergency (ER) | payer OTHER ==
[~2017-03-23] VITALS: Ht 170.2 cm; Wt 74.0 kg
[~2017-03-23 11:29] MED LIST changes: -SULF-183 PO
[2017-03-23 11:33] VITALS: TEMP 37.3
[2017-03-23] MEDS ORDERED: SODIUM CHLORIDE 0.9% 1000ML 1,000 ML IV STA ×2 (12:11→13:30)
[2017-03-23 12:14] VITALS: O2SAT 93; Ht 170.2 cm; Wt 74.0 kg
--- NOTE | 2017-03-23 12:31 | DIAGNOSTIC IMAGING REPORT ---
CHEST ONE VIEW PORTABLE CLINICAL HISTORY: Sepsis COMPARISON STUDY: 03/18/2017 FINDINGS: The heart is at the upper limits of normal in size. Multiple surgical clips project over the mediastinum. There is a retrocardiac opacity consistent with a hiatal hernia. There are developing left basilar airspace opacities, pneumonia versus atelectasis.[ IMPRESSION: Developing left basilar airspace opacities, pneumonia versus atelectasis. Electronically signed by: Julius Morgan M.D. 03/23/2017 12:30 PM Dictated Date/Time: 03/23/2017 12:29 PM
[2017-03-23] MEDS ORDERED: DOXYCYCLINE IV 100 MG in DEXTROSE 5% 100ML 100 ML IV STA (13:20)
[2017-03-23] MEDS ORDERED: SULF-183 PO (13:38)
[2017-03-23 13:41] LABS: PARTIAL THROMBOPLASTIN RATIO 1.2; PROTHROMBIN TIME (PATIENT) 11.2 SECONDS (9.0-12.0)
[2017-03-23 13:45] LABS: HEMATOCRIT 34.8 % (42-52); MEAN CELL VOLUME 90.9 fL (80-100); MEAN CORPUSCULAR HEMOGLOBIN 29.8 pg (25-34); MEAN CORPUSCULAR HGB CONC 32.8 g/dl (32-36); RED BLOOD COUNT 3.83 M/uL (4.7-6.1); WHITE BLOOD COUNT 5.83 K/uL (4.8-10.8)
[2017-03-23 13:50] LABS: ALB/GLOB RATIO 0.7 (0.9-2); BUN/CREATININE RATIO 7.2 (10-20); CALCIUM 8.7 mg/dl (8.5-10.1); CREATININE 5.9 mg/dl (0.60-1.40); POTASSIUM 3.7 mmol/L (3.5-5.1)
[2017-03-23 13:56] VITALS: BP 116/69; PULSE 80; O2SAT 96
[2017-03-23 14:00] LABS: BASO % 0.2 %; BASO ABS # 0.01 K/uL (0-0.2); EOS % 2.1 %; IG% 1.2 %; LYMPH % 17.2 %; MEAN PLATELET VOLUME 10.3 fL (7.4-10.4); MONO % 9.9 %; NEUT % 69.4 %; PLATELET COUNT 61 K/uL (130-400)
[2017-03-23 14:02] LABS: COMPLETE YES
--- NOTE | 2017-03-23 14:23 | EMERGENCY ROOM VISIT NOTE ---
History Report prepared by Renita: Walker Rodgers Under the Supervision of: Dr. Angel Hunter M.D. First contact with patient: 11:58 Chief Complaint: FEVER Stated Complaint: FEVER, ACHEY, CHILLS, DOUBLE LUNG TRANSPLANT History of Present Illness The patient is a 66 year old male who presents to the Emergency Room with complaints of a constant fever that started yesterday. He rates his discomfort as a 2/10 in severity. The patient is accompanied by his who states that his fever was up to 100.6 The patient states that he felt "achy" this morning but feels better now. The patient also admits to a productive cough with bloody mucous alternating with a dry cough. His states that she gave him two Acetaminophen and Oxycodone at 0800 this morning and Oxycodone. 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 Diamond in [place]. His reports that he had a bronchoscopy done four days ago due to his PFTs falling in the last three months. She states that he was diagnosed with Stenotrophomonas Maltophilia and was given Bactrim, which he started yesterday. His states that he had one dose last night and one dose this morning. She states that she talked to the field marketing coordinator and he said to talk to Dr. Aguilar, Pulmonology, to determine if there is a rejection or not.The patient admits that he is on dialysis and makes "very little urine". His states that his blood pressure usually fluctuates and there is "no normal". This systolic, however, is usually over 100. He denies being normally on oxygen, SOB, and chest pain. Source of History: patient, spouse/significant other Onset: yesterday Position: other (global) Symptom Intensity: 100.6 Quality: other (fever) Timing: constant Modifying Factors (Relieving): other (Aceta andminophen, Oxycodone) Associated Symptoms: + urinary symptoms, No chest pain, No SOB Review of Systems See HPI for pertinent positives & negatives. A total of 10 systems reviewed and were otherwise negative. Past Medical & Surgical Medical Problems: (1) A-fib (2) Abdominal pain (3) Anemia (4) Asthma (5) Bronchitis (6) Cancer (7) Chronic steroid use (8) Clostridium difficile colitis (9) Diverticulitis (10) Gastrointestinal disorder (11) Heart disease (12) High cholesterol (13) Hypertension (14) Liver disease (15) Liver failure (16) Pneumonia (17) Pulmonary fibrosis (18) Secondary hyperparathyroidism of renal origin (19) Sleep apnea (20) Thyroid disease Surgical Problems: (1) History of cardiac catheterization (2) History of thoracotomy (3) Lung transplanted Family History FHx: heart disease Hypertension Social History Smoking Status: Never Smoker Alcohol Use: none Drug Use: none Marital Status: Housing Status: lives with significant other Occupation Status: retired Current/Historical Medications Scheduled Albuterol Hfa (Ventolin Hfa), 2-4 PUFFS INH Q6H Albuterol Sulf (Proventil 0.083% 2.5MG/3ML), 2.5 MG INH QAM Calcium Acetate (Phoslo 667 Mg), 2 CAP PO TID Everolimus (Afinitor Disperz), 1 TAB PO BID Guaifenesin Ext Rel (Mucinex Ext Rel), 600 MG PO AMHS Insulin Aspart (Novolog), UNITS SC UD Insulin Glargine (Lantus), 3 UNITS SC HS Levothyroxine Sodium (Synthroid), 75 MCG PO QAM Multivitamin (Multivitamin), 1 TAB PO QPM Pantoprazole (Pantoprazole Sodium), 40 MG PO BID Prednisone (Prednisone), 5 MG PO QAM Sertraline (Zoloft), 150 MG PO HS Sulfamethoxazole-Trimethoprim (Smz-Tmp Ds), 1 TAB PO BID Tacrolimus (Tacrolimus), 3 MG PO BID Tobramycin Sulf (Tobramycin Sulfate), 2 ML INH DAILY Triamcinolone Acet (Triamcinolone Acetonide), 1 APPLN TOP BID Scheduled PRN Melatonin (Melatonin), 3 MG PO HS PRN for Insomnia Ondansetron Hcl (Zofran), 4 MG PO Q6 PRN for Nausea Oxycodone Hcl (Oxycodone Hcl), 5 MG PO UD PRN for Pain Zolpidem Tartrate (Zolpidem Tartrate), 1 TAB PO HS PRN for Sleep Allergies Coded Allergies: Cat Dander (Unverified Allergy, Mild, RASH, 03/23/17) Dog Dander (Unverified Allergy, Mild, RASH, 03/23/17) POLLEN (Unverified Allergy, Mild, RASHES, 03/23/17) Physical Exam Vital Signs Date Time Temp Pulse Resp B/P (MAP) Pulse Ox O2 Delivery O2 Flow Rate FiO2 03/23/17 13:56 80 18 116/69 96 Nasal Cannula 2.0 03/23/17 13:50 72 18 104/59 94 Nasal Cannula 2.0 03/23/17 13:13 83 18 94/59 94 Nasal Cannula 2.0 03/23/17 12:35 78 18 91/60 97 Nasal Cannula 2.0 03/23/17 12:14 93 Nasal Cannula 2.0 03/23/17 12:03 86 12 84/56 92 Nasal Cannula 2.0 03/23/17 12:03 Nasal Cannula 2.0 03/23/17 11:58 82 03/23/17 11:56 88 Room Air 03/23/17 11:33 37.3 90 20 98/63 90 Room Air Physical Exam Constitutional: Vital signs reviewed. Hypotensive. Eyes: Pupils are equal round reactive to light. Conjunctiva are noninjected. ENT: Pharynx is clear without erythema or exudate. Mucous membranes are moist. Neck supple without meningeal signs. Respiratory: Fine crackles at right base. Breath sounds are equal bilaterally. Hypoxic. Cardiovascular: Regular rate and rhythm. No rubs or gallops. GI: Soft, nondistended and nontender. Bowel sounds are present. Musculoskeletal: No peripheral edema. No lower extremity tenderness. Integumentary: No cyanosis. Ecchymosis to upper eyelids bilaterally. No petechiae or purpura. Neurological: The patient is awake and alert. No focal deficits. Psychiatric: Normal affect. Medical Decision & Procedures ER Provider Diagnostic Interpretation: X-ray results as stated below per interpretation by me and the radiologist: CHEST ONE VIEW PORTABLE CLINICAL HISTORY: Sepsis COMPARISON STUDY: 03/18/2017 FINDINGS: The heart is at the upper limits of normal in size. Multiple surgical clips project over the mediastinum. There is a retrocardiac opacity consistent with a hiatal hernia. There are developing left basilar airspace opacities, pneumonia versus atelectasis.[ IMPRESSION: Developing left basilar airspace opacities, pneumonia versus atelectasis. Electronically signed by: Julius Morgan M.D. 03/23/2017 12:30 PM Dictated Date/Time: 03/23/2017 12:29 PM Laboratory Results 03/23/17 12:43 Red Blood Count 3.83, Mean Corpuscular Volume 90.9, Mean Corpuscular Hemoglobin 29.8, Mean Corpuscular Hemoglobin Concent 32.8, Mean Platelet Volume 10.3, Neutrophils (%) (Auto) 69.4, Lymphocytes (%) (Auto) 17.2, Monocytes (%) (Auto) 9.9, Eosinophils (%) (Auto) 2.1, Basophils (%) (Auto) 0.2, Neutrophils # (Auto) 4.05, Lymphocytes # (Auto) 1.00, Monocytes # (Auto) 0.58, Eosinophils # (Auto) 0.12, Basophils # (Auto) 0.01 03/23/17 12:43 Test 03/23/17 12:43 03/23/17 13:02 White Blood Count 5.83 K/uL (4.8-10.8) Red Blood Count 3.83 M/uL (4.7-6.1) Hemoglobin 11.4 g/dL (14.0-18.0) Hematocrit 34.8 % (42-52) Mean Corpuscular Volume 90.9 fL (80-100) Mean Corpuscular Hemoglobin 29.8 pg (25-34) Mean Corpuscular Hemoglobin Concent 32.8 g/dl (32-36) Platelet Count 61 K/uL (130-400) Mean Platelet Volume 10.3 fL (7.4-10.4) Neutrophils (%) (Auto) 69.4 % Lymphocytes (%) (Auto) 17.2 % Monocytes (%) (Auto) 9.9 % Eosinophils (%) (Auto) 2.1 % Basophils (%) (Auto) 0.2 % Neutrophils # (Auto) 4.05 K/uL (1.4-6.5) Lymphocytes # (Auto) 1.00 K/uL (1.2-3.4) Monocytes # (Auto) 0.58 K/uL (0.11-0.59) Eosinophils # (Auto) 0.12 K/uL (0-0.5) Basophils # (Auto) 0.01 K/uL (0-0.2) RDW Standard Deviation 55.4 fL (36.4-46.3) RDW Coefficient of Variation 16.6 % (11.5-14.5) Immature Granulocyte % (Auto) 1.2 % Immature Granulocyte # (Auto) 0.07 K/uL (0.00-0.02) Prothrombin Time 11.2 SECONDS (9.0-12.0) Prothromb Time International Ratio 1.0 (0.9-1.1) Activated Partial Thromboplast Time 30.3 SECONDS (21.0-31.0) Partial Thromboplastin Ratio 1.2 Anion Gap 8.0 mmol/L (3-11) Est Creatinine Clear Calc Drug Dose 11.2 ml/min Estimated GFR () 10.4 Estimated GFR (Non- 9.0 BUN/Creatinine Ratio 7.2 (10-20) Calcium Level 8.7 mg/dl (8.5-10.1) Total Bilirubin 0.8 mg/dl (0.2-1) Aspartate Amino Transf (AST/SGOT) 28 U/L (15-37) Alanine Aminotransferase (ALT/SGPT) 23 U/L (12-78) Alkaline Phosphatase 93 U/L (45-117) Total Protein 6.8 gm/dl (6.4-8.2) Albumin 2.8 gm/dl (3.4-5.0) Globulin 4.0 gm/dl (2.5-4.0) Albumin/Globulin Ratio 0.7 (0.9-2) Bedside Lactic Acid Venous 1.56 mmol/L (0.90-1.70) Laboratory results as reviewed by me. Medications Administered Medications (Trade) Dose Ordered Sig/Beverley Route Start Time Stop Time Status Last Admin Dose Admin Sodium Chloride 1,000 ml @ 999 mls/hr Q1H1M STAT IV 03/23/17 12:11 03/23/17 13:11 DC 03/23/17 12:57 999 MLS/HR Doxycycline Hyclate 100 mg/ Dextrose 110 ml @ 50 mls/hr NOW STAT IV 03/23/17 13:20 03/23/17 15:31 03/23/17 13:42 50 MLS/HR Sodium Chloride 1,000 ml @ 999 mls/hr Q1H1M STAT IV 03/23/17 13:30 03/23/17 14:30 03/23/17 13:59 999 MLS/HR ECG Indication: other (Nurse protocol) Rate (beats per minute): 82 Rhythm: normal sinus Findings: Q waves (Inferior), T-wave inversion (Inferior, septally), no ectopy ED Course 1203: The patient was evaluated in room C10. A complete history and physical exam was performed. 1312: I reevaluated the patient and he currently has no complaints. His blood pressure improved slightly with a systolic of 94. His oxygen saturation is currently 95 on 2L of oxygen. I also discussed his test results. 1317: I discussed the patient's case with Dr. Aguilar, [facility]. He reports that the patient should be transferred to [place] to ICU. He recommends another liter of normal saline and starting him on Doxycycline IV. Dr. Aguilar agreed that air transportation is best. 1320: Ordered Doxycycline Hyclate 100 mg/ Dextrose 110 ml @ 50 mls/hr IV. 1327: I reevaluated the patient and discussed the treatment plan with the patient and his . He agrees to the plan. 1330: Ordered Sodium Chloride 1000 ml @ 999 mls/hr IV. 1407: I reevaluated the patient and his blood pressure is 116/69 and his oxygen saturation is 96% on 2L NC. [facility] is here and the patient is being transferred. Medical Decision This is a 66-year-old male who presents with fever, hypotension and hypoxia. Differential diagnosis includes sepsis, septic shock, pneumonia, SIRS, transplant rejection. I did perform a limited focused review of portions of the patient's old chart on the electronic medical record. The patient was admitted in February for diverticulitis and pneumonia. I did evaluate the patient as noted above. IV access was established. The patient was placed on a continuous patient monitor. The patient is hypotensive. He was given normal saline IV with some slight improvement of his blood pressure. I did order and personally review the patient's 12-lead EKG and chest x-ray as described above. Chest x-ray demonstrates a left-sided pneumonia. I did discuss the case with of pulmonology at [facility]. He requested that the patient be transferred to this facility. He will be admitted to an ICU bed. He recommended patient receive a liter normal saline bolus and IV doxycycline. I did order these. We did discuss mode of transportation and agreed that her chest patient would be indicated given the patient's unstable vital signs and severity of illness. I did order and review the patient's blood work as noted in the electronic medical record. The patient is anemic. He has a left shift. He also has trouble cytopenia. His creatinine is elevated consistent with his end-stage renal disease with a normal potassium. I did review the test results and need for transfer with the patient. He did agree to the transfer. He was transported via helicopter to [facility]. His last recorded blood pressure was normotensive. Medication Reconcilliation Current Medication List: was personally reviewed by me Blood Pressure Screening Patient's blood pressure: Low blood pressure Consults Time Called: [phone] Consulting Physician: Dr. Aguilar, [facility] Returned Call: [phone] I discussed the patient's case with Dr. Aguilar, [facility]. He reports that the patient should be transferred to [place] to ICU. He recommends another liter of normal saline and starting him on Doxycycline IV. Dr. Aguilar agreed that air transportation is best. Impression Primary Impression: Sepsis Additional Impressions: Septic shock Lung transplant recipient ESRD (end stage renal disease) Thrombocytopenia Anemia Left lower lobe pneumonia Critical Care I have personally spent 38 minutes of critical care time in the direct management of this patient. This includes bedside care, interpretation of diagnostic studies, and testing, discussion with consultants, patient, and family members, and other required patient management activities. This 38 minutes is in excess of all separately billable procedures. Scribe Attestation The scribe's documentation has been prepared under my direct and personally reviewed by me in its entirety. I confirm that the note above accurately reflects all work, treatment, procedures, and medical decision making performed by me. Departure Information Dispostion Transfer Acute Care Facility Referrals Eugenio Lockwood M.D. (PCP) Patient Instructions [facility] Sepsis Post Crystalloid Evaluation Date: Mar 23, 2017 Time: 13:56 Capillary Refill Exam Normal (less than 2 seconds) Cardiopulmonary Evaluation Lung Exam: + crackles Heart Exam: regular rate, rhythm Vitals Last Vital Signs Documentation Date Time Temp Pulse Resp B/P (MAP) Pulse Ox O2 Delivery O2 Flow Rate FiO2 03/23/17 13:56 80 18 116/69 96 Nasal Cannula 2.0 03/23/17 11:33 37.3 Presence Of Septic Shock Problem Qualifiers Primary Impression: Sepsis Sepsis type: sepsis due to unspecified organism Qualified Codes: A41.9 - Sepsis, unspecified organism Additional Impressions: Anemia Anemia type: unspecified type Qualified Codes: D64.9 - Anemia, unspecified Left lower lobe pneumonia Pneumonia type: due to other aerobic Gram-negative bacteria Qualified Codes: J15.6 - Pneumonia due to other aerobic gram-negative bacteria
== END 2017-03-23 14:15 | disposition short-term general hospital (02) ==
LOC: C.EDB 11:31 → C.EDC 14:15
DX: A41.9 Sepsis, unspecified organism (principal); R65.21 Severe sepsis with septic shock; Z94.2 Lung transplant status; N18.6 End stage renal disease; D69.6 Thrombocytopenia, unspecified; D64.9 Anemia, unspecified; J15.6 Pneumonia due to other Gram-negative bacteria; J45.909 Unspecified asthma, uncomplicated; I12.0 Hypertensive chronic kidney disease with stage 5 chronic kidney disease or end stage renal disease; Z87.01 Personal history of pneumonia (recurrent); Z98.890 Other specified postprocedural states; Z82.49 Family history of ischemic heart disease and other diseases of the circulatory system; Z79.4 Long term (current) use of insulin; Z79.52 Long term (current) use of systemic steroids

== ENCOUNTER → 2017-06-27 | Outpatient (CLI) | payer OTHER ==
[~2017-06-27] MED LIST changes: -LVQ500 PO; -MTR500 PO; +PANT40TA2 PO; -PRG1 PO; -PRT/40 PO; +SULF-183 PO; -SULF400T7 PO; +TACR1CAP14 PO
--- NOTE | 2017-07-03 16:38 | PULMONARY FUNCTION TEST ---
Spirometry shows a normal forced vital capacity and FEV1. The FEV1/FVC ratio was 73%. This would be borderline, but still considered within the limits of normal. Overall lung function was normal. Flow volume loops would suggest the patient may not have optimally performed the study. Comparison with prior study done 02/28/2017 shows there has been no change in function.
== END | disposition home or self-care (01) ==
LOC: C.RC 09:23
PROVIDERS: ATTEND Internal Medicine Pulmonary Disease
DX: R06.02 Shortness of breath (principal); Z94.2 Lung transplant status

== ENCOUNTER → 2017-09-13 | Outpatient (CLI) | payer OTHER ==
[~2017-09-13] MED LIST changes: -SULF-183 PO; +SULF-302 PO
--- NOTE | 2017-09-13 15:41 | ECHOCARDIOGRAM REPORT ---
*NOTICE TO RECEIVING CONSTITUTION PARTY AGENCY This information is strictly Confidential and protected under [place] law. [place] law prohibits you from making any further disclosure of this information unless further disclosure is expressly permitted by the written consent of the person to whom it pertains or is authorized by law. A general authorization for the release of medical or other information is not sufficient for this purpose. Hospital accepts no responsibility if the information is made available to any other person, INCLUDING THE PATIENT. Interpretation Summary * Name: IRON RAND JR Study Date: 09/13/2017 12:45 PM BP: 118/68 mmHg * Patient Location: [facility] HR: 89 * : 1950 (M/d/yyyy) Gender: Male Height: 68 in * Age: 66 yrs Ethnicity: [place] Weight: 168 lb * Ordering Physician: Arron Larose * Referring Physician: Tevar, Florentino * Performed By: Drew Alicea RCS * * Reason For Study: ESRD, Transplant, Pre-Op Eval * BSA: 1.9 m2 * -- Conclusions -- * Left ventricular systolic function is normal. * No regional wall motion abnormalities noted. * Ejection Fraction = 55-60%. * There is moderate concentric left ventricular hypertrophy. * Grade I diastolic dysfunction, (abnormal relaxation pattern). Procedure Details * A complete two-dimensional transthoracic echocardiogram was performed (2D, M-mode, Doppler and color flow Doppler). Left Ventricle * The left ventricle is normal in size. * There is moderate concentric left ventricular hypertrophy. * Left ventricular systolic function is normal. * Ejection Fraction = 55-60%. * No regional wall motion abnormalities noted. Right Ventricle * The right ventricle is normal in size and function. Atria * The left atrium is mildly dilated. * Right atrial size is normal. * No ASD detected; PFO is not assessed. Mitral Valve * The mitral valve leaflets appear normal. There is no evidence of stenosis, fluttering, or prolapse. * There is no mitral valve stenosis. * Significant mitral regurgitation is absent. Tricuspid Valve * The tricuspid valve anatomy is normal. * There is no tricuspid stenosis. * Significant tricuspid regurgitation is absent. Aortic Valve * The aortic valve is not well visualized. * The aortic valve opens well. * Aortic stenosis is absent. * No aortic regurgitation is present. Pulmonic Valve * The pulmonary valve is not well seen, but the Doppler examination is normal without significant regurgitation or stenosis. Great Vessels * The aortic root is normal size. * The pulmonary is not well visualized. Pericardium/Pleural * There is no pericardial effusion. Great Vessels * Normal inferior vena cava size and collapsability with sniff indicates a normal right atrial pressure of 3 mmHg Left Ventricular Diastolic Function * Grade I diastolic dysfunction, (abnormal relaxation pattern). MMode 2D Measurements and Calculations IVSd 1.1 cm IVSs 1.2 cm LVIDd 4.7 cm LVIDs 3.3 cm LVPWd 1.1 cm LVPWs 1.3 cm IVS/LVPW 1.0 FS 30.6 % EDV(Teich) 101.7 ml ESV(Teich) 42.6 ml EF(Teich) 58.1 % EDV(cubed) 103.0 ml ESV(cubed) 34.4 ml EF(cubed) 66.6 % % IVS thick 8.2 % % LVPW thick 17.2 % LV mass(C)d 188.2 grams LV mass(C)dI 99.2 grams/m\S\2 LV mass(C)s 129.8 grams LV mass(C)sI 68.4 grams/m\S\2 SV(Teich) 59.1 ml SI(Teich) 31.2 ml/m\S\2 SV(cubed) 68.6 ml SI(cubed) 36.1 ml/m\S\2 Ao root diam 3.8 cm Ao root area 11.6 cm\S\2 ACS 1.3 cm LA dimension 4.3 cm LA/Ao 1.1 EDV(MOD-sp4) 130.0 ml ESV(MOD-sp4) 58.0 ml EF(MOD-sp4) 55.4 % EDV(MOD-sp2) 132.0 ml ESV(MOD-sp2) 65.0 ml EF(MOD-sp2) 50.8 % SV(MOD-sp4) 72.0 ml SI(MOD-sp4) 37.9 ml/m\S\2 SV(MOD-sp2) 67.0 ml SI(MOD-sp2) 35.3 ml/m\S\2 Doppler Measurements and Calculations MV E max sam 63.6 cm/sec MV A max sam 71.2 cm/sec MV E/A 0.89 MV P1/2t max sam 90.2 cm/sec MV P1/2t 62.8 msec MVA(P1/2t) 3.5 cm\S\2 MV dec slope 420.3 cm/sec\S\2 MV dec time 0.19 sec Ao V2 max 120.4 cm/sec Ao max PG 5.8 mmHg Ao max PG (full) 4.1 mmHg LV V1 max PG 1.7 mmHg LV V1 max 65.7 cm/sec PA V2 max 84.3 cm/sec PA max PG 2.8 mmHg PI max sam 159.5 cm/sec PI max PG 10.2 mmHg PI dec slope 218.6 cm/sec\S\2 PI P1/2t 213.7 msec TR max sam 248.5 cm/sec
== END | disposition home or self-care (01) ==
LOC: C.CPL 12:36
PROVIDERS: ATTEND Transplant Surgery
DX: Z01.810 Encounter for preprocedural cardiovascular examination (principal); N18.6 End stage renal disease; Z99.2 Dependence on renal dialysis; Z76.82 Awaiting organ transplant status

== ENCOUNTER → 2017-10-03 | Outpatient (CLI) | payer OTHER ==
--- NOTE | 2017-10-03 08:34 | DIAGNOSTIC IMAGING REPORT ---
ABDOMEN COMPLETE (US) HISTORY: PRE OP. COMPARISON: None. FINDINGS: Pancreas: The pancreas demonstrates a normal echotexture. Liver: Mild fatty infiltration. Gallbladder: No gallbladder wall thickening. No gallstones. CBD: 5 mm Kidneys: No hydronephrosis. Several bilateral punctate nonobstructing cortical calcifications Spleen: Mild prominence in terms of size at 13 cm Aorta: Normal in caliber. IVC: Patent. IMPRESSION: 1. Mild fatty infiltration of liver. 2. Mild splenic prominence of 13 cm. 3. Several small bilateral renal nonobstructing calcifications. 4. Study is otherwise negative.. The above report was generated using voice recognition software. It may contain grammatical, syntax or spelling errors. Electronically signed by: Wesley Baker M.D. 10/03/2017 8:33 AM Dictated Date/Time: 10/03/2017 8:28 AM
== END | disposition home or self-care (01) ==
LOC: C.ULTRBC 07:40
PROVIDERS: ATTEND Internal Medicine
DX: Z01.818 Encounter for other preprocedural examination (principal); N20.0 Calculus of kidney

== ENCOUNTER → 2017-11-20 | Outpatient (CLI) | payer OTHER ==
[~2017-11-20] MED LIST changes: +CINA0.42 PO; -MELA3TAB PO; +MELATAB2 PO; +MUPI1CRE; -SULF-302 PO; +SULF1TAB92 PO; -TACR1CAP14 PO; +TACR1CAP3 PO
--- NOTE | 2017-11-20 14:15 | DIAGNOSTIC IMAGING REPORT ---
WHOLE BODY PET/CT CLINICAL HISTORY: Squamous cell carcinoma. COMPARISON STUDY: Abdominal CT dated 02/06/2017. Chest CT dated 12/16/2015. TECHNIQUE: One hour following the IV administration of 11.48 mCi of F-18 FDG, whole body PET/CT examination was performed from the vertex to the feet. Noncontrast CT is performed for the purposes of anatomic correlation and attenuation correction. Note that this does not reflect a diagnostic CT examination. Images were reviewed on a separate [employer] independent workstation. Fused images were obtained. Standard uptake values reported are maximum values within the region of interest expressed in gm/mL. FINDINGS: PET FINDINGS: Head and neck: There is expected physiologic activity within the brain parenchyma and the salivary glands. There is a 9 x 5 mm right cervical chain lymph node seen on image #65 of the head and neck series. This is mildly FDG avid with a maximum SUV of 2.8. A 6 mm cervical node on image #62 is also mildly FDG avid with a maximum SUV of 2.4. Thorax: Evaluation of the thorax demonstrates expected physiologic myocardial activity. There is a 1.3 x 3.5 cm lesion in the subcutaneous soft tissues of the left breast seen on image #136. This demonstrates low level FDG activity maximum SUV of 2.4. Additional scattered dermal nodules with calcification are seen in the left breast on images #130 7 #138. These also demonstrate faint FDG activity with a maximum SUV of 1.6. Abdomen and pelvis: There is expected activity within the liver, spleen, kidneys, renal collecting system, and bladder. Low-level bowel activity is likely within physical limits. Lower extremities: No FDG avid lesion is identified in the right or left lower extremity. Unenhanced CT images: The brain parenchyma is normal as visualized. The bony orbits are intact and orbital contents are normal in appearance. Mild mucosal thickening is seen in the maxillary antra. The remaining paranasal sinuses and mastoid air cells are clear. The salivary and thyroid glands are normal as imaged. There is dense evidence carotid calcification of the carotid bulbs. No pathologically enlarged cervical lymph nodes are identified. The thoracic aorta is normal in caliber. The heart is enlarged and without pericardial effusion. The coronary arteries are densely calcified. Postoperative change is identified in the left upper lobe and the anterior right lung base. Patchy groundglass opacities in the left upper lobe likely representing an infectious/inflammatory pneumonitis. There are scattered calcified granulomas. Scarring is seen at the left lung base. There is no mediastinal, hilar, or axillary lymphadenopathy. The unenhanced liver is cirrhotic in morphology and heterogeneous in attenuation. There is nodularity of the surface contour. A moderate hiatal hernia is observed. The unenhanced gallbladder, pancreas, adrenal glands are grossly normal. The kidneys are atrophic and without hydronephrosis. There are numerous bilateral nonobstructing renal calculi. The spleen is enlarged, measuring 14.6 cm in length. The abdominal aorta is normal in caliber noting mild to moderate atherosclerotic calcification. There is no bowel obstruction. There is advanced colonic diverticulosis without CT evidence of acute diverticulitis. A normal appendix is visualized. No intraperitoneal free air or abdominal ascites is identified. There is no abdominal, pelvic, or inguinal lymphadenopathy. The bladder is decompressed and grossly unremarkable. The prostate gland is diminutive. The skeletal structures are osteopenic. No lytic or blastic lesion is seen. There are healed right-sided rib fractures. Degenerative change is noted throughout the spine. The lower extremity soft tissues are normal as imaged. There is advanced referral vascular disease seen in both legs. 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 IMPRESSION: 1. There are 2 subcentimeter right cervical chain lymph node that demonstrate low level FDG activity. These are pathologically indeterminant, and given the cancer history metastatic disease would be impossible to exclude. 2. There is a subcutaneous soft tissue lesion in the left breast which demonstrates low level FDG activity. This is pathologically indeterminant, and again neoplasm is not excluded given the reported history of squamous cell carcinoma. 3. Additional partially calcified subcutaneous nodules are seen in the left breast which also demonstrate and demonstrates faint FDG activity. 4. Patchy groundglass opacities are seen in the left upper lobe and likely resent a mild infectious/inflammatory pneumonitis. Clinical correlation will be required. 5. Cardiomegaly. 6. Cirrhotic liver morphology and splenomegaly. 7. There are numerous bilateral nonobstructing renal calculi. 8. Advanced colonic diverticulosis without CT evidence of acute diverticulitis. 9. Additional findings as above. Electronically signed by: Lincoln Luna M.D. 11/20/2017 2:14 PM Dictated Date/Time: 11/20/2017 1:51 PM
== END | disposition home or self-care (01) ==
LOC: C.PET 09:46
PROVIDERS: ATTEND Radiology Radiation Oncology
DX: C44.329 Squamous cell carcinoma of skin of other parts of face (principal)

== ENCOUNTER → 2018-01-29 | Outpatient (CLI) | payer OTHER ==
[~2018-01-29] MED LIST changes: +ACYC400T PO; +AMBI INH; +EMOLOIN3 TOP; +TACR1CAP PO; +VANC5CAP PO; +ZOLP10TA6 PO
[2018-01-29 14:25] LABS: BASO % 0.5 %; BASO ABS # 0.04 K/uL (0-0.2); EOS % 2.9 %; EOS ABS # 0.21 K/uL (0-0.5); HEMATOCRIT 32.7 % (42-52); HEMOGLOBIN 10.6 g/dL (14.0-18.0); IG# 0.08 K/uL (0.00-0.02); LYMPH % 26.1 %; MEAN CELL VOLUME 102.5 fL (80-100); MEAN CORPUSCULAR HEMOGLOBIN 33.2 pg (25-34); MEAN CORPUSCULAR HGB CONC 32.4 g/dl (32-36); MEAN PLATELET VOLUME 9.9 fL (7.4-10.4); MONO % 11.1 %; MONO ABS # 0.81 K/uL (0.11-0.59); NEUT % 58.3 %; NEUT ABS # 4.24 K/uL (1.4-6.5); PLATELET COUNT 170 K/uL (130-400); RED CELL DISTRIBUTION WIDTH CV 19.7 % (11.5-14.5); RED CELL DISTRIBUTION WIDTH SD 72.1 fL (36.4-46.3); WHITE BLOOD COUNT 7.28 K/uL (4.8-10.8)
[2018-01-29 14:51] LABS: ALBUMIN 3.1 gm/dl (3.4-5.0); ALKALINE PHOSPHATASE 116 U/L (45-117); ALT/SGPT 18 U/L (12-78); AST/SGOT 26 U/L (15-37); BLOOD UREA NITROGEN 24 mg/dl (7-18); CALCIUM 9.3 mg/dl (8.5-10.1); CARBON DIOXIDE 32 mmol/L (21-32); CREATININE 6.21 mg/dl (0.60-1.40); GLUCOSE 153 mg/dl (70-99); POTASSIUM 4.3 mmol/L (3.5-5.1); SODIUM 136 mmol/L (136-145); TOTAL PROTEIN 7.6 gm/dl (6.4-8.2)
[2018-01-31 19:41] LABS: FK506 TACROLIMUS HIGHLY SENS 18.5 MCG/L (5-20)
== END | disposition home or self-care (01) ==
LOC: C.LABSPEC 13:53
PROVIDERS: ATTEND Internal Medicine Pulmonary Disease
DX: Z48.3 Aftercare following surgery for neoplasm (principal); Z94.2 Lung transplant status